=== PATIENT | female | born 1940 | race Caucasian/White ===

== ENCOUNTER 2017-03-07 11:33 | Inpatient (IN) ==
[2017-03-07] MEDS ORDERED: FUROSEMIDE 100 MG/10 ML VIAL IV STA (12:01)
[2017-03-07] MEDS ORDERED: ALBUTEROL/IPRATROPIUM 3 ML NEB RESP TX STA (12:01)
[2017-03-07] MEDS ORDERED: FUROSEMIDE 100 MG/10 ML VIAL ONE (12:07)
--- NOTE | 2017-03-07 12:22 | XRay Report ---
History: Shortness of breath Date: 03/07/2017 Study: Chest x-ray AP portable Comparison exam: September 22, 2016 There is cardiomegaly. The pulmonary vasculature is slightly prominent. There is no mediastinal mass. There is some patchy and hazy perihilar parenchymal disease bilaterally, left more than right. There is no significant pleural effusion. A left subclavian transvenous pacemaker device is generally intact and is unchanged. Surgical clips overlie the soft tissues of the lower left cervical region. Osseous structures are unchanged. Impression: Cardiomegaly and evidence of CHF with pulmonary edema PROCEDURE INTERPRETED AT [facility] DEPARTMENT OF RADIOLOGY Final Report Signed by: Dr. Cee Salas
[2017-03-07 12:38] LABS: Basophils % 0.1 % (0.0-0.8); Eosinophils % 0.1 % (0.00-10.9); Hematocrit 35.6 VOL% (35.7-47.0); Hemoglobin 11.3 GM/DL (12.0-16.0); Immature Granulocytes % 0.3 %; Immature Granulocytes Absolute 0.03 #; Lymphocytes # 0.7 10*3/uL (1.4-4.0); Lymphocytes % 8.2 % (21.3-54.2); Mean Corpuscular HGB Conc 31.7 GM/DL (32-36); Mean Corpuscular Hemoglobin 29 PG (27-34); Mean Corpuscular Volume 92.5 FL (87-102); Mean Platelet Volume 9.4 FL (9.6-12.0); Monocytes # 0.4 10*3/uL (0.11-0.8); Monocytes % 4.9 % (1.7-12.7); Neutrophils # 7.7 10*3/uL (1.4-7.4); Neutrophils % 86.4 % (38.7-73.9); Platelet Count 188 T/CUMM (130-400); Red Blood Count 3.85 MC/CUMM (3.8-5.5); White Blood Count 8.9 T/CUMM (4-12)
--- NOTE | 2017-03-07 13:43 | Emergency Department Note ---
Red Reyes Manpreet, am scribing for, and in the presence of, Bird Law MD 12:08. Ani Reyes Phillip K, MD, personally performed the services described in this documentation, ascribed by Alberto Moon in my presence, and it is both accurate and complete 343 . Arrival - Arrival Chief Complaint: Shortness of Breath ED Nursing Triage Note: C/o SOB-onset 0500 this morning. +cough with white sputum. +wheezing. Denie CP. Mode of Arrival: Stretcher Limitations: No Limitations Source: Patient Time Seen by Provider: 03/07/17 11:54 - History of Present Illness HPI Narrative: Pt is a 76 y/o female, with PMHx of HTN, CAD, CVA, COPD, and GERD, who presents to the ED with CC of SOB that woke her up this AM. Pt c/o cough with white phlegm and CP. Pt was not SOB last night. Pt's PCP is Dr. Coles, sees Dr. Velazquez for cradiology, and Dr. Matthew Townsend is her paintings conservator. Pt denies any fever but states she gets cold. No other pains/complaints reported to the ED. Onset (ago): hour(s) (This AM) Consistency: constant Severity: moderate Date of Last Menstrual Period: hysterectomy Allergies/Adverse Reactions: Allergies Allergy/AdvReac Type Severity Reaction Status Date / Time TONY Inhibitors Allergy Verified 08/18/15 07:09 propranolol [From Inderal LA] Allergy Verified 08/18/15 07:09 ranolazine [From Ranexa] Allergy Verified 08/18/15 07:09 Home Medications: Home Medications Medication Instructions Recorded Confirmed Type Ascorbic Acid [Vitamin C] 500 mg PO DAILY W/LUNCH 08/18/15 09/22/16 History Aspirin EC Tab 81 mg PO DAILY 08/18/15 09/22/16 History Atorvastatin [Lipitor] 40 mg PO BEDTIME 08/18/15 09/22/16 History Dabigatran [Pradaxa] 150 mg PO BID 08/18/15 09/22/16 History Esomeprazole Magnesium [Nexium] 40 mg PO DAILY 08/18/15 09/22/16 History Furosemide 20 mg PO BID 08/18/15 09/22/16 History Latanoprost 0.005% Oph Soln 1 drop BOTH EYES BEDTIME 08/18/15 09/22/16 History [Xalatan 0.005% Oph Soln] Losartan [Cozaar] 25 mg PO DAILY 08/18/15 09/22/16 History Nebivolol HCl [Bystolic] 20 mg PO BID 08/18/15 09/22/16 History cycloSPORINE OPH EMUL [Restasis] 1 drop BOTH EYES Q12HR 08/18/15 09/22/16 History dilTIAZem HCl [Diltiazem ER (24 120 mg PO DAILY 08/18/15 09/22/16 History hr)] Escitalopram [Lexapro] 10 mg PO DAILY 09/22/16 09/22/16 History Levothyroxine Tab [Synthroid Tab] 100 mcg PO DAILY@0700 09/22/16 09/22/16 History Umeclidinium Brm/Vilanterol Tr 1 puff INH DAILY 09/22/16 09/22/16 History [Anoro Ellipta] Review of System - Review of System 12 point system: reviewed and no additional remarkable complaints except as stated - Review of System Constitutional: Present: chills. Absent: diaphoresis, fever Head/Ears/Nose/Throat: Absent: sore throat Respiratory: Present: respiratory distress, wheezing. Absent: cough Cardiovascular: Absent: chest pain, edema Gastrointestinal: Absent: abdominal pain, nausea, vomiting Musculoskeletal: Absent: arm pain, back pain, neck pain Neurological: Absent: headache, weakness Medical,Surgical,& Family Hx - Medical History Cardio: History of: Cardiac Dysrhythmia (a fib), CAD, Hypertension, Pacemaker Neurology: History of: Cerebrovascular Accident No history of: Seizures HEENT: History of: Eye Problem, Glaucoma Endocrine: History of: Thyroid Disorder (had radiation) Respiratory: History of: COPD Genitourinary: History of: Bladder Problem Gastrointestinal: History of: GERD - Surgical History Cardiac Surgeries: Sugical HX of: Cardiac Catheterization, Carotid Endarterectomy HEENT Surgeries: Surgical HX of: Carotid Endarterectomy Abdominal Surgeries: Surgical HX of: Abdominal Surgery, Appendectomy Reproductive Surgeries: Surgical HX of;: Hysterectomy - Family History Family History: Reports;: Family Cancer (father, mother), Family Diabetes ( daughter son), Family Hypertension Denies;: Family Heart Disease, Family Psychiatric Problems, Family Stroke - Social History Smoking Status: Current every day smoker Frequency of Alcohol Use: None Type of Drug Use: None Exam Vital Signs: Vital Signs Temperature 98.4 F 03/07/17 11:38 Pulse Rate 80 03/07/17 12:20 Respiratory Rate 18 03/07/17 12:20 Blood Pressure 125/61 03/07/17 11:38 O2 Sat by Pulse Oximetry 98 03/07/17 12:20 - General General appearance: alert, in no apparent distress - Head Head exam: Present: atraumatic, normocephalic, normal inspection - Eye Eye exam: Present: normal appearance, PERRL, EOMI - ENT ENT exam: Present: normal exam, normal oropharynx, mucous membranes moist, TM's normal bilaterally - Neck Neck exam: Present: normal inspection, full ROM, trachea midline. Absent: tenderness, thyromegaly - Chest Chest inspection: Present: normal inspection, symmetric chest wall rise. Absent : tenderness - Respiratory Respiratory exam: Present: other. Absent: normal lung sounds bilaterally ( Decreased breath sounds on left), accessory muscle use - Cardiovascular Cardiovascular exam: Present: regular rate, normal rhythm, murmur (3/6 systolic ejection murmur on left sternal boarder). Absent: normal heart sounds - Abdominal Exam Abdominal exam: Present: soft, normal bowel sounds. Absent: distention, tenderness, guarding - Extremities Exam Extremities exam: Present: normal inspection, full ROM. Absent: tenderness - Back Exam Back exam: Present: normal inspection, full ROM. Absent: tenderness - Neurological Exam Neurological exam: Present: alert, oriented X3, CN II-XII intact, reflexes normal - Psychiatric Psychiatric exam: Present: normal affect, normal mood - Skin Skin exam: Present: warm, dry, intact, normal color. Absent: pallor Course Course Narrative: Patient has had 1000 cc of urinary output since her IV Lasix. She is breathing much easier. Her sats remain in the upper 80s. We will admit for further evaluation. There may be some superimposed COPD with bronchospasm in this patient. Results - Labs CBC & BMP: 03/07/17 12:22 03/07/17 12:22 Lab Results: I have reviewed the patients labs Labs: Laboratory Tests 03/07/17 12:22 WBC 8.9 RBC 3.85 Hgb 11.3 L Hct 35.6 L MCV 92.5 MCH 29 MCHC 31.7 L RDW 15.0 Plt Count 188 MPV 9.4 L Neut % (Auto) 86.4 H Lymph % (Auto) 8.2 L Lipscomb % (Auto) 4.9 Eos % (Auto) 0.1 Baso % (Auto) 0.1 Neut # (Auto) 7.7 H Lymph # (Auto) 0.7 L Lipscomb # (Auto) 0.4 Eos # (Auto) 0.0 Baso # (Auto) 0.0 Immature Gran % 0.3 Nucleated RBC % 0.0 Immature Gran # 0.03 Nucleated RBCs # 0.00 Immature Plt Fraction 0.0 - EKG EKG results: interpreted by ERMD (Atrial fibrillation with old septal OK possible lateral and inferior ischemia) - Diagnostic Findings Procedure: Chest x-ray: report reviewed by me ("Chest X-ray: Cardiomegaly and evidence of CHF with pulmonary edema.") Disposition Clinical Impression: Congestive heart failure, Anemia, Acute exacerbation of chronic obstructive airways disease Case discussed with: patient, patient's family Disposition: Still a Patient Condition: Guarded Additional Instructions: Admit to the hospitalist.
[2017-03-07 13:51] LABS: Alanine Aminotransferase 16 U/L (13-56); Albumin 3.4 G/DL (3.4-5.0); Alkaline Phosphatase 120 U/L (45-117); Aspartate Amino Transferase 19 U/L (0-37); Calcium 9.1 MG/DL (8.5-10.1); Total Protein 6.7 G/DL (6.4-8.3)
[2017-03-07 13:52] LABS: Blood Urea Nitrogen 17 MG/DL (7-18); Glucose 94 MG/DL (74-106); Magnesium 1.6 MG/DL (1.8-2.4); Osmolality,Calculated 280.4 MOS/KG (273-304); Potassium 4.2 MMOL/L (3.5-5.1); Sodium 140 MMOL/L (136-145); Troponin I Only < 0.015 NG/ML (0.00-0.045)
[2017-03-07] MEDS ORDERED: ONDANSETRON 4 MG/2 ML VIAL IV PRN (14:33)
[2017-03-07] MEDS ORDERED: DOCUSATE SODIUM 100 MG CAPSULE PO PRN (14:33)
[2017-03-07] MEDS ORDERED: guaiFENesin/DM ER 600-30 MG TABLET PO PRN (14:33)
[2017-03-07] MEDS ORDERED: ACETAMINOPHEN 325 MG TABLET PO PRN ×2 (14:33)
[2017-03-07] MEDS ORDERED: MORPHINE 2 MG/1 ML SYRINGE IV PRN (14:33)
[2017-03-07] MEDS ORDERED: diphenhydrAMINE CAP 25 MG CAPSULE PO PRN (14:33)
[2017-03-07] MEDS ORDERED: NICOTINE 21 MG/24 HR PATCH TRANSDERM PRN (14:33)
[2017-03-07] MEDS ORDERED: ONDANSETRON 4 MG/2 ML VIAL ONE (15:00)
[2017-03-07] MEDS ORDERED: ONDANSETRON 4 MG/2 ML VIAL IV STA (15:03)
--- NOTE | 2017-03-07 15:05 | Hospitalist History & Physical ---
Assessment and Plan - Time spent with patient Time spent with patient: Greater than 30 minutes (1) COPD (chronic obstructive pulmonary disease) Status: Acute Assessment and plan: 76-year-old white female with history of hypertension, CHF, COPD, tobacco abuse , A. fib on Xarelto, and Graves' disease admitted by the hospitalist service with acute CHF exacerbation. She will be admitted to telemetry, diuresed, labs and x-rays in the morning. We will go ahead and replace her mag and follow this as well. Dr. Leo we will see and examine patient and further recommendations to follow. Current Visit: Yes (2) Acute exacerbation of CHF (congestive heart failure) Status: Acute Current Visit: Yes (3) Graves disease Status: Acute Current Visit: Yes (4) CAD (coronary artery disease) Status: Chronic Current Visit: No (5) PVD (peripheral vascular disease) Status: Chronic Current Visit: No (6) Hypertension Status: Chronic Current Visit: No (7) Dyslipidemia Status: Chronic Current Visit: No (8) Atrial fibrillation Status: Chronic Current Visit: No (9) Anemia Status: Acute Current Visit: Yes History of Present Illness Chief complaint: Shortness of breath History of present illness: Ms. Iverson is a 76 year old white female with history of A. fib on Xarelto, congestive heart failure, Graves' disease, hypertension, and depression presenting to the ED with a 1 day history of shortness of breath. Patient states she had a progressive onset of shortness of breath and dyspnea on exertion that prompted her to come to the ED. She has home O2 that she uses 24 hours a day and she states her O2 sats dropped to 70%. She continues to smoke though. She takes her oxygen off when she goes outside and smoke cigarettes. Patient's associate professor of library media is Dr. Marroquin who she saw 1 month ago and all was well. Her family physician is Dr. Coles. Patient is complaining of headaches , blurry vision, intermittent dysphagia and intermittent lower extremity edema. She denies chest pain, abdominal pain, constipation or diarrhea. Upon exam patient is noted to have exophthalmos and conversational dyspnea. She is afebrile vital signs are stable and she is satting at 85% on 2 L. Pertinent labs are low mag at 1.6 and a BNP of 603. Her troponins are negative along with her white count being normal. Her chest x-ray shows cardiomegaly and evidence of CHF with pulmonary edema. After discussion with Dr. Law the ED physician and Dr. Leo the admitting hospitalist, it was agreed patient will be admitted for further evaluation and treatment. Patient's medicines have been reconciled and she is a full code. Home Medications Medication Instructions Recorded Confirmed Type Aspirin EC Tab 81 mg PO QAM 08/18/15 03/07/17 History Dabigatran [Pradaxa] 150 mg PO BID 08/18/15 03/07/17 History Furosemide 20 mg PO BID 08/18/15 03/07/17 History Latanoprost 0.005% Oph Soln 1 drop BOTH EYES BEDTIME 08/18/15 03/07/17 History [Xalatan 0.005% Oph Soln] cycloSPORINE OPH EMUL [Restasis] 1 drop BOTH EYES Q12HR 08/18/15 03/07/17 History dilTIAZem HCl [Diltiazem ER (24 120 mg PO QAM 08/18/15 03/07/17 History hr)] Escitalopram [Lexapro] 10 mg PO QAM 09/22/16 03/07/17 History Umeclidinium Brm/Vilanterol Tr 1 puff INH QAM 09/22/16 03/07/17 History [Anoro Ellipta] Amlodipine Besylate [Amlodipine 10 mg PO QAM 03/07/17 03/07/17 History Besylate] Levothyroxine Tab [Synthroid Tab] 75 mcg PO DAILY@0700 03/07/17 03/07/17 History Losartan Potassium [Losartan 50 mg PO QAM 03/07/17 03/07/17 History Potassium] Nebivolol [Bystolic] 10 mg PO BID 03/07/17 03/07/17 History Omeprazole Magnesium [Prilosec Otc] 20 mg PO BID PRN 03/07/17 03/07/17 History Allergies Allergy/AdvReac Type Severity Reaction Status Date / Time TONY Inhibitors Allergy Verified 08/18/15 07:09 propranolol [From Inderal LA] Allergy Verified 08/18/15 07:09 ranolazine [From Ranexa] Allergy Verified 08/18/15 07:09 Medical,Surgical,& Family Hx - Medical History Cardio: History of: Cardiac Dysrhythmia (a fib), CAD, Hypertension, Pacemaker Neurology: History of: Cerebrovascular Accident No history of: Seizures HEENT: History of: Eye Problem, Glaucoma Endocrine: History of: Thyroid Disorder (had radiation) Respiratory: History of: COPD Genitourinary: History of: Bladder Problem Gastrointestinal: History of: GERD - Surgical History Cardiac Surgeries: Sugical HX of: Cardiac Catheterization, Carotid Endarterectomy HEENT Surgeries: Surgical HX of: Carotid Endarterectomy Abdominal Surgeries: Surgical HX of: Abdominal Surgery, Appendectomy Reproductive Surgeries: Surgical HX of;: Hysterectomy - Family History Family History: Reports;: Family Cancer (father, mother), Family Diabetes ( daughter son), Family Hypertension Denies;: Family Heart Disease, Family Psychiatric Problems, Family Stroke - Social History Smoking Status: Current every day smoker Frequency of Alcohol Use: None Type of Drug Use: None Marital Status: Lives With:: Spouse Functional capacity: independent ambulation Review of systems: A complete 10 system review of systems was obtained and pertinent positives and negatives per HPI Exam - Constitutional Vitals: Period Temp Pulse Resp BP Sys/Puri Pulse Ox Last 24 Hr 98.4 F-98.4 F 80-88 18-22 125-125/61-61 85-98 Exam: Constitutional System: No distress. No tremulousness. Thin, pale Head: Normocephalic, atraumatic. Ears, Nose and Throat System: No evidence of Otitis or Mastoiditis. No epistaxis or discharge Eyes System: Pupils equal, round, and reactive. Extraocular muscles intact. Neck: Supple, without adenopathy, No jugular venous distention. No thyromegaly, neck mass, or prior surgery apparent. Respiratory System: Chest coarse to auscultation. Cardiovascular System: Heart with irregularly irregular rate and rhythm. No murmur. GI System: Abdomen soft, nontender. Normo active bowel sounds present. Musculoskeletal System: limbs with no pedal edema. Full distal pulses. Spider veins and varicosities noted bilateral lower extremities Neurological System: No discernable sensory deficit. No aphasia Psychiatric System: Conversation is rational Results - Labs CBC & BMP: 03/07/17 12:22 03/07/17 12:22 Lab Results: I have reviewed the past 24 hour labs - EKG EKG shows: atrial fibrillation - Impressions Possible right ventricular hypertrophy, septal myocardial infarction of indeterminate age, ST deviation and marked T-wave abnormality - Diagnostic Findings Procedure: Chest x-ray: report reviewed by me (Cardiomegaly and evidence of CHF with pulmonary edema)
[2017-03-07] MEDS: FUROSEMIDE 40 MG/4 ML VIAL IV SCH ×2 (16:30→21:49)
[2017-03-07] MEDS: NEBIVOLOL 10 MG TABLET PO SCH ×2 (16:30→21:49)
[2017-03-07] MEDS: PANTOPRAZOLE 40 MG TABLET PO SCH (16:30)
[2017-03-07] MEDS: ENOXAPARIN 40 MG/0.4 ML SYRINGE SUBCUT SCH (16:30)
[2017-03-07] MEDS: cycloSPORINE OPH EMUL 1 VIAL BOTH EYES SCH ×2 (16:30→22:02)
[2017-03-07] MEDS: LATANOPROST 0.005% OPH SOLN 2.5 ML BOTTLE BOTH EYES SCH (22:02)
[2017-03-08 04:42] LABS: Basophils % 0.1 % (0.0-0.8); Hematocrit 35.2 VOL% (35.7-47.0); Hemoglobin 11.6 GM/DL (12.0-16.0); Immature Granulocytes % 0.5 %; Immature Granulocytes Absolute 0.06 #; Lymphocytes # 1.4 10*3/uL (1.4-4.0); Mean Corpuscular Hemoglobin 30 PG (27-34); Mean Platelet Volume 10.2 FL (9.6-12.0); Monocytes # 0.6 10*3/uL (0.11-0.8); Monocytes % 4.5 % (1.7-12.7); Neutrophils # 10.9 10*3/uL (1.4-7.4); Neutrophils % 83.9 % (38.7-73.9); Platelet Count 188 T/CUMM (130-400); Red Blood Count 3.91 MC/CUMM (3.8-5.5)
[2017-03-08 05:34] LABS: Giant Platelets Few; Hypochromasia 1+; Platelet Estimate Normal
[2017-03-08] MEDS: LEVOTHYROXINE 75 MCG TABLET PO SCH (06:04)
--- NOTE | 2017-03-08 08:25 | EKG Report ---
Stationary ECG Study [facility] ER Test Date: 03/07/2017 11:44:14 AM Pat Name: LUKAS BLANCHARD Department: Room: 270 Gender: F Rag Grader: : 1940 Requested by: Bird Jean Order Number: [id number] Reading MD: CATHIE LOPEZ Intervals [place] Rate: 79 P: 999 NE: 0 QRS: 127 QRSD: 122 T: -54 QT: 383 QTc: 417 Interpretive Statements ATRIAL FIBRILLATION POSSIBLE RIGHT VENTRICULAR HYPERTROPHY SEPTAL MYOCARDIAL INFARCTION, OF INDETERMINATE AGE ST DEVIATION AND MARKED T-WAVE ABNORMALITY, CONSIDER LATERAL ISCHEMIA ST DEVIATION AND MARKED T-WAVE ABNORMALITY, CONSIDER INFERIOR ISCHEMIA Electronically Signed On 03-08-17 15:51:40 CDT by CATHIE LOPEZ [email or web address]
--- NOTE | 2017-03-08 08:58 | Physician Query Form ---
CLICK EDIT DOCUMENT TO SELECT QUERY ANSWER --> OK --> SIGN Tonja Reese RN, CCDS [facility] Cma W) [phone] (f) [phone] [email or web address] PROVIDERS: Make your selection(s) from the choices in EACH section by typing an "x" and enter comments in the comment section. Please use your independent medical judgment in providing your response. This request does not imply that any particular answer is desired or expected. CLINICAL INDICATORS: (Providers should not edit this section) The medical record indicates that the patient was admitted with CHF exacerbation , "has home 02 that she uses 24 hours a day and she states her 02 sat's dropped to 70%", the patient was admitted and placed on 2-3 liters per NC. Based on the above, could you clarify the appropriate diagnosis, if significant , that supports the above abnormalities and additional evaluation, monitoring, and/or treatment rendered: ( X) Patient was treated or monitored for chronic respiratory failure ( ) Patient was not treated or monitored for chronic respiratory failure ( ) Other, please specify: ( ) Clinically unable to determine COMMENTS: PLEASE ALSO DOCUMENT RESPONSE IN PROGRESS NOTES AND/OR DISCHARGE SUMMARY Use of terms such as suspected, likely, or probable (associated with a specific diagnosis that is being evaluated, monitored, or treated as if it exists) are acceptable and can be restated in the discharge summary if not ruled out. MTDD
[2017-03-08] MEDS ORDERED: amLODIPine 10 MG TABLET PO SCH (09:00)
[2017-03-08] MEDS: DILTIAZEM CD 120 MG CAPSULE PO SCH (09:21)
[2017-03-08] MEDS: ASPIRIN EC 81 MG TABLET PO SCH (09:22)
[2017-03-08] MEDS: PANTOPRAZOLE 40 MG TABLET PO SCH (09:22)
[2017-03-08] MEDS: LOSARTAN 50 MG TABLET PO SCH (09:22)
[2017-03-08] MEDS: FUROSEMIDE 40 MG/4 ML VIAL IV SCH (09:22)
[2017-03-08] MEDS: NEBIVOLOL 10 MG TABLET PO SCH ×2 (09:22→21:47)
[2017-03-08] MEDS: ESCITALOPRAM 10 MG TABLET PO SCH (09:22)
--- NOTE | 2017-03-08 10:11 | XRay Report ---
History short of breath Comparison 03/07/2017 Chest, 2 views The heart is enlarged with pacemaker present. There remains mild diffuse interstitial and hazy bilateral pulmonary opacities with some minimally more hazy opacity in the left perihilar region. Findings are minimally improved in the interval. Minimal pleural-based density present posteriorly and inferiorly on the left base present Impression: Minimal improvement with continued interstitial edema. Continued follow-up recommended PROCEDURE INTERPRETED AT [facility] DEPARTMENT OF RADIOLOGY Final Report Signed by: Dr. Jennifer Lowry
--- NOTE | 2017-03-08 11:47 | Hospitalist Progress Note ---
Assessment and Plan - Time spent with patient Time spent with patient: Less than 30 minutes (1) Congestive heart failure Status: Acute Assessment and plan: 03/08/17 - CXR this a.m. shows some improvement. BNP increased to 761 from 603. Will repeat CXR in a.m. Will continue diuretics. will repeat a.m. labs. Will discuss with Dr Leo for further recommendations with care. Current Visit: Yes (2) COPD (chronic obstructive pulmonary disease) Status: Acute Assessment and plan: 03/08/17 - Will continue supplemental oxygen. Will home medications/inhaler. Will continue to monitor. Current Visit: Yes (3) Anemia Status: Acute Assessment and plan: Stable. H&H 11.6 & 35.2. Current Visit: Yes (4) Atrial fibrillation Status: Chronic Assessment and plan: Magnesium is noted to be 1.6 this a.m. will order replacement protocol. Afib Chronic and Stable. Current Visit: No (5) Dyslipidemia Status: Chronic Assessment and plan: chronic. Will order Lipid panel for follow up and follow results with review home medications if need further treatment. Current Visit: No (6) Hypertension Status: Chronic Assessment and plan: Controlled. Continue to monitor. Current Visit: No Hospitalist: Subjective Interval history: Ms Iverson seen and chart reviewed. She is lying in bed without any noted distress. She reports some shortness of breath, decrease in appetite with some nausea. She reports not sleeping very well last night. She denies chest pain, fever, or chills. Exam - Constitutional Vitals: Period Temp Pulse Resp BP Sys/Puri Pulse Ox Last 24 Hr 96.5 F-98.9 F 59-83 16-20 115-134/41-78 89-98 General appearance: normal weight, no acute distress - Head Head exam: Present: normal inspection - Eye Eye exam: Present: EOMI Pupils: Present: NICKI - Neck Neck exam: Present: normal inspection - Respiratory Respiratory exam: Present: rales (bilateral at base) - Cardiovascular Cardiovascular exam: Present: irregular rhythm (chronic afib) - GI/Abdominal GI/Abdominal exam: Present: normal bowel sounds, soft. Absent: tenderness, rebound - Extremities Exam Extremities exam: Present: normal inspection, full ROM. Absent: edema - Neurological Exam Neurological exam: Present: alert, oriented X3 - Psychiatric Psychiatric exam: Present: normal affect, normal mood. Absent: agitated, anxious - Skin Skin exam: Present: normal color, warm, dry Results - Labs CBC & BMP: 03/08/17 03:52 03/07/17 12:22 Lab Results: I have reviewed the past 24 hour labs - Diagnostic Findings Procedure: Chest x-ray: report reviewed by me (03/08/17: minimal improvement with continued interstitial edema; continue follow up recommended)
[2017-03-08] MEDS ORDERED: MAGNESIUM SULF RIDER 2 GM in PREMIX 1 EACH IV ONE (13:51)
[2017-03-08] MEDS ORDERED: MAGNESIUM SULF RIDER 4 GM in PREMIX 1 EACH IV PRN (15:01)
[2017-03-08] MEDS ORDERED: MAGNESIUM SULF RIDER 2 GM in PREMIX 1 EACH IV PRN (15:01)
--- NOTE | 2017-03-08 15:02 | Cardiology Consult Note ---
<Karoline Welch E - Last Filed: 03/08/17 14:42> Assessment and Plan - Time spent with patient Time spent with patient: Greater than 30 minutes (due to assessment, plan, and documentation) (1) Congestive heart failure Status: Acute Assessment and plan: See plan of care listed below. Current Visit: Yes Qualifiers: Congestive heart failure chronicity: acute (2) COPD (chronic obstructive pulmonary disease) Status: Chronic Assessment and plan: See plan of care listed below. Current Visit: Yes (3) CAD (coronary artery disease) Status: Chronic Assessment and plan: See plan of care listed below. Current Visit: No (4) PVD (peripheral vascular disease) Status: Chronic Assessment and plan: See plan of care listed below. Current Visit: No (5) Hypertension Status: Chronic Assessment and plan: See plan of care listed below. Current Visit: No (6) Dyslipidemia Status: Chronic Assessment and plan: See plan of care listed below. Current Visit: No (7) Atrial fibrillation Status: Chronic Assessment and plan: See plan of care listed below. Current Visit: No History of Present Illness - Data of Consult Patient: known to practice within the last 3 years Consult date: 03/08/17 Requesting Physician: Jeff Leo Primary care physician: Nithya Coles - Consult Narrative Reason for consult: CHF History of present illness: Quality Assurance Test Program Manager: Dr. Velazquez PCP: Dr. Coles Ms. Iverson is a 76 year old female with a history of coronary artery disease requiring PCI in the past, atrial fibrillation, s/p permanent pacemaker implantation, paroxysmal SVT, COPD, and tobacco abuse. Her last heart catheterization on 09/22/16 revealed patent stent to the obtuse marginal artery, mild to moderate residual coronary artery disease, mild to moderate aortic insufficiency, ejection fraction greater than 70%, moderate to severe atherosclerotic valvular disease with bilateral iliac hazy stenosis and left superficial femoral artery stenosis. She continues to smoke. She is allergic to TONY inhibitors. Ms. Iverson presented to the emergency room on 03/07/17 with complaints of sudden onset dyspnea. She states that she was in her usual state of health until Sunday when she woke up that morning. She reports she ambulated to the bathroom and by the time she made it back to her bedside, she had become very short of breath. She had associated symptoms of dizziness but denies any chest pain, palpitations, lightheadedness, syncope, recent fever, or chills. She does admit to feeling more fatigued and weak in the past several weeks. She states her lower extremities do tend to swell, but this has not worsened recently. She uses home O2 routinely and reports that when she has taken her O2 off to go outside, her SpO2 drops into the 70s. She also has complaints of headaches, blurry vision, and intermittent dysphagia. She saw Dr. Velazquez in clinic on and voiced no complaints other than occasional dizziness and claudication (which had been improving). Upon arrival to our facility, Ms. Iverson was noted to have a BNP of 603, now up to 761. Her creatinine was 0.53, potassium 4.2. Magnesium was 1.6. Chest x-ray today shows continued interstitial edema with minimal improvement. She continues to have some conversational dyspnea although she reports she is breathing much better than she was upon admission. ASSESSMENT/PLAN: 1. ACUTE CONGESTIVE HEART FAILURE - Suspect diastolic in nature. Echocardiogram is pending. Prior EF was >70% in September 2016. Continue diuresis with IV Lasix. She is negative approximately 3L in her I&O's. Continue strict I&O's and daily weights. 2. COPD - Hospital medicine is following. Home medications were continued and she is on O2 PRN via NBP. 3. CORONARY ARTERY DISEASE - Her last heart catheterization on 09/22/16 revealed patent stent to the obtuse marginal artery, mild to moderate residual coronary artery disease, mild to moderate aortic insufficiency, ejection fraction greater than 70%, moderate to severe atherosclerotic valvular disease with bilateral iliac hazy stenosis and left superficial femoral artery stenosis. 4. PERIPHERAL VASCULAR DISEASE - DEIDRE's on 10/03/16 revealed mild to moderate right and left peripheral vascular disease. 5. HYPERTENSION - Currently well controlled. She is on Norvasc as well as Cardizem CD. According to the last clinic note, there was some confusion with her medications and her Norvasc was decreased to 5mg po daily in an attempt to wean her completely. 6. DYSLIPIDEMIA - Currently not requiring lipid lowering agent. Will recheck lipid panel in AM. 7. ATRIAL FIBRILLATION - Currently in atrial fibrillation. She is chronically anticoagulated with Pradaxa. H&H mildly diminished but stable at 11.6 and 35.2. 8. S/P PACEMAKER IMPLANTATION - Patient has a [employer] device which was last interrogated on 02/26/17 and found to be functioning appropriately with 55% AUDIO VISUAL AIDE. 9. HYPOMAGNESEMIA - Magnesium was 1.6 yesterday and today. She received some IV magnesium today but has also been started on the replacement protocol. CC: Jeff Leo MD - Home Medications and Allergies Home Medications: Home Medications Medication Instructions Recorded Confirmed Type Aspirin EC Tab 81 mg PO QAM 08/18/15 03/07/17 History Dabigatran [Pradaxa] 150 mg PO BID 08/18/15 03/07/17 History Furosemide 20 mg PO BID 08/18/15 03/07/17 History Latanoprost 0.005% Oph Soln 1 drop BOTH EYES BEDTIME 08/18/15 03/07/17 History [Xalatan 0.005% Oph Soln] cycloSPORINE OPH EMUL [Restasis] 1 drop BOTH EYES Q12HR 08/18/15 03/07/17 History dilTIAZem HCl [Diltiazem ER (24 120 mg PO QAM 08/18/15 03/07/17 History hr)] Escitalopram [Lexapro] 10 mg PO QAM 09/22/16 03/07/17 History Umeclidinium Brm/Vilanterol Tr 1 puff INH QAM 09/22/16 03/07/17 History [Anoro Ellipta] Amlodipine Besylate [Amlodipine 10 mg PO QAM 03/07/17 03/07/17 History Besylate] Levothyroxine Tab [Synthroid Tab] 75 mcg PO DAILY@0700 03/07/17 03/07/17 History Losartan Potassium [Losartan 50 mg PO QAM 03/07/17 03/07/17 History Potassium] Nebivolol [Bystolic] 10 mg PO BID 03/07/17 03/07/17 History Omeprazole Magnesium [Prilosec Otc] 20 mg PO BID PRN 03/07/17 03/07/17 History Allergies/Adverse Reactions: Allergies Allergy/AdvReac Type Severity Reaction Status Date / Time TONY Inhibitors Allergy Verified 08/18/15 07:09 propranolol [From Inderal [place]] Allergy Verified 08/18/15 07:09 ranolazine [From Ranexa] Allergy Verified 08/18/15 07:09 Review of systems: - Constitutional: Present: headache(s), fatigue, weakness, As per HPI. Absent: anorexia, chills, daytime sleepiness, excessive sweating, fever(s), frequent falls, increased appetite, lethargy, malaise, night sweats, stops breathing during sleep, weight gain, weight loss - EENT Eyes: Present: blurry vision, As per HPI. Absent: diplopia, loss of vision Ears: Present: As per HPI. Absent: decreased hearing, ear discharge, ear pain Nose, mouth and throat: Present: intermittent dysphagia, As per HPI. Absent: epistaxis, headache(s), hoarseness, lip swelling, nasal congestion, neck mass, neck pain, sinus pressure, sore throat, throat swelling, tongue swelling, vertigo - Cardiovascular: Present: dyspnea, dyspnea on exertion, edema, as per HPI. Absent: chest pain at rest, chest pain with activity, claudication, diaphoresis , radiating jaw, neck or arm pain, lightheadedness, orthopnea, palpitations, PND - Respiratory: Present: dyspnea, dyspnea on exertion, cough, as per HPI. Absent : hemoptysis, wheezing, snoring, pain on inspiration - Gastrointestinal: Present: As per HPI. Absent: abdominal pain, bloating, change in bowel habits, constipation, diarrhea, heartburn, hematemesis, hematochezia, loose stools, melena, nausea, vomiting - Genitourinary: Present: As per HPI. Absent: difficulty urinating, dysuria, flank pain, hematuria, nocturia, urinary frequency, urinary incontinence - Musculoskeletal: Present: As per HPI. Absent: arthralgias, back pain, joint swelling, limited range of motion, muscle cramps, muscle weakness, myalgias - Neurological: Present: dizziness, weakness, As per HPI. Absent: abnormal gait , abnormal speech, behavioral changes, confusion, convulsions, disequilibrium, focal frequent falls, headache(s), memory loss, numbness, paresthesias, radicular pain, syncope, tremor(s) - Psychiatric: Present: As per HPI. Absent: anxiety, confusion, depression, panic attacks - Endocrine: Present: fatigue, As per HPI. Absent: cold intolerance, heat intolerance, polydipsia, polyphagia - Hematologic/Lymphatic: Present: As per HPI. Absent: easy bleeding, easy bruising, lymphadenopathy Medical,Surgical,& Family Hx - Medical History Cardio: History of: Cardiac Dysrhythmia (a fib), CAD, Hypertension, Pacemaker Neurology: History of: Cerebrovascular Accident No history of: Seizures HEENT: History of: Eye Problem, Glaucoma Endocrine: History of: Thyroid Disorder (had radiation GRAVES DIS) Respiratory: History of: COPD Genitourinary: History of: Bladder Problem Gastrointestinal: History of: GERD Musculoskeletal: History of: Back/Neck Problems (diskectomy L4-L5) - Surgical History Cardiac Surgeries: Sugical HX of: Cardiac Catheterization (stents x 2), Carotid Endarterectomy HEENT Surgeries: Surgical HX of: Carotid Endarterectomy Abdominal Surgeries: Surgical HX of: Abdominal Surgery, Appendectomy Reproductive Surgeries: Surgical HX of;: Hysterectomy - Family History Family History: Reports;: Family Cancer (father, mother), Family Diabetes ( daughter son), Family Hypertension Denies;: Family Heart Disease, Family Psychiatric Problems, Family Stroke - Social History Smoking Status: Current every day smoker Frequency of Alcohol Use: None Type of Drug Use: None Marital Status: Lives With:: Spouse Physical Examination Vital Signs Temp Pulse Resp BP Pulse Ox 98.4 F 88 22 125/61 85 L 03/07/17 11:38 03/07/17 11:38 03/07/17 11:38 03/07/17 11:38 03/07/17 11:38 Exam: General appearance: Pleasant and cooperative. Mild conversational dyspnea. O2 via NBP. Head exam: Present: normal inspection, normocephalic, atraumatic. Absent: hematoma, laceration Eye exam: Present: EOMI, exopthalmos. Absent: conjunctival injection, nystagmus , periorbital swelling, scleral icterus, laceration to eyelids Pupils: Present: PERRL. Absent: constricted, dilated, fixed, irregular, unequal ENT exam: Present: normal exam, normal external ear exam Neck exam: Present: normal inspection, bilateral carotid bruit. Absent: lymphadenopathy, meningismus, tenderness, thyromegaly Respiratory exam: Present: scattered rales anteriorly and posteriorly, poor air movement in bilateral bases. Absent: accessory muscle use, chest wall tenderness, rhonchi, wheezing. Cardiovascular exam: Present: Irregular rhythm. Systolic murmur. Absent: gallop , rubs GI/Abdominal exam: Present: normal bowel sounds, soft. Absent: distended, firm , guarding, hernia, mass, tenderness, rebound. Extremities exam: Present: normal inspection, normal capillary refill. Upper extremity pulses 2+. Lower extremity pulses diminished. Absent: calf tenderness , edema Musculoskeletal: Present: No Fluid Collection, No Pain, Normal Range of Motion Back exam: Present: normal inspection. Absent: muscle spasm, vertebral tenderness Neurological exam: Present: alert, oriented X3, grossly intact without resting or essential tremor Psychiatric exam: Present: normal affect, normal mood Skin exam: Present: normal color, warm, dry, intact. Absent: cyanosis, diaphoretic, rash, urticaria Result/EKG - Labs CBC & BMP: 03/08/17 03:52 03/07/17 12:22 Lab Results: I have reviewed the past 24 hour labs Labs: Laboratory Results - last 24 hr 03/08/17 03/08/17 03/08/17 03:52 03:52 03:52 WBC 13.0 H D RBC 3.91 Hgb 11.6 L Hct 35.2 L MCV 90.0 MCH 30 MCHC 33.0 RDW 15.0 Plt Count 188 MPV 10.2 Neut % (Auto) 83.9 H Lymph % (Auto) 11.0 L [place] % (Auto) 4.5 Eos % (Auto) 0.0 Baso % (Auto) 0.1 Neut # (Auto) 10.9 H Lymph # (Auto) 1.4 [place] # (Auto) 0.6 Eos # (Auto) 0.0 Baso # (Auto) 0.0 Immature Gran % 0.5 Nucleated RBC % 0.0 Immature Gran # 0.06 Nucleated RBCs # 0.00 Platelet Estimate Normal Giant Platelets Few Immature Plt Fraction 0.0 Hypochromasia 1+ Magnesium 1.6 L B-Natriuretic Peptide 761 H - EKG EKG results: interpreted by me EKG shows: atrial fibrillation <Danica Velazquez - Last Filed: 03/08/17 17:56> History of Present Illness - Consult Narrative History of present illness: I have personally interviewed and evaluated the patient, reviewed the chart and discussed medical decision-making with practitioner Yuri. I have read this note and agree with her documentation here in. The following correction should be noted: The patient had "moderate to severe atherosclerotic vascular disease with bilateral iliac hazy stenosis", and not valvular disease as described above. She is admitted with significant hypoxemia. She does not have a history of heart failure, her systolic function has been normal, she is not in an uncontrolled rhythm, and she is does not have a recent history of severe valvular heart disease. Her clinical presentation is very worrisome for more of a pulmonary process. I am going to order a CT scan of the chest to try to better delineate her condition. Of note, the patient's was recently hospitalized in [place] for TAVR and they have just returned 2 days ago. She was not necessarily taking her medications as prescribed during that time, and she was consuming higher than usual salt content. However, again her presentation appears more consistent with a pulmonary process that a primary cardiac 1. We will continue to follow with you. CC: Jeff Leo MD Physical Examination Vital Signs Temp Pulse Resp BP Pulse Ox 98.4 F 88 22 125/61 85 L 03/07/17 11:38 03/07/17 11:38 03/07/17 11:38 03/07/17 11:38 03/07/17 11:38 Exam: Ill-appearing Result/EKG - Labs CBC & BMP: 03/08/17 03:52 03/07/17 12:22 Labs: Laboratory Results - last 24 hr 03/08/17 03/08/17 03/08/17 03:52 03:52 03:52 WBC 13.0 H D RBC 3.91 Hgb 11.6 L Hct 35.2 L MCV 90.0 MCH 30 MCHC 33.0 RDW 15.0 Plt Count 188 MPV 10.2 Neut % (Auto) 83.9 H Lymph % (Auto) 11.0 L [place] % (Auto) 4.5 Eos % (Auto) 0.0 Baso % (Auto) 0.1 Neut # (Auto) 10.9 H Lymph # (Auto) 1.4 [place] # (Auto) 0.6 Eos # (Auto) 0.0 Baso # (Auto) 0.0 Immature Gran % 0.5 Nucleated RBC % 0.0 Immature Gran # 0.06 Nucleated RBCs # 0.00 Platelet Estimate Normal Giant Platelets Few Immature Plt Fraction 0.0 Hypochromasia 1+ Magnesium 1.6 L B-Natriuretic Peptide 761 H
[2017-03-08] MEDS: cycloSPORINE OPH EMUL 1 VIAL BOTH EYES SCH ×2 (16:05→22:36)
[2017-03-08] MEDS: ENOXAPARIN 40 MG/0.4 ML SYRINGE SUBCUT SCH (16:12)
--- NOTE | 2017-03-08 17:07 | CT Report ---
CT chest PE study Indication: Dyspnea. CT CHEST WITH CONTRAST, PE PROTOCOL DLP: 183 mGy*cm. One or more of the following dose reduction techniques was used: Automated exposure control, adjustment of the mA and/or kV according the patient size, or use of iterative reconstruction techniques. Comparison: None Technique: Axial CT images of the chest were obtained during the pulmonary arterial phase of contrast injection. Coronal reconstructions were provided. Omnipaque 350, 100 cc. Findings: No central, lobar or segmental pulmonary artery filling defects. Main pulmonary artery is normal in size. Heart size is upper limits normal. There is extensive calcified atheromatous disease of the coronary arteries and aorta. Pacemaker is present as well. Hilar lymphadenopathy is present, largest node subcarinal measuring 30 x 17 mm. No axillary lymphadenopathy. There is widespread patchy alveolar consolidation of both lung sam, all lobes involved with a basilar and posterior predominance. A thin-walled pulmonary cyst is present left lower lobe,. 28 mm diameter. Emphysematous changes are noted at both pulmonary apices. Pleural spaces are clear. There are some atelectasis of the posterior lung bases. Endplate degenerative changes thoracic spine are present but mild. Limited views of the upper abdomen show hypodensity the liver and a metallic fragment anterior to the dome of the liver. Benign 21 x 10 mm left adrenal adenoma is present, density of -2 Hounsfield units. Upper abdomen is otherwise benign-appearing. Impression: 1. No evidence of PE. 2. Multilobar patchy areas of alveolar consolidation are present with a somewhat basilar and posterior predominance. Differential is multilobar pneumonia, ARDS, or neoplasm. 3. Left lower lobe pulmonary cyst, 28 mm diameter. 4. Borderline cardiomegaly. Extensive calcified atheromatous disease. Pacemaker device. 5. Mediastinal lymphadenopathy. PROCEDURE INTERPRETED AT [facility] DEPARTMENT OF RADIOLOGY Final Report Signed by: Epifanio Little M.D.
[2017-03-08 17:59] LABS: ABG HCO3 32.3 MMOL/L (20-26); ABG Oxygen Saturation 78.4 % (95-100); ABG PCO2 47.2 MM HG (35-48); ABG PH 7.466 (7.35-7.45); ABG PO2 43.1 MM HG (80-95); ABG TCO2 30.6 MMOL/L (23-27)
--- NOTE | 2017-03-08 18:42 | ECHO Report ---
Veronica Iverson Exam Date: 03/08/2017 14:44 Referring Physician: Technologist: Sandee Gonzáles Age: 76 Ht (in): 66 Wt (lb): 123 Gender: F Exam Location: [facility] Echo Indications: CHF, thyroid disorder, COPD, GERD, A fib, HTN, pacemker BP: 93 / 53 HR: 81 Rhythm: Sinus Technical Quality: Technically difficult study IMPRESSIONS Normal LV systolic and diastolic function, ejection fraction estimated at 55-60%. Mild left atrial enlargement. Mild mitral regurgitation. Mild to moderate aortic stenosis, mild aortic regurgitation. Mild tricuspid regurgitation. Pulmonary artery pressures estimated at 40 mmHg plus right atrial pressure. MEASUREMENTS (Male / Female) Normal Values 2D ECHO LV Diastolic Diameter PLAX 4.5 cm 4.2 - 5.9 / 3.9 - 5.3 cm LV Systolic Diameter PLAX 3.3 cm LV Fractional Shortening PLAX 26.0 % IVS Diastolic Thickness 1.0 cm 0.6 - 1.0 / 0.6 - 0.9 cm LVPW Diastolic Thickness 1.2 cm 0.6 - 1.0 / 0.6 - 0.9 cm Aortic Root Diameter 2.2 cm LA Systolic Diameter LX 4.5 cm 3.0 - 4.0 / 2.7 - 3.8 cm DOPPLER TR Peak Velocity 317.0 cm/s TR Peak Gradient 40.2 mmHg FINDINGS Left Ventricle Normal left ventricular cavity size. Mild concentric left ventricular hypertrophy with diastolic dysfunction. Left ventricular ejection fraction is estimated at 55-60% Right Ventricle Normal right ventricular size. Right Atrium The right atrium is mildly enlarged. Left Atrium The left atrium is mildly enlarged. Mitral Valve Mildly thickened mitral valve with mild mitral regurgitation. Aortic Valve Mild aortic valve stenosis. Mild to moderate aortic valve stenosis, mean gradient 25 mmHg, KATARZYNA 1.1 cm. Mild aortic valve regurgitation. Tricuspid Valve Morphologically normal tricuspid valve. Trace - mild tricuspid valve regurgitation. Tricuspid regurgitation velocities suggest a PAP of 40.2mmHg + RAP. Pulmonic Valve Mild thickened pulmonic valve. Pericardium No pericardial effusion. Aorta Normal size aortic root and proximal ascending aorta. Danica Velazquez MD (Electronically Signed) Final Date: 08 March 2017 18:41
[2017-03-08] MEDS ORDERED: SUCCINYLCHOLINE 200 MG/10 ML VIAL ONE (18:44)
[2017-03-08] MEDS ORDERED: MIDAZOLAM 10 MG/2 ML VIAL ONE (18:44)
[2017-03-08] MEDS ORDERED: SUCCINYLCHOLINE 200 MG/10 ML VIAL IV ONE (18:50)
[2017-03-08] MEDS ORDERED: MIDAZOLAM 2 MG/2 ML VIAL IV ONE (18:50)
[2017-03-08] MEDS ORDERED: PROPOFOL 1,000 MG/100 ML BOTTLE IV SCH (19:01)
[2017-03-08] MEDS ORDERED: PROPOFOL 1,000 MG/100 ML BOTTLE IV ONE (19:01)
--- NOTE | 2017-03-08 19:07 | Event Note ---
Procedure note: Endotracheal intubation and initiation of mechanical ventilation The patient was sedated with 5 mg Versed and paralyzed with 50 mg succinylcholine. Violet Wheatley was supervised by myself in using the glide scope and 7.5 endotracheal tube. The vocal cords were visualized and the tube was placed through them. Color change cube was utilized to verify placement in the lungs. Chest x-ray and ABG are now ordered as well as pulmonary consultation.
[2017-03-08] MEDS: ALBUTEROL/IPRATROPIUM 3 ML NEB RESP TX SCH (19:10)
--- NOTE | 2017-03-08 19:45 | XRay Report ---
XR chest 1V portable Indication: Intubated. Chest one view: Since earlier today, patient has been intubated, endotracheal tube 2 cm cephalad the cathleen. Increased patchy right basilar and left perihilar infiltrates noted. Pacemaker stable. Cardiomegaly is unchanged. Impression: Adequate intubation. Increasing multifocal pneumonia versus edema. PROCEDURE INTERPRETED AT [facility] DEPARTMENT OF RADIOLOGY Final Report Signed by: Epifanio Little M.D.
[2017-03-08] MEDS: LEVOFLOXACIN INJ 500 MG in PREMIX 1 EACH IV SCH (20:54)
[2017-03-08 21:00] LABS: ABG Base Excess 7.8 MMOL/L (-2.5-2.5); ABG HCO3 31.9 MMOL/L (20-26); ABG Oxygen Saturation 98.9 % (95-100); ABG PCO2 42.8 MM HG (35-48); ABG PO2 177.2 MM HG (80-95); ABG TCO2 33.2 MMOL/L (23-27); Allen Test Positive; Pt O2 Delivery Device Ventilator
[2017-03-08] MEDS ORDERED: DABIGATRAN 150 MG CAPSULE PO SCH (21:00)
[2017-03-08] MEDS: MIDAZOLAM 100 MG in SODIUM CHLORIDE 0.9% 80 ML IV SCH (21:02)
[2017-03-08] MEDS: LORazepam 2 MG/1 ML VIAL IV PRN (22:07)
[2017-03-08] MEDS: cefTRIAXone 1,000 MG in SODIUM CHLORIDE 0.9% 100 ML IV SCH (22:15)
[2017-03-09] MEDS: LATANOPROST 0.005% OPH SOLN 2.5 ML BOTTLE BOTH EYES SCH ×2 (00:06→20:37)
[2017-03-09] MEDS: ENOXAPARIN 60 MG/0.6 ML SYRINGE SUBCUT SCH ×3 (00:06→23:52)
[2017-03-09] MEDS: ALBUTEROL/IPRATROPIUM 3 ML NEB RESP TX SCH ×4 (01:13→19:59)
[2017-03-09 04:57] LABS: Basophils % 0.1 % (0.0-0.8); Hematocrit 32.5 VOL% (35.7-47.0); Hemoglobin 10.5 GM/DL (12.0-16.0); Immature Granulocytes % 0.9 %; Immature Granulocytes Absolute 0.08 #; Lymphocytes # 0.7 10*3/uL (1.4-4.0); Lymphocytes % 7.6 % (21.3-54.2); Mean Corpuscular HGB Conc 32.3 GM/DL (32-36); Mean Corpuscular Hemoglobin 29 PG (27-34); Mean Corpuscular Volume 89.5 FL (87-102); Mean Platelet Volume 10.8 FL (9.6-12.0); Monocytes # 0.5 10*3/uL (0.11-0.8); Monocytes % 5.4 % (1.7-12.7); Neutrophils # 7.8 10*3/uL (1.4-7.4); Platelet Count 191 T/CUMM (130-400); Red Blood Count 3.63 MC/CUMM (3.8-5.5); Red Cell Distribution Width 14.7 % (9.3-17.3)
[2017-03-09 04:59] LABS: ABG Base Excess 7.7 MMOL/L (-2.5-2.5); ABG HCO3 31.6 MMOL/L (20-26); ABG Oxygen Saturation 99.8 % (95-100); ABG PCO2 36.4 MM HG (35-48); ABG PH 7.535 (7.35-7.45); ABG TCO2 27.7 MMOL/L (23-27); Allen Test Positive; Pt O2 Delivery Device Ventilator
[2017-03-09 05:25] LABS: Band Neutrophils 12 % (0-10); Giant Platelets Few; Hypochromasia 1+; Lymphocytes 3 % (20-55); Platelet Estimate Adequate; Segmented Neutrophils 77 % (50-85); Total Cells Counted 100
[2017-03-09 05:30] LABS: Magnesium 2.3 MG/DL (1.8-2.4); Potassium 2.9 MMOL/L (3.5-5.1); VLDL CHOLESTEROL 32.4 MG/DL
[2017-03-09] MEDS: LEVOTHYROXINE 75 MCG TABLET PO SCH (06:12)
--- NOTE | 2017-03-09 08:24 | Cardiology Progress Note ---
<Karoline Welch E - Last Filed: 03/09/17 10:17> Assessment and Plan - Time spent with patient Time spent with patient: Less than 30 minutes (1) Dyspnea Status: Acute Assessment and plan: See plan of care listed below. Current Visit: Yes (2) COPD (chronic obstructive pulmonary disease) Status: Chronic Assessment and plan: See plan of care listed below. Current Visit: Yes (3) CAD (coronary artery disease) Status: Chronic Assessment and plan: See plan of care listed below. Current Visit: No (4) PVD (peripheral vascular disease) Status: Chronic Assessment and plan: See plan of care listed below. Current Visit: No (5) Hypertension Status: Chronic Assessment and plan: See plan of care listed below. Current Visit: No (6) Dyslipidemia Status: Chronic Assessment and plan: See plan of care listed below. Current Visit: No (7) Atrial fibrillation Status: Chronic Assessment and plan: See plan of care listed below. Current Visit: No Cardiology - PN: Subj Interval history: Network Coordinator: Dr. Velazquez PCP: Dr. Coles SUMMARY: Ms. Iverson is a 76 year old female who presented to the emergency room on 03/07/17 with complaints of sudden onset dyspnea and hypoxemia. She has a history of coronary artery disease requiring PCI in the past, atrial fibrillation, s/p permanent pacemaker implantation, paroxysmal SVT , COPD, and tobacco abuse. She does not have a history of heart failure, her systolic function has been normal, she is not in an uncontrolled rhythm, and she is does not have a recent history of severe valvular heart disease. Her clinical presentation is very worrisome for more of a pulmonary process. Her last heart catheterization on 09/22/16 revealed patent stent to the obtuse marginal artery, mild to moderate residual coronary artery disease, mild to moderate aortic insufficiency, ejection fraction greater than 70%, moderate to severe atherosclerotic vascular disease with bilateral iliac hazy stenosis, and left superficial femoral artery stenosis. Ms. Iverson's was recently hospitalized in [place] for TAVR and they have just returned 2 days ago. She was not necessarily taking her medications as prescribed during that time, and she was consuming higher than usual salt content. MARCH 09, 2017 UPDATE: Yesterday evening, Ms. Iverson developed progressive dyspnea and was subsequently intubated in CCU to improve her oxygenation. This morning, she is resting comfortably on the ventilator. Pulmonology has been consulted. She has diuresed over 3L since admission but has had no recent urine output. Her Lasix is being stopped and she will receive a NS bolus. Her creatinine also jumped from 0.5 to 1.[address] yesterday suggested lung infection . Although her WBC is normal today, yesterday, it was elevated with a left shift. She has been started on IV antibiotics. Echo yesterday revealed normal systolic and diastolic function. Her vital signs have been stable with a couple of hypotensive readings through the night. We will continue to monitor. ASSESSMENT/PLAN: 1. DYSPNEA - Ms. Iverson had an initial presentation suspicious for CHF with chest x-ray showing interstitial edema and elevated BNP. After diuresis of over 3L, she continued to have significant dyspnea and hypoxia. Her echocardiogram revealed normal LV systolic and diastolic function, mild LA enlargement, mild MR , mild AI, mild TR. We obtained a CT chest yesterday evening which revealed no evidence of PE, left lower lobe pulmonary cyst 28mm in diameter, mediastinal lymphadenopathy, and multilobar patchy areas of alveolar consolidation suggestive of multilobar pneumonia, ARDS, or neoplasm. 2. COPD - Hospital medicine is following. She is now intubated and on mechanical ventilation. 3. CORONARY ARTERY DISEASE - Her last heart catheterization on 09/22/16 revealed patent stent to the obtuse marginal artery, mild to moderate residual coronary artery disease, mild to moderate aortic insufficiency, ejection fraction greater than 70%, moderate to severe atherosclerotic valvular disease with bilateral iliac hazy stenosis and left superficial femoral artery stenosis. 4. PERIPHERAL VASCULAR DISEASE - DEIDRE's on 10/03/16 revealed mild to moderate right and left peripheral vascular disease. 5. HYPERTENSION - Currently well controlled. She is on Norvasc as well as Cardizem CD. We will change this to the short acting Cardizem while she is intubated and on the ventilator. According to the last clinic note, there was some confusion with her medications and her Norvasc was decreased to 5mg po daily in an attempt to wean her completely. We will continue on 5mg Norvasc for another day or two before weaning her off completely. 6. DYSLIPIDEMIA - Lipid panel revealed triglycerides 162, cholesterol 152, LDL 81, and HDL 38. 7. ATRIAL FIBRILLATION - Currently in atrial fibrillation. She is chronically anticoagulated with Pradaxa. H&H mildly diminished but stable at 10.5 and 32.5. 8. S/P PACEMAKER IMPLANTATION - Patient has a [employer] device which was last interrogated on 02/26/17 and found to be functioning appropriately with 55% [employer]. 9. HYPOMAGNESEMIA - Initially 1.6, now up to 2.3 after replacement and is on the replacement protocol. Exam (Progress Note) - Constitutional Vitals: Period Temp Pulse Resp BP Sys/Puri Pulse Ox Last 24 Hr 96.7 F-98.6 F 71-101 15-31 74-189/38-91 82-100 Exam: General appearance: Orally intubated and sedated on ventilator. Normal weight, no acute distress. - Head Head exam: Present: normal inspection, normocephalic, atraumatic. Absent: hematoma, laceration - Eye Eye exam: Present: EOMI. Absent: conjunctival injection, nystagmus, periorbital swelling, scleral icterus, laceration to eyelids Pupils: Present: PERRL. Absent: constricted, dilated, fixed, irregular, unequal - ENT ENT exam: Present: Orally intubated, normal external ear exam - Neck Neck exam: Present: normal inspection. Absent: lymphadenopathy, meningismus, tenderness - Respiratory Respiratory exam: Present: Mechanically ventilated breath sounds. Absent: accessory muscle use - Cardiovascular Cardiovascular exam: Present: regular rate and rhythm. bilateral carotid bruit, systolic murmur Absent: gallop, rubs - GI/Abdominal GI/Abdominal exam: Present: normal bowel sounds, soft. Absent: distended, firm , guarding, hernia, mass, tenderness, rebound. - Extremities Exam Extremities exam: Present: normal inspection, normal capillary refill. Upper extremity pulses 2+. Lower extremity pulses 2+. Absent: calf tenderness, edema - Back Exam Back exam: Present: Unable to examine due to habitus. Sedated on mechanical ventilator. - Neurological Exam Neurological exam: Present: Limited due to habitus (on ventilator). Arousable to verbal stimuli. Will follow commands to move all extremities. No resting or essential tremor. - Psychiatric Psychiatric exam: Present: Unable to adequately assess due to patient being sedated and on mechanical ventilation. - Skin Skin exam: Present: normal color, warm, dry, intact. Absent: cyanosis, diaphoretic, rash, urticaria Result/EKG - Labs CBC & BMP: 03/09/17 03:59 03/09/17 03:59 Lab Results: I have reviewed the past 24 hour labs Labs: Laboratory Results - last 24 hr 03/08/17 03/08/17 03/08/17 17:52 18:36 21:00 WBC RBC Hgb Hct MCV MCH MCHC RDW Plt Count MPV Neut % (Auto) Lymph % (Auto) Grimes % (Auto) Eos % (Auto) Baso % (Auto) Neut # (Auto) Lymph # (Auto) Grimes # (Auto) Eos # (Auto) Baso # (Auto) Total Counted Immature Gran % Nucleated RBC % Immature Gran # Segmented Neutrophils Band Neutrophils Lymphocytes Monocytes Nucleated RBCs # Platelet Estimate Giant Platelets Immature Plt Fraction Hypochromasia D-Dimer, Quantitative 1.5 ABG pH 7.466 H 7.490 H ABG pCO2 47.2 42.8 ABG pO2 43.1 L 177.2 H ABG HCO3 32.3 H 31.9 H ABG Total CO2 30.6 H 33.2 H ABG O2 Saturation 78.4 L 98.9 ABG Base Excess 9.0 H 7.8 H FiO2 100.00 Sodium Potassium Chloride Carbon Dioxide Anion Gap BUN Creatinine GFR Calculation BUN/Creatinine Ratio Glucose Calculated Osmolality Calcium Magnesium B-Natriuretic Peptide Triglycerides Cholesterol LDL Cholesterol VLDL Cholesterol HDL Cholesterol Heart Disease Risk Ratio 03/09/17 03/09/17 03/09/17 03:59 03:59 03:59 WBC 9.0 D RBC 3.63 L Hgb 10.5 L Hct 32.5 L MCV 89.5 MCH 29 MCHC 32.3 RDW 14.7 Plt Count 191 MPV 10.8 Neut % (Auto) 86.0 H Lymph % (Auto) 7.6 L Grimes % (Auto) 5.4 Eos % (Auto) 0.0 Baso % (Auto) 0.1 Neut # (Auto) 7.8 H Lymph # (Auto) 0.7 L Grimes # (Auto) 0.5 Eos # (Auto) 0.0 Baso # (Auto) 0.0 Total Counted 100 Immature Gran % 0.9 Nucleated RBC % 0.0 Immature Gran # 0.08 Segmented Neutrophils 77 Band Neutrophils 12 H Lymphocytes 3 L Monocytes 8 Nucleated RBCs # 0.00 Platelet Estimate Adequate Giant Platelets Few Immature Plt Fraction 0.0 Hypochromasia 1+ D-Dimer, Quantitative ABG pH ABG pCO2 ABG pO2 ABG HCO3 ABG Total CO2 ABG O2 Saturation ABG Base Excess FiO2 Sodium 136 Potassium 2.9 L Chloride 93 L Carbon Dioxide 33 H Anion Gap 12.9 BUN 41 H Creatinine 1.40 H GFR Calculation 35 BUN/Creatinine Ratio 29.00 H Glucose 122 H Calculated Osmolality 282.0 Calcium 9.0 Magnesium 2.3 B-Natriuretic Peptide 360 H Triglycerides 162 H Cholesterol 152 LDL Cholesterol 81.0 VLDL Cholesterol 32.4 HDL Cholesterol 38 L Heart Disease Risk Ratio 4.00 03/09/17 04:25 WBC RBC Hgb Hct MCV MCH MCHC RDW Plt Count MPV Neut % (Auto) Lymph % (Auto) Grimes % (Auto) Eos % (Auto) Baso % (Auto) Neut # (Auto) Lymph # (Auto) Grimes # (Auto) Eos # (Auto) Baso # (Auto) Total Counted Immature Gran % Nucleated RBC % Immature Gran # Segmented Neutrophils Band Neutrophils Lymphocytes Monocytes Nucleated RBCs # Platelet Estimate Giant Platelets Immature Plt Fraction Hypochromasia D-Dimer, Quantitative ABG pH 7.535 H ABG pCO2 36.4 ABG pO2 326.0 H ABG HCO3 31.6 H ABG Total CO2 27.7 H ABG O2 Saturation 99.8 ABG Base Excess 7.7 H FiO2 100.00 Sodium Potassium Chloride Carbon Dioxide Anion Gap BUN Creatinine GFR Calculation BUN/Creatinine Ratio Glucose Calculated Osmolality Calcium Magnesium B-Natriuretic Peptide Triglycerides Cholesterol LDL Cholesterol VLDL Cholesterol HDL Cholesterol Heart Disease Risk Ratio - EKG EKG results: interpreted by me EKG shows: atrial fibrillation <Danica Velazquez - Last Filed: 03/09/17 15:15> Cardiology - PN: Subj Interval history: I have personally interviewed and evaluated the patient, reviewed the chart and discussed medical decision-making with practitioner Yuri. I have read this note and agree with her documentation here in with the following clarifications and exceptions: Upon my exam the patient has an irregularly irregular heartbeat , and her bilateral lower extremity pulses are decreased but palpable. Clinically she appears to have an infectious pulmonary process responsible for her presentation. I do not really see much heart failure in terms of peripheral edema, and her BNP was only minimally elevated. I spoke at length with the patient and her last night, and again with the patient's this morning he was at the bedside during my exam. I also spoke at length last night with Dr. Leo regarding her condition. We will continue supportive care. Exam (Progress Note) - Constitutional Vitals: Period Temp Pulse Resp BP Sys/Puri Pulse Ox Last 24 Hr 96.7 F-97.9 F 70-101 12-31 74-189/38-91 82-100 Result/EKG - Labs CBC & BMP: 03/09/17 03:59 03/09/17 03:59 Labs: Laboratory Results - last 24 hr 03/08/17 03/08/17 03/08/17 17:52 18:36 21:00 WBC RBC Hgb Hct MCV MCH MCHC RDW Plt Count MPV Neut % (Auto) Lymph % (Auto) Grimes % (Auto) Eos % (Auto) Baso % (Auto) Neut # (Auto) Lymph # (Auto) Grimes # (Auto) Eos # (Auto) Baso # (Auto) Total Counted Immature Gran % Nucleated RBC % Immature Gran # Segmented Neutrophils Band Neutrophils Lymphocytes Monocytes Nucleated RBCs # Platelet Estimate Giant Platelets Immature Plt Fraction Hypochromasia D-Dimer, Quantitative 1.5 ABG pH 7.466 H 7.490 H ABG pCO2 47.2 42.8 ABG pO2 43.1 L 177.2 H ABG HCO3 32.3 H 31.9 H ABG Total CO2 30.6 H 33.2 H ABG O2 Saturation 78.4 L 98.9 ABG Base Excess 9.0 H 7.8 H FiO2 100.00 Sodium Potassium Chloride Carbon Dioxide Anion Gap BUN Creatinine GFR Calculation BUN/Creatinine Ratio Glucose POC Glucose Calculated Osmolality Calcium Magnesium B-Natriuretic Peptide Triglycerides Cholesterol LDL Cholesterol VLDL Cholesterol HDL Cholesterol Heart Disease Risk Ratio 03/09/17 03/09/17 03/09/17 03:59 03:59 03:59 WBC 9.0 D RBC 3.63 L Hgb 10.5 L Hct 32.5 L MCV 89.5 MCH 29 MCHC 32.3 RDW 14.7 Plt Count 191 MPV 10.8 Neut % (Auto) 86.0 H Lymph % (Auto) 7.6 L Grimes % (Auto) 5.4 Eos % (Auto) 0.0 Baso % (Auto) 0.1 Neut # (Auto) 7.8 H Lymph # (Auto) 0.7 L Grimes # (Auto) 0.5 Eos # (Auto) 0.0 Baso # (Auto) 0.0 Total Counted 100 Immature Gran % 0.9 Nucleated RBC % 0.0 Immature Gran # 0.08 Segmented Neutrophils 77 Band Neutrophils 12 H Lymphocytes 3 L Monocytes 8 Nucleated RBCs # 0.00 Platelet Estimate Adequate Giant Platelets Few Immature Plt Fraction 0.0 Hypochromasia 1+ D-Dimer, Quantitative ABG pH ABG pCO2 ABG pO2 ABG HCO3 ABG Total CO2 ABG O2 Saturation ABG Base Excess FiO2 Sodium 136 Potassium 2.9 L Chloride 93 L Carbon Dioxide 33 H Anion Gap 12.9 BUN 41 H Creatinine 1.40 H GFR Calculation 35 BUN/Creatinine Ratio 29.00 H Glucose 122 H POC Glucose Calculated Osmolality 282.0 Calcium 9.0 Magnesium 2.3 B-Natriuretic Peptide 360 H Triglycerides 162 H Cholesterol 152 LDL Cholesterol 81.0 VLDL Cholesterol 32.4 HDL Cholesterol 38 L Heart Disease Risk Ratio 4.00 03/09/17 03/09/17 04:25 11:18 WBC RBC Hgb Hct MCV MCH MCHC RDW Plt Count MPV Neut % (Auto) Lymph % (Auto) Grimes % (Auto) Eos % (Auto) Baso % (Auto) Neut # (Auto) Lymph # (Auto) Grimes # (Auto) Eos # (Auto) Baso # (Auto) Total Counted Immature Gran % Nucleated RBC % Immature Gran # Segmented Neutrophils Band Neutrophils Lymphocytes Monocytes Nucleated RBCs # Platelet Estimate Giant Platelets Immature Plt Fraction Hypochromasia D-Dimer, Quantitative ABG pH 7.535 H ABG pCO2 36.4 ABG pO2 326.0 H ABG HCO3 31.6 H ABG Total CO2 27.7 H ABG O2 Saturation 99.8 ABG Base Excess 7.7 H FiO2 100.00 Sodium Potassium Chloride Carbon Dioxide Anion Gap BUN Creatinine GFR Calculation BUN/Creatinine Ratio Glucose POC Glucose 126 H Calculated Osmolality Calcium Magnesium B-Natriuretic Peptide Triglycerides Cholesterol LDL Cholesterol VLDL Cholesterol HDL Cholesterol Heart Disease Risk Ratio
--- NOTE | 2017-03-09 08:41 | XRay Report ---
History is CHF short of breath Comparison 03/08/2017 The heart is mildly enlarged pacemaker present. ET tube tip is at T5 There remains [id number] diffuse bilateral pulmonary opacities with the mildly more focal hazy opacity in the right base. There is been mild improvement in the interval. Impression: Slight improvement with continued bilateral infiltrates and/or edema PROCEDURE INTERPRETED AT [facility] DEPARTMENT OF RADIOLOGY Final Report Signed by: Dr. Jennifer Lowry
[2017-03-09] MEDS ORDERED: FUROSEMIDE 40 MG/4 ML VIAL IV SCH (09:00)
--- NOTE | 2017-03-09 09:36 | Hospitalist Progress Note ---
Assessment and Plan - Time spent with patient Time spent with patient: Less than 30 minutes (1) COPD (chronic obstructive pulmonary disease) Status: Chronic Assessment and plan: 76-year-old white female with history of hypertension, CHF, COPD, tobacco abuse , A. fib on Xarelto, and Graves' disease admitted by the hospitalist service with acute CHF exacerbation. She will be admitted to telemetry, diuresed, labs and x-rays in the morning. We will go ahead and replace her mag and follow this as well. Dr. Leo we will see and examine patient and further recommendations to follow. 03/09/2017 patient developed progressive dyspnea despite aggressive measures yesterday and CT angiogram of the chest showed a lung infection. Patient was transferred to ICU and electively intubated to improve her oxygenation. Care was coordinated with Dr. Leo and Dr. Velazquez. Patient is lightly sedated and she is trying to nod her head. She is afebrile and her vital signs are stable. Her labs are relatively stable except potassium low at 2.9 and this is being replaced. Her creatinine is elevated at 1.4 and she has no urine output as of this morning. We will bolus her normal saline 500 mL one time and recheck after lunch to see if this improves. We will also stop her Lasix temporarily. Patient does have some skin tenting and her lungs are clear. With her heart failure we will have to monitor this closely. We will also go ahead and consult dietary to start tube feeds. Dr. Leo we will see and examine patient and further recommendations to follow. Current Visit: Yes (2) Acute exacerbation of CHF (congestive heart failure) Status: Acute Current Visit: Yes (3) Graves disease Status: Acute Current Visit: Yes (4) CAD (coronary artery disease) Status: Chronic Current Visit: No (5) PVD (peripheral vascular disease) Status: Chronic Current Visit: No (6) Hypertension Status: Chronic Current Visit: No (7) Dyslipidemia Status: Chronic Current Visit: No (8) Atrial fibrillation Status: Chronic Current Visit: No (9) Anemia Status: Acute Current Visit: Yes Hospitalist: Subjective Interval history: Patient is lightly sedated on the vent this morning but she will wake up partially. She did try to nod her head somewhat. Exam - Constitutional Vitals: Period Temp Pulse Resp BP Sys/Puri Pulse Ox Last 24 Hr 96.7 F-98.6 F 71-101 15-31 74-189/38-91 82-100 Exam: 76-year-old white female, lightly sedated on the ventilator Chest clear CV irregularly irregular Abdomen scaphoid, nontender Extremities no edema, skin with tenting Results - Labs CBC & BMP: 03/09/17 03:59 03/09/17 03:59 Lab Results: I have reviewed the past 24 hour labs - Diagnostic Findings Procedure: Chest x-ray: report reviewed by me (Chest x-ray shows slight improvement with continued bilateral infiltrates and/or edema)
[2017-03-09] MEDS: POTASSIUM CHLORIDE RIDER 10 MEQ in PREMIX 1 EACH IV PRN ×6 (09:46→23:51)
[2017-03-09] MEDS ORDERED: SODIUM CHLORIDE 0.9% 500 ML IV ONE ×2 (09:46→15:00)
[2017-03-09] MEDS: NEBIVOLOL 10 MG TABLET PO SCH ×2 (09:48→20:27)
[2017-03-09] MEDS: ASPIRIN EC 81 MG TABLET PO SCH (09:48)
[2017-03-09] MEDS: LOSARTAN 50 MG TABLET PO SCH (09:48)
[2017-03-09] MEDS: amLODIPine 5 MG TABLET PO SCH (09:48)
[2017-03-09] MEDS: PANTOPRAZOLE 40 MG TABLET PO SCH (09:48)
[2017-03-09] MEDS ORDERED: SODIUM CHLORIDE 0.9% 1,000 ML IV SCH (10:00)
[2017-03-09] MEDS: DILTIAZEM CD 120 MG CAPSULE PO SCH (10:00)
[2017-03-09] MEDS ORDERED: MAGNESIUM SULF RIDER 50 ML IV ONE (10:30)
[2017-03-09] MEDS ORDERED: DEXTROSE 50% 25 GM/50 ML SYRINGE IV PRN (11:11)
[2017-03-09] MEDS ORDERED: GLUCAGON 1 MG VIAL IM PRN (11:11)
[2017-03-09] MEDS: methylPREDNISolone SOD SUC 40 MG/1 ML VIAL IV SCH ×2 (12:48→23:52)
[2017-03-09] MEDS: ESCITALOPRAM 10 MG TABLET PO SCH (12:51)
[2017-03-09] MEDS: DILTIAZEM 30 MG TABLET PO SCH ×3 (12:51→20:28)
[2017-03-09] MEDS: cycloSPORINE OPH EMUL 1 VIAL BOTH EYES SCH ×2 (12:52→20:27)
[2017-03-09] MEDS: INSULIN LISPRO 100 UNIT/ML SUBCUT SCH ×3 (12:54→23:52)
--- NOTE | 2017-03-09 14:30 | Pulmonology Consult Note ---
History of Present Illness Chief complaint: Ventilator management. Hypoxia. History of present illness: Rajesh Longo, [facility], acting as scribe for Dr. Rivas Steel Ms. Iverson is a 76-year-old white female who we have been asked to see in pulmonary consultation for evaluation and treatment. The request for consultation but was made by Dr. Leo. Her primary care physician is Dr. Nithya Coles. She is followed from a cardiology standpoint by Dr. Velazquez. Per her ER records, Dr. 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 This patient was admitted 03/07/2017 through the emergency room after presenting with complaints of increased shortness of breath, productive cough with white sputum, and wheezing. On evaluation she was felt to have an acute exacerbation of diastolic congestive heart failure. She was admitted to telemetry. She has been seen in cardiology consultation by Dr. Velazquez and was initially improving. However, on the evening of 03/08/2017 the patient developed progressive dyspnea. CT the chest with PE protocol showed no PE but there was multi lobar patchy areas of alveolar consolidation with a somewhat basilar and posterior predominance. Because of the progressive nature of her symptoms, the patient was transferred to intensive care and electively intubated to improve her oxygenation and preserve her airway. We have been asked to see the patient in pulmonary consultation for evaluation and treatment as well as ventilator management. The patient was seen today along with her nurse. She is sedated and on mechanical ventilation, therefore, her review of systems and history is taken from her nurse and her electronic medical record. As stated before, she has had progressively worsening shortness of breath and dyspnea on exertion. There was no reported cardiac angina or palpitations. No reported dysphasia or reflux. No TIA symptoms or syncope. No bleeding from any site. No change in bowel or bladder habits. All other systems were reviewed and were negative. Allergies: TONY inhibitors, propranolol, ranolazine Home medications: See list Past medical history: Positive for atrial fibrillation (on Xarelto), coronary artery disease, hypertension, cardiac pacemaker, history of CVA, glaucoma, COPD , gastroesophageal reflux disease, history of congestive heart failure, Graves' disease, tobacco abuse and depression. Note, the patient has high oxygen. She stated in the ER that she uses this 24 hours a day. Surgical history: Positive for cardiac catheterization, carotid endarterectomy, appendectomy, and hysterectomy Family history: Positive for an unknown type of cancer in her mother and father , diabetes in her son and daughter, and hypertension. Social history: She is a present smoker. She does not use alcohol. She is denies the use of illicit drugs. She is . Chest x-ray. Done 03/09/2017. Heart size is top normal. There are increased markings scattered throughout but primarily at the bases concerning for aspiration but there could also be an element of heart failure. Pacemaker device is in place. I see no fractured wires. CT of the chest on 03/08/2017. No evidence of PE. Multi lobar patchy areas of alveolar consolidation are present with a somewhat basilar and posterior predominance. Differential is multi lobar pneumonia, arts, or neoplasm. Left lower lobe pulmonary cyst, 28 mm diameter. Borderline cardiomegaly. Extensive calcified atheromatous disease. Pacemaker device. Mediastinal lymphadenopathy. Echocardiogram. Done 03/08/2017. Read by Dr. Velazquez. Normal LV systolic and diastolic function with an ejection fraction estimated at 55-60%. Mild left atrial enlargement. Mild mitral regurgitation. Mild to moderate aortic stenosis with mild aortic regurgitation. Mild tricuspid regurgitation. Pulmonary artery pressures estimated at 40 mmHg plus the right atrial pressure. Laboratory: White count 9000 with 86.0% segs, 7.6% lymphs, 5.4% monos; H&H 10.5/ 32.5 with normal indices and normal red blood cell distribution with; platelet count 191,000; creatinine 1.40, BUN 41, sodium 136, potassium 2.9 (hypokalemia) magnesium 2.3; calcium 9.0, albumin 3.4, total protein 6.7; liver function tests within normal limits; troponin less than 0.015; BNP has fallen to 360 from a high of 761; fasting lipoprotein profile shows total cholesterol of 152, LDL 81, HDL 38, triglycerides 162 ABGs this morning on an FiO2 of 100% on mechanical ventilation she has a pH of 7.535, PCO2 36.4, PO2 326.0, bicarb 31.6, oxygen saturation 99.8% Home Medications Medication Instructions Recorded Confirmed Type Aspirin EC Tab 81 mg PO QAM 08/18/15 03/07/17 History Dabigatran [Pradaxa] 150 mg PO BID 08/18/15 03/07/17 History Furosemide 20 mg PO BID 08/18/15 03/07/17 History Latanoprost 0.005% Oph Soln 1 drop BOTH EYES BEDTIME 08/18/15 03/07/17 History [Xalatan 0.005% Oph Soln] cycloSPORINE OPH EMUL [Restasis] 1 drop BOTH EYES Q12HR 08/18/15 03/07/17 History dilTIAZem HCl [Diltiazem ER (24 120 mg PO QAM 08/18/15 03/07/17 History hr)] Escitalopram [Lexapro] 10 mg PO QAM 09/22/16 03/07/17 History Umeclidinium Brm/Vilanterol Tr 1 puff INH QAM 09/22/16 03/07/17 History [Anoro Ellipta] Amlodipine Besylate [Amlodipine 10 mg PO QAM 03/07/17 03/07/17 History Besylate] Levothyroxine Tab [Synthroid Tab] 75 mcg PO DAILY@0700 03/07/17 03/07/17 History Losartan Potassium [Losartan 50 mg PO QAM 03/07/17 03/07/17 History Potassium] Nebivolol [Bystolic] 10 mg PO BID 03/07/17 03/07/17 History Omeprazole Magnesium [Prilosec Otc] 20 mg PO BID PRN 03/07/17 03/07/17 History Allergies Allergy/AdvReac Type Severity Reaction Status Date / Time TONY Inhibitors Allergy Verified 08/18/15 07:09 propranolol [From Inderal LA] Allergy Verified 08/18/15 07:09 ranolazine [From Ranexa] Allergy Verified 08/18/15 07:09 Exam (Pulmonay) H&P - Constitutional Vitals: Period Temp Pulse Resp BP Sys/Puri Pulse Ox Last 24 Hr 96.7 F-97.9 F 70-101 12-31 74-189/38-91 82-100 Exam: Psych: Unable to be determined secondary to sedation and mechanical ventilation HEENT: [Pupils, irises, sclera, conjunctiva, and eyelids are normal. The face is symmetrical without rash or masses. Lips and tongue appear normal. ET tube in place. Neck: Symmetrical. Thyroid was not palpated. Lymphatics: No submandibular, cervical, or supraclavicular adenopathy Chest: [Symmetrical with bilateral rhonchi Breasts: Deferred CV: Irregularly irregular Arterial: Carotids with decreased upstroke. There is no bruit. Upper extremity pulses are palpable. Lower extremity pulses are non-palpable, but I see no evidence of ischemia. Venous: Exam of the neck, upper, and lower extremities is normal Abd: No appreciable organomegaly, masses, tenderness, or bruit; Bowel sounds are hypoactive 4; The aorta was not palpated /Rectal: Deferred Extremities: No clubbing, cyanosis, edema, or obvious DVT Skin: No cancerous or infectious lesions of the exposed, examined skin; the perineal area was not examined M/S: Age appropriate loss of the normal curvature of the cervical, thoracic, and lumbar spine Neurological: Unable to be fully determined secondary to sedation and mechanical ventilation The remainder of the exam was noncontributory. Impression: #1: Acute respiratory failure requiring intubation and mechanical ventilation #2: Probable aspiration. Nursing staff is suctioning thick tenacious secretions from ET tube. #3: Acute congestive heart failure. #4: Graves' disease #5: Coronary artery disease #6: Peripheral vascular disease #7: Hypertension #8: Dyslipidemia #9: Atrial fibrillation #10: Anemia #11: Azotemia #12: See past history Plan: #1: We will proceed with fiberoptic bronchoscopy today #2: Ventilator weaning protocol #3: Physical therapy protocol #4: Decrease FiO2 to 50% #5: Daily chest x-ray and ABGs while on the ventilator #6: Agree with present antibiotics to cover for possible pneumonia #7: See orders We appreciate this consult and will follow along with you. Medical,Surgical,& Family Hx - Medical History Cardio: History of: Cardiac Dysrhythmia (a fib), CAD, Hypertension, Pacemaker Neurology: History of: Cerebrovascular Accident No history of: Seizures HEENT: History of: Eye Problem, Glaucoma Endocrine: History of: Thyroid Disorder (had radiation GRAVES DIS) Respiratory: History of: COPD Genitourinary: History of: Bladder Problem Gastrointestinal: History of: GERD Musculoskeletal: History of: Back/Neck Problems (diskectomy L4-L5) - Surgical History Cardiac Surgeries: Sugical HX of: Cardiac Catheterization (stents x 2), Carotid Endarterectomy HEENT Surgeries: Surgical HX of: Carotid Endarterectomy Abdominal Surgeries: Surgical HX of: Abdominal Surgery, Appendectomy Reproductive Surgeries: Surgical HX of;: Hysterectomy - Family History Family History: Reports;: Family Cancer (father, mother), Family Diabetes ( daughter son), Family Hypertension Denies;: Family Heart Disease, Family Psychiatric Problems, Family Stroke - Social History Smoking Status: Current every day smoker Frequency of Alcohol Use: None Type of Drug Use: None Results - Labs CBC & BMP: 03/09/17 03:59 03/09/17 03:59
--- NOTE | 2017-03-09 16:14 | Event Note ---
In-hospital diagnostic and therapeutic fiberoptic bronchoscopy. Bilateral bronchoalveolar lavages were sent for cytology, Gram stain, bacterial cultures, AFB stains and culture, fungal stains and culture. This patient has had pulmonary edema. She had an arrest on 03/08/2017 and required intubation mechanical ventilation. CT of the chest showed no pulmonary emboli. There were posterior infiltrates bilaterally. Over suction from in G-tube at the appearance of gastric content. For these reasons this patient was evaluated with fiberoptic bronchoscopy. The endotracheal tube was in good position. The distal trachea was normal and the cathleen was sharp Right mainstem bronchus showed erythema slight edema and marked friability with cobblestone pattern characteristic of gastric acid injury. This spared the right upper lung and right middle lung. There was erythema and edema and friability of the right lower lobe bronchi. These areas were lavaged until clear. The orifice of the left mainstem bronchus was erythematous and friable and had the appearance of aspiration injury. There were secretions in the left upper lung which were removed. There were fairly copious secretions in the left lower lung. These were removed with bronchoalveolar lavage. There was mild erythema and friability of the subsegments of the left lower lung. Specimens in the collection apparatus showed tannish discoloration consistent with gastric material. This patient has underlying COPD and there were multiple small yellow bronchial casts. The specimens were sent for the studies noted above. The patient tolerated the procedure well. Impression. #1 COPD #2 congestive heart failure #3 acute respiratory failure requiring intubation mechanical ventilation #4 acute aspiration with endobronchial injury #5. See above Plan. #1 check bronchoscopy specimens #2 follow-up chest x-ray #3 coverage with low-dose steroids and antibiotics
[2017-03-09] MEDS: cefTRIAXone 1,000 MG in SODIUM CHLORIDE 0.9% 100 ML IV SCH (20:26)
[2017-03-09] MEDS: LEVOFLOXACIN INJ 500 MG in PREMIX 1 EACH IV SCH (20:27)
[2017-03-09] MEDS: MIDAZOLAM 100 MG in SODIUM CHLORIDE 0.9% 80 ML IV SCH (20:49)
[2017-03-10] MEDS: POTASSIUM CHLORIDE RIDER 10 MEQ in PREMIX 1 EACH IV PRN ×3 (01:07→23:17)
[2017-03-10] MEDS: ALBUTEROL/IPRATROPIUM 3 ML NEB RESP TX SCH ×4 (02:42→20:41)
[2017-03-10 03:37] LABS: Allen Test Positive; Pt O2 Delivery Device Ventilator
[2017-03-10 03:40] LABS: ABG Base Excess 4.5 MMOL/L (-2.5-2.5); ABG HCO3 28.5 MMOL/L (20-26); ABG PCO2 40.7 MM HG (35-48); ABG PH 7.457 (7.35-7.45)
[2017-03-10 04:56] LABS: Basophils % 0.1 % (0.0-0.8); Hematocrit 30.5 VOL% (35.7-47.0); Immature Granulocytes % 0.3 %; Immature Granulocytes Absolute 0.02 #; Lymphocytes # 0.4 10*3/uL (1.4-4.0); Lymphocytes % 5.9 % (21.3-54.2); Mean Corpuscular HGB Conc 32.8 GM/DL (32-36); Mean Corpuscular Hemoglobin 29 PG (27-34); Mean Corpuscular Volume 89.2 FL (87-102); Mean Platelet Volume 10.8 FL (9.6-12.0); Monocytes # 0.3 10*3/uL (0.11-0.8); Neutrophils % 89.7 % (38.7-73.9); Platelet Count 193 T/CUMM (130-400); Red Blood Count 3.42 MC/CUMM (3.8-5.5); Red Cell Distribution Width 14.6 % (9.3-17.3); White Blood Count 6.7 T/CUMM (4-12)
[2017-03-10 05:38] LABS: Calcium 9.2 MG/DL (8.5-10.1); Magnesium 2.8 MG/DL (1.8-2.4); Osmolality,Calculated 287.8 MOS/KG (273-304); Potassium 3.7 MMOL/L (3.5-5.1)
[2017-03-10] MEDS: INSULIN LISPRO 100 UNIT/ML SUBCUT SCH ×4 (06:17→23:17)
[2017-03-10] MEDS: LEVOTHYROXINE 75 MCG TABLET PO SCH (06:38)
--- NOTE | 2017-03-10 07:47 | XRay Report ---
Exam: XR chest 1V portable Date: 03/10/2017 4:00 AM Indication: Follow-up ventilator Comparison: 03/09/2017 Technical AP Findings: Endotracheal tube is at the level of the aortic knob. Nasogastric tube and left-sided cardiac pacing device are present. Surgical changes of the left neck. Mild cardiac enlargement. Low volume effusions and atelectatic change present bilaterally. Small infiltrate in the right base is questioned Mediastinum is otherwise intact. Small metallic density in the right upper abdomen unchanged Impression: 1. Cardiomegaly with low volume effusions 2. Stable position of life-support tubing 3. Stable cardiac pacing device and previous surgery left neck 4. Mild COPD with hyperinflation. Small interstitial infiltrate the right base cannot be excluded PROCEDURE INTERPRETED AT [facility] DEPARTMENT OF RADIOLOGY Final Report Signed by: Dr. Rivas Cameron
--- NOTE | 2017-03-10 07:54 | Pulmonology Progress Note ---
Pulmonary - PN: Subj Interval history: This 76-year-old lady came in with increased shortness of breath. She has a history of COPD and mild to moderate aortic stenosis. She apparently had respiratory distress after going for a CT scan and had to be intubated. She has had evidence of congestive heart failure with a BNP of 360. Dr. Steel felt like she had aspirated as well as he saw some gastric contents in the right lung. Patient is on antibiotics and steroids and mechanical ventilation. We will commence weaning trials. Exam (Progress Note) - Constitutional Vitals: Period Temp Pulse Resp BP Sys/Puri Pulse Ox Last 24 Hr 96.9 F-97.9 F 64-92 12-28 86-148/42-82 96-100 Exam: Patient is responsive vital signs are normal. Pupils react to light. Orotracheal tube in place. Neck is supple. Chest sounds essentially clear. A few rhonchi over the right lung posteriorly. Heart normal rate rhythm no murmurs. Abdomen soft no masses. Extremities no clubbing cyanosis or edema. Calves nontender Results - Labs CBC & BMP: 03/10/17 04:37 03/10/17 04:37 Lab Results: I have reviewed the past 24 hour labs - Diagnostic Findings Procedure: Chest x-ray: image reviewed by me (ET tube good position. She has atelectatic infiltrate at the left base that was not present on her right mid exam of 03/07/2017. Also hazy infiltrate over the right lung. This is consistent with a bronchopneumonia.) Assessment and Plan (1) Aspiration pneumonia Status: Acute Assessment and plan: Placed on radial graphic appearance today and endobronchial appearance noted by Dr. Goldstein yesterday, it does appear that she has bilateral lower lobe aspiration pneumonia. She is on Rocephin and Levaquin. I will change the Rocephin to Zosyn so we will get some anaerobic coverage. Starting weaning trials in fact already have started. Making progress with that. We will check a couple days probably. Current Visit: Yes (2) COPD (chronic obstructive pulmonary disease) Status: Chronic Assessment and plan: Patient is reported to have COPD. I do hear a few rhonchi. She is on steroids and bronchodilators as well as antibiotics. Current Visit: Yes (3) Acute exacerbation of CHF (congestive heart failure) Status: Acute Assessment and plan: Fairly normal LV ejection fraction. Mild aortic stenosis. Watch fluids. Current Visit: Yes
--- NOTE | 2017-03-10 08:05 | Cardiology Progress Note ---
Assessment and Plan (1) CAD (coronary artery disease) Status: Chronic Current Visit: No (2) PVD (peripheral vascular disease) Status: Chronic Current Visit: No (3) Hypertension Status: Chronic Current Visit: No (4) Dyslipidemia Status: Chronic Current Visit: No (5) Atrial fibrillation Status: Chronic Current Visit: No (6) COPD (chronic obstructive pulmonary disease) Status: Chronic Current Visit: Yes (7) Aspiration pneumonia Status: Acute Current Visit: Yes Cardiology - PN: Subj Interval history: Motion Picture Set Up Worker: Dr. Velazquez PCP: Dr. Coles SUMMARY: Ms. Iverson is a 76 year old female who presented to the emergency room on 03/07/17 with complaints of sudden onset dyspnea and hypoxemia. She has a history of coronary artery disease requiring PCI in the past, atrial fibrillation, s/p permanent pacemaker implantation, paroxysmal SVT , COPD, and tobacco abuse. Her systolic function has been normal, she is not in an uncontrolled rhythm, and she is does not have a recent history of severe valvular heart disease. Her clinical presentation is very worrisome for more of a pulmonary process. Her last heart catheterization on 09/22/16 revealed patent stent to the obtuse marginal artery, mild to moderate residual coronary artery disease, mild to moderate aortic insufficiency, ejection fraction greater than 70%, moderate to severe atherosclerotic vascular disease with bilateral iliac hazy stenosis, and left superficial femoral artery stenosis. Ms. Iverson's was recently hospitalized in [place] for TAVR and they have just returned 2 days ago. She was not necessarily taking her medications as prescribed during that time, and she was consuming higher than usual salt content. MARCH 09, 2017 UPDATE: Yesterday evening, Ms. Iverson developed progressive dyspnea and was subsequently intubated in CCU to improve her oxygenation. This morning, she is resting comfortably on the ventilator. Pulmonology has been consulted. She has diuresed over 3L since admission but has had no recent urine output. Her Lasix is being stopped and she will receive a NS bolus. Her creatinine also jumped from 0.5 to 1.[address] yesterday suggested lung infection . Although her WBC is normal today, yesterday, it was elevated with a left shift. She has been started on IV antibiotics. Echo yesterday revealed normal systolic and diastolic function. Her vital signs have been stable with a couple of hypotensive readings through the night. We will continue to monitor. March 10, 2017 update: She continues to be hemodynamically stable and is making progress on the vent. The chart is reviewed, no events overnight. I personally discussed this case with Drs. Steel and Ahmet. ASSESSMENT/PLAN: 1. DYSPNEA - Ms. Iverson had an initial presentation suspicious for CHF with chest x-ray showing interstitial edema and mildly elevated BNP ( disproportionate to her presentation and symptoms). After diuresis of over 3L, she continued to have significant dyspnea and hypoxia. Her echocardiogram revealed normal LV systolic and diastolic function, mild LA enlargement, mild MR , mild AI, mild TR. We obtained a CT chest yesterday evening which revealed no evidence of PE, left lower lobe pulmonary cyst 28mm in diameter, mediastinal lymphadenopathy, and multilobar patchy areas of alveolar consolidation suggestive of multilobar pneumonia, ARDS, or neoplasm. She has been intubated, and is being treated for pneumonia. Clinically she seems stable or improving. 2. COPD - Hospital medicine is following. She is now intubated and on mechanical ventilation. 3. CORONARY ARTERY DISEASE - Her last heart catheterization on 09/22/16 revealed patent stent to the obtuse marginal artery, mild to moderate residual coronary artery disease, mild to moderate aortic insufficiency, ejection fraction greater than 70%, moderate to severe atherosclerotic valvular disease with bilateral iliac hazy stenosis and left superficial femoral artery stenosis. She is clinically stable. 4. PERIPHERAL VASCULAR DISEASE - DEIDRE's on 10/03/16 revealed mild to moderate right and left peripheral vascular disease. Disease was noted on prior cardiac catheterization. 5. HYPERTENSION - Currently well controlled. 6. DYSLIPIDEMIA - Lipid panel revealed triglycerides 162, cholesterol 152, LDL 81, and HDL 38. 7. ATRIAL FIBRILLATION - Currently in atrial fibrillation. She is chronically anticoagulated with Pradaxa. H&H mildly diminished but stable at 10.5 and 32.5. 8. S/P PACEMAKER IMPLANTATION - Patient has a [employer] device which was last interrogated on 02/26/17 and found to be functioning appropriately with 55% OFFICE ANALYST. 9. Pneumonia-she is on antibiotics and being followed by pulmonology. Exam (Progress Note) - Constitutional Vitals: Period Temp Pulse Resp BP Sys/Puri Pulse Ox Last 24 Hr 96.9 F-97.9 F 64-92 12-28 86-148/42-82 96-100 Exam: General appearance: normal weight, no acute distress, intubated, not spontaneously arousable during the exam, although will respond to stimulation. - Head Head exam: Present: normocephalic, atraumatic,. Absent: hematoma, laceration - Eye Eye exam: Present: Chronic proptosis. Absent: conjunctival injection, nystagmus , periorbital swelling, scleral icterus, laceration to eyelids Pupils: Present: NICKI. Absent: constricted, dilated, fixed, irregular, unequal - ENT ENT exam: Present: normal exam, normal external ear exam - Neck Neck exam: Present: normal inspection. Absent: lymphadenopathy, meningismus, tenderness, thyromegaly - Respiratory Respiratory exam: Present: clear to auscultation bilaterally anteriorly, there is normal rise with ventilated breaths. Absent: accessory muscle use, chest wall tenderness - Cardiovascular Cardiovascular exam: Present: Irregularly irregular rate and rhythm. Absent: carotid bruit, gallop, JVD, rubs - GI/Abdominal GI/Abdominal exam: Present: normal bowel sounds. Absent: distended, firm, guarding, hernia, mass, tenderness, rebound, soft - Extremities Exam Extremities exam: Present: decreased pulses bilateral extremities. Absent: calf tenderness, edema - Back Exam Back exam: Unable to assess due to patient being on the ventilator - Neurological Exam Neurological exam: Unable to fully assess due to patient being on the ventilator. She does appear to move all 4 extremities. - Psychiatric Psychiatric exam: Unable to assess due to patient being on the ventilator. - Skin Skin exam: Present: normal color, warm, dry, intact. Absent: cyanosis, diaphoretic, rash, urticaria Result/EKG - Labs CBC & BMP: 03/10/17 04:37 03/10/17 04:37 Lab Results: I have reviewed the past 24 hour labs Labs: Laboratory Results - last 24 hr 03/09/17 03/09/17 03/09/17 11:18 16:54 18:13 WBC RBC Hgb Hct MCV MCH MCHC RDW Plt Count MPV Neut % (Auto) Lymph % (Auto) Clarke % (Auto) Eos % (Auto) Baso % (Auto) Neut # (Auto) Lymph # (Auto) Clarke # (Auto) Eos # (Auto) Baso # (Auto) Immature Gran % Nucleated RBC % Immature Gran # Nucleated RBCs # Immature Plt Fraction ABG pH ABG pCO2 ABG pO2 ABG HCO3 ABG Total CO2 ABG O2 Saturation ABG Base Excess FiO2 Sodium Potassium 3.8 Chloride Carbon Dioxide Anion Gap BUN Creatinine GFR Calculation BUN/Creatinine Ratio Glucose POC Glucose 126 H 144 H Calculated Osmolality Calcium Magnesium 03/09/17 03/10/17 03/10/17 23:27 03:04 04:37 WBC 6.7 RBC 3.42 L Hgb 10.0 L Hct 30.5 L MCV 89.2 MCH 29 MCHC 32.8 RDW 14.6 Plt Count 193 MPV 10.8 Neut % (Auto) 89.7 H Lymph % (Auto) 5.9 L Clarke % (Auto) 4.0 Eos % (Auto) 0.0 Baso % (Auto) 0.1 Neut # (Auto) 6.0 Lymph # (Auto) 0.4 L Clarke # (Auto) 0.3 Eos # (Auto) 0.0 Baso # (Auto) 0.0 Immature Gran % 0.3 Nucleated RBC % 0.0 Immature Gran # 0.02 Nucleated RBCs # 0.00 Immature Plt Fraction 0.0 ABG pH 7.457 H ABG pCO2 40.7 ABG pO2 112.0 H ABG HCO3 28.5 H ABG Total CO2 26.0 ABG O2 Saturation 98.0 ABG Base Excess 4.5 H FiO2 50.00 Sodium Potassium Chloride Carbon Dioxide Anion Gap BUN Creatinine GFR Calculation BUN/Creatinine Ratio Glucose POC Glucose 173 H Calculated Osmolality Calcium Magnesium 03/10/17 03/10/17 04:37 06:03 WBC RBC Hgb Hct MCV MCH MCHC RDW Plt Count MPV Neut % (Auto) Lymph % (Auto) Clarke % (Auto) Eos % (Auto) Baso % (Auto) Neut # (Auto) Lymph # (Auto) Clarke # (Auto) Eos # (Auto) Baso # (Auto) Immature Gran % Nucleated RBC % Immature Gran # Nucleated RBCs # Immature Plt Fraction ABG pH ABG pCO2 ABG pO2 ABG HCO3 ABG Total CO2 ABG O2 Saturation ABG Base Excess FiO2 Sodium 137 Potassium 3.7 Chloride 99 Carbon Dioxide 27 Anion Gap 14.7 BUN 45 H Creatinine 1.00 GFR Calculation 52 BUN/Creatinine Ratio 45.00 H Glucose 146 H POC Glucose 178 H Calculated Osmolality 287.8 Calcium 9.2 Magnesium 2.8 H - Diagnostic Findings Procedure: Chest x-ray: report reviewed by me
[2017-03-10] MEDS: NEBIVOLOL 10 MG TABLET PO SCH ×2 (09:49→20:28)
[2017-03-10] MEDS: ESCITALOPRAM 10 MG TABLET PO SCH (09:49)
[2017-03-10] MEDS: LOSARTAN 50 MG TABLET PO SCH (09:49)
[2017-03-10] MEDS: cycloSPORINE OPH EMUL 1 VIAL BOTH EYES SCH ×2 (09:49→20:29)
[2017-03-10] MEDS: DILTIAZEM 30 MG TABLET PO SCH ×4 (09:49→20:28)
[2017-03-10] MEDS: ASPIRIN EC 81 MG TABLET PO SCH (09:49)
[2017-03-10] MEDS: amLODIPine 5 MG TABLET PO SCH (09:49)
[2017-03-10] MEDS: PANTOPRAZOLE 40 MG TABLET PO SCH (09:49)
[2017-03-10] MEDS: PIPERACILLIN/TAZOBACTAM 3,375 MG in SODIUM CHLORIDE 0.9% 100 ML IV SCH ×3 (09:50→23:17)
[2017-03-10] MEDS: methylPREDNISolone SOD SUC 40 MG/1 ML VIAL IV SCH ×2 (13:36→23:17)
[2017-03-10] MEDS: ENOXAPARIN 60 MG/0.6 ML SYRINGE SUBCUT SCH ×2 (13:39→23:17)
--- NOTE | 2017-03-10 15:26 | Hospitalist Progress Note ---
Assessment and Plan (1) Aspiration pneumonia Status: Acute Assessment and plan: The patient is intubated due to respiratory failure on account of aspiration pneumonia. We will continue efforts for weaning slowly and continue present IV antibiotic care. I coordinated care with Dr. Goldstein today. Current Visit: Yes (2) CAD (coronary artery disease) Status: Chronic Current Visit: No (3) PVD (peripheral vascular disease) Status: Chronic Current Visit: No Hospitalist: Subjective Interval history: The patient is resting quietly in her room. She continues on mechanical ventilation via oral endotracheal tube. The patient is tolerating CPAP trials on a limited basis today. The patient has no outward expressions of pain. I coordinate care with Dr. Velazquez today. Exam - Constitutional Vitals: Period Temp Pulse Resp BP Sys/Puri Pulse Ox Last 24 Hr 96.9 F-97.9 F 64-112 12-28 86-148/42-82 96-100 General appearance: no acute distress - Respiratory Respiratory exam: Present: clear to auscultation bilaterally, prolonged expiratory phase - Cardiovascular Cardiovascular exam: Present: irregular rhythm - GI/Abdominal GI/Abdominal exam: Present: normal bowel sounds Results - Labs CBC & BMP: 03/10/17 04:37 03/10/17 04:37 Lab Results: I have reviewed the past 24 hour labs
[2017-03-10] MEDS: LATANOPROST 0.005% OPH SOLN 2.5 ML BOTTLE BOTH EYES SCH (20:28)
[2017-03-10] MEDS: LEVOFLOXACIN INJ 500 MG in PREMIX 1 EACH IV SCH (20:28)
[2017-03-11] MEDS: ALBUTEROL/IPRATROPIUM 3 ML NEB RESP TX SCH ×4 (01:28→19:17)
[2017-03-11] MEDS: POTASSIUM CHLORIDE RIDER 10 MEQ in PREMIX 1 EACH IV PRN (02:15)
[2017-03-11 03:52] LABS: Allen Test Positive; Pt O2 Delivery Device Ventilator
[2017-03-11 03:57] LABS: ABG Base Excess 4.1 MMOL/L (-2.5-2.5); ABG HCO3 28.1 MMOL/L (20-26); ABG Oxygen Saturation 98.5 % (95-100); ABG PCO2 40.9 MM HG (35-48); ABG PH 7.449 (7.35-7.45); ABG TCO2 25.9 MMOL/L (23-27)
[2017-03-11 04:52] LABS: Basophils % 0.1 % (0.0-0.8); Hematocrit 30.9 VOL% (35.7-47.0); Hemoglobin 9.8 GM/DL (12.0-16.0); Immature Granulocytes % 0.5 %; Immature Granulocytes Absolute 0.04 #; Lymphocytes # 0.5 10*3/uL (1.4-4.0); Mean Corpuscular HGB Conc 31.7 GM/DL (32-36); Mean Corpuscular Hemoglobin 29 PG (27-34); Mean Corpuscular Volume 91.4 FL (87-102); Mean Platelet Volume 10.5 FL (9.6-12.0); Monocytes # 0.4 10*3/uL (0.11-0.8); Monocytes % 5.2 % (1.7-12.7); Neutrophils # 6.8 10*3/uL (1.4-7.4); Neutrophils % 88.2 % (38.7-73.9); Platelet Count 201 T/CUMM (130-400); Red Blood Count 3.38 MC/CUMM (3.8-5.5); White Blood Count 7.7 T/CUMM (4-12)
[2017-03-11 06:05] LABS: Calcium 8.8 MG/DL (8.5-10.1); Magnesium 2.8 MG/DL (1.8-2.4); Osmolality,Calculated 289.5 MOS/KG (273-304); Potassium 4.3 MMOL/L (3.5-5.1)
[2017-03-11] MEDS: INSULIN LISPRO 100 UNIT/ML SUBCUT SCH ×4 (06:35→23:41)
[2017-03-11] MEDS: LEVOTHYROXINE 75 MCG TABLET PO SCH (06:35)
[2017-03-11 07:34] LABS: Band Neutrophils 1 % (0-10); Lymphocytes 7 % (20-55); Segmented Neutrophils 88 % (50-85); Total Cells Counted 100
[2017-03-11 07:35] LABS: Hypochromasia Slight; Microcytosis 2+; Platelet Estimate Adequate
--- NOTE | 2017-03-11 08:42 | Pulmonology Progress Note ---
Pulmonary - PN: Subj Interval history: This 76-year-old lady came in with increased shortness of breath. She has a history of COPD and mild to moderate aortic stenosis. She apparently had respiratory distress after going for a CT scan and had to be intubated. She has had evidence of congestive heart failure with a BNP of 360. Dr. Steel felt like she had aspirated as well as he saw some gastric contents in the right lung. Patient is on antibiotics and steroids and mechanical ventilation. We will commence weaning trials. 03/11/2017 patient is progressing with CPAP. Has some atelectatic infiltrate at the left base and probably a small effusion there. Continuing antibiotics. Cultures negative from bronchial alveolar lavage Exam (Progress Note) - Constitutional Vitals: Period Temp Pulse Resp BP Sys/Puri Pulse Ox Last 24 Hr 96.4 F-97.6 F 58-112 12-24 110-148/48-70 96-100 Exam: Patient is responsive vital signs are normal. Pupils react to light. Orotracheal tube in place. Neck is supple. Chest sounds essentially clear. A few rhonchi over the right lung posteriorly. Heart normal rate rhythm no murmurs. Abdomen soft no masses. Extremities no clubbing cyanosis or edema. Calves nontender Results - Labs CBC & BMP: 03/11/17 04:36 03/11/17 04:36 Lab Results: I have reviewed the past 24 hour labs - Diagnostic Findings Procedure: Chest x-ray: image reviewed by me (Some left basilar atelectatic infiltrate.) Assessment and Plan (1) Aspiration pneumonia Status: Acute Assessment and plan: Placed on radial graphic appearance today and endobronchial appearance noted by Dr. Steel yesterday, it does appear that she has bilateral lower lobe aspiration pneumonia. She is on Rocephin and Levaquin. I will change the Rocephin to Zosyn so we will get some anaerobic coverage. Starting weaning trials in fact already have started. Making progress with that. We will take a couple days probably. 03/11/2017 on empiric antibiotics for probable aspiration pneumonia. Cultures have been negative. Current Visit: Yes (2) COPD (chronic obstructive pulmonary disease) Status: Chronic Assessment and plan: Patient is reported to have COPD. I do hear a few rhonchi. She is on steroids and bronchodilators as well as antibiotics. 03/11/2017 no active bronchospasm. Current Visit: Yes (3) Acute exacerbation of CHF (congestive heart failure) Status: Acute Assessment and plan: Fairly normal LV ejection fraction. Mild aortic stenosis. Watch fluids. 03/11/2017 x-ray does not look like heart failure. Current Visit: Yes
--- NOTE | 2017-03-11 09:07 | XRay Report ---
Exam: XR chest 1V portable Date: 03/11/2017 4:00 AM Indication: Follow-up ventilator Comparison: 03/10/2017 Technical: AP Findings: Endotracheal tube at the mid clavicle. Nasogastric tube and cardiac pacing device are in good position. Cardiomegaly is present with low volume left effusion. Underlying hyperinflation and shunt vascularity mildly present. No pneumothorax. External cardiac leads are present. Surgical clip left neck Impression: 1. Persistent low volume effusions and component of cardiac decompensation with cardiomegaly CHF 2. Stable appearance of the life support tubes 3. mild hyperinflation COPD change also present PROCEDURE INTERPRETED AT [facility] [place] DEPARTMENT OF RADIOLOGY Final Report Signed by: Dr. Rivas Cameron
[2017-03-11] MEDS: PANTOPRAZOLE 40 MG TABLET PO SCH (09:25)
[2017-03-11] MEDS: DILTIAZEM 30 MG TABLET PO SCH ×4 (09:25→20:43)
[2017-03-11] MEDS: NEBIVOLOL 10 MG TABLET PO SCH ×2 (09:25→20:43)
[2017-03-11] MEDS: LOSARTAN 50 MG TABLET PO SCH (09:25)
[2017-03-11] MEDS: ASPIRIN EC 81 MG TABLET PO SCH (09:25)
[2017-03-11] MEDS: ESCITALOPRAM 10 MG TABLET PO SCH (09:25)
[2017-03-11] MEDS: PIPERACILLIN/TAZOBACTAM 3,375 MG in SODIUM CHLORIDE 0.9% 100 ML IV SCH ×3 (09:26→23:41)
[2017-03-11] MEDS: cycloSPORINE OPH EMUL 1 VIAL BOTH EYES SCH ×2 (09:30→20:46)
[2017-03-11] MEDS: methylPREDNISolone SOD SUC 40 MG/1 ML VIAL IV SCH ×2 (10:30→23:41)
[2017-03-11] MEDS: ENOXAPARIN 60 MG/0.6 ML SYRINGE SUBCUT SCH ×2 (10:33→23:41)
--- NOTE | 2017-03-11 12:40 | Hospitalist Progress Note ---
Assessment and Plan (1) Aspiration pneumonia Status: Acute Assessment and plan: The patient is intubated due to respiratory failure on account of aspiration pneumonia. We will continue efforts for weaning slowly and continue present IV antibiotic care. I coordinated care with Dr. Goldstein today. Current Visit: Yes (2) CAD (coronary artery disease) Status: Chronic Current Visit: No (3) PVD (peripheral vascular disease) Status: Chronic Current Visit: No Hospitalist: Subjective Interval history: The patient was admitted hospital with shortness of breath. It appears to be multifactorial. The patient does have some cardiomyopathy. The patient has some COPD and she developed an episode of aspiration which caused precipitation of respiratory failure for which she was intubated. The patient is now improving and tolerating trials of CPAP. Exam - Constitutional Vitals: Period Temp Pulse Resp BP Sys/Puri Pulse Ox Last 24 Hr 96.4 F-97.5 F 58-112 12-24 110-156/48-70 96-100 Exam: Constitutional System: Mild distress. No tremulousness. The patient is on CPAP trial at present. She is orally intubated and receiving trial via mechanical ventilation. Head: Normocephalic, atraumatic. Ears, Nose and Throat System: No evidence of Otitis or Mastoiditis. No epistaxis or discharge Eyes System: Pupils equal, round, and reactive. Extraocular muscles intact. Neck: Supple, without adenopathy, No jugular venous distention. No thyromegaly , neck mass, or prior surgery apparent. Respiratory System: Chest clear to auscultation. Cardiovascular System: Heart with irregular rate and rhythm. No murmur. Results - Labs CBC & BMP: 03/11/17 04:36 03/11/17 04:36 Lab Results: I have reviewed the past 24 hour labs
--- NOTE | 2017-03-11 14:59 | Cardiology Progress Note ---
Assessment and Plan (1) Respiratory failure Status: Acute Current Visit: Yes (2) Aspiration pneumonia Status: Acute Current Visit: Yes (3) CAD (coronary artery disease) Status: Chronic Current Visit: No (4) PVD (peripheral vascular disease) Status: Chronic Current Visit: No (5) Hypertension Status: Chronic Current Visit: No (6) Dyslipidemia Status: Chronic Current Visit: No (7) Atrial fibrillation Status: Chronic Current Visit: No (8) COPD (chronic obstructive pulmonary disease) Status: Chronic Current Visit: Yes Cardiology - PN: Subj Interval history: Collect On Delivery Clerk: Dr. Velazquez PCP: Dr. Coles SUMMARY: Ms. Iverson is a 76 year old female who presented to the emergency room on 03/07/17 with complaints of sudden onset dyspnea and hypoxemia. She has a history of coronary artery disease requiring PCI in the past, atrial fibrillation, s/p permanent pacemaker implantation, paroxysmal SVT , COPD, and tobacco abuse. Her systolic function has been normal, she is not in an uncontrolled rhythm, and she is does not have a recent history of severe valvular heart disease. Her clinical presentation is very worrisome for more of a pulmonary process. Her last heart catheterization on 09/22/16 revealed patent stent to the obtuse marginal artery, mild to moderate residual coronary artery disease, mild to moderate aortic insufficiency, ejection fraction greater than 70%, moderate to severe atherosclerotic vascular disease with bilateral iliac hazy stenosis, and left superficial femoral artery stenosis. Ms. Iverson's was recently hospitalized in [place] for TAVR and they have just returned 2 days ago. She was not necessarily taking her medications as prescribed during that time, and she was consuming higher than usual salt content. MARCH 09, 2017 UPDATE: Yesterday evening, Ms. Iverson developed progressive dyspnea and was subsequently intubated in CCU to improve her oxygenation. This morning, she is resting comfortably on the ventilator. Pulmonology has been consulted. She has diuresed over 3L since admission but has had no recent urine output. Her Lasix is being stopped and she will receive a NS bolus. Her creatinine also jumped from 0.5 to [address] yesterday suggested lung infection . Although her WBC is normal today, yesterday, it was elevated with a left shift. She has been started on IV antibiotics. Echo yesterday revealed normal systolic and diastolic function. Her vital signs have been stable with a couple of hypotensive readings through the night. We will continue to monitor. March 10, 2017 update: She continues to be hemodynamically stable and is making progress on the vent. The chart is reviewed, no events overnight. I personally discussed this case with Drs. Steel and Ahmet. March 11, 2017 update: She continues to be hemodynamically stable. She is making progress with CPAP trials. Her sedation is lightened and she is appropriately interactive during her exam. ASSESSMENT/PLAN: 1. DYSPNEA - Ms. Iverson had an initial presentation suspicious for CHF with chest x-ray showing interstitial edema and mildly elevated BNP ( disproportionate to her presentation and symptoms). After diuresis of over 3L, she continued to have significant dyspnea and hypoxia. Her echocardiogram revealed normal LV systolic and diastolic function, mild LA enlargement, mild MR , mild AI, mild TR. We obtained a CT chest yesterday evening which revealed no evidence of PE, left lower lobe pulmonary cyst 28mm in diameter, mediastinal lymphadenopathy, and multilobar patchy areas of alveolar consolidation suggestive of multilobar pneumonia, ARDS, or neoplasm. She has been intubated, and is being treated for pneumonia. Clinically she seems stable or improving. 2. COPD - Hospital medicine is following. She is now intubated and on mechanical ventilation. 3. CORONARY ARTERY DISEASE - Her last heart catheterization on 09/22/16 revealed patent stent to the obtuse marginal artery, mild to moderate residual coronary artery disease, mild to moderate aortic insufficiency, ejection fraction greater than 70%, moderate to severe atherosclerotic valvular disease with bilateral iliac hazy stenosis and left superficial femoral artery stenosis. She is clinically stable. 4. PERIPHERAL VASCULAR DISEASE - DEIDRE's on 10/03/16 revealed mild to moderate right and left peripheral vascular disease. Disease was noted on prior cardiac catheterization. 5. HYPERTENSION - Currently well controlled. 6. DYSLIPIDEMIA - Lipid panel revealed triglycerides 162, cholesterol 152, LDL 81, and HDL 38. 7. ATRIAL FIBRILLATION - Currently in atrial fibrillation. She is chronically anticoagulated with Pradaxa. H&H mildly diminished but stable at 10.5 and 32.5. 8. S/P PACEMAKER IMPLANTATION - Patient has a [employer] device which was last interrogated on 02/26/17 and found to be functioning appropriately with 55% MANUFA[employer]URING BAK[employer]. 9. Pneumonia-she is on antibiotics and being followed by pulmonology. Exam (Progress Note) - Constitutional Vitals: Period Temp Pulse Resp BP Sys/Puri Pulse Ox Last 24 Hr 96.4 F-97.5 F 58-93 12-27 110-157/48-86 96-100 Exam: General appearance: normal weight, no acute distress, intubated, mildly alert and interactive - Head Head exam: Present: normocephalic, atraumatic,. Absent: hematoma, laceration - Eye Eye exam: Present: Chronic proptosis. Absent: conjunctival injection, nystagmus , periorbital swelling, scleral icterus, laceration to eyelids Pupils: Present: NICKI. Absent: constricted, dilated, fixed, irregular, unequal - ENT ENT exam: Present: normal exam, normal external ear exam - Neck Neck exam: Present: normal inspection. Absent: lymphadenopathy, meningismus, tenderness, thyromegaly - Respiratory Respiratory exam: Present: clear to auscultation bilaterally anteriorly, there is normal rise with ventilated breaths. Absent: accessory muscle use, chest wall tenderness - Cardiovascular Cardiovascular exam: Present: Irregularly irregular rate and rhythm. Absent: carotid bruit, gallop, JVD, rubs - GI/Abdominal GI/Abdominal exam: Present: normal bowel sounds. Absent: distended, firm, guarding, hernia, mass, tenderness, rebound, soft - Extremities Exam Extremities exam: Present: decreased pulses bilateral extremities. Absent: calf tenderness, edema - Back Exam Back exam: Unable to assess due to patient being on the ventilator - Neurological Exam Neurological exam: Unable to fully assess due to patient being on the ventilator. She does appear to move all 4 extremities. - Psychiatric Psychiatric exam: Unable to assess due to patient being on the ventilator. - Skin Skin exam: Present: normal color, warm, dry, intact. Absent: cyanosis, diaphoretic, rash, urticaria Result/EKG - Labs CBC & BMP: 03/11/17 04:36 03/11/17 04:36 Lab Results: I have reviewed the past 24 hour labs Labs: Laboratory Results - last 24 hr 03/10/17 03/10/17 03/10/17 17:24 19:13 19:13 WBC RBC Hgb Hct MCV MCH MCHC RDW Plt Count MPV Neut % (Auto) Lymph % (Auto) [place] % (Auto) Eos % (Auto) Baso % (Auto) Neut # (Auto) Lymph # (Auto) [place] # (Auto) Eos # (Auto) Baso # (Auto) Total Counted Immature Gran % Nucleated RBC % Immature Gran # Segmented Neutrophils Band Neutrophils Lymphocytes Monocytes Nucleated RBCs # Platelet Estimate Immature Plt Fraction Hypochromasia Microcytosis ABG pH ABG pCO2 ABG pO2 ABG HCO3 ABG Total CO2 ABG O2 Saturation ABG Base Excess FiO2 Sodium Potassium 3.9 Chloride Carbon Dioxide Anion Gap BUN Creatinine GFR Calculation BUN/Creatinine Ratio Glucose POC Glucose 170 H Calculated Osmolality Calcium Magnesium 2.9 H 03/10/17 03/11/17 03/11/17 23:03 03:25 04:36 WBC 7.7 RBC 3.38 L Hgb 9.8 L Hct 30.9 L MCV 91.4 MCH 29 MCHC 31.7 L RDW 15.0 Plt Count 201 MPV 10.5 Neut % (Auto) 88.2 H Lymph % (Auto) 6.0 L [place] % (Auto) 5.2 Eos % (Auto) 0.0 Baso % (Auto) 0.1 Neut # (Auto) 6.8 Lymph # (Auto) 0.5 L [place] # (Auto) 0.4 Eos # (Auto) 0.0 Baso # (Auto) 0.0 Total Counted 100 Immature Gran % 0.5 Nucleated RBC % 0.0 Immature Gran # 0.04 Segmented Neutrophils 88 H Band Neutrophils 1 Lymphocytes 7 L Monocytes 4 Nucleated RBCs # 0.00 Platelet Estimate Adequate Immature Plt Fraction 0.0 Hypochromasia Slight Microcytosis 2+ ABG pH 7.449 ABG pCO2 40.9 ABG pO2 121.0 H ABG HCO3 28.1 H ABG Total CO2 25.9 ABG O2 Saturation 98.5 ABG Base Excess 4.1 H FiO2 50.00 Sodium Potassium Chloride Carbon Dioxide Anion Gap BUN Creatinine GFR Calculation BUN/Creatinine Ratio Glucose POC Glucose 178 H Calculated Osmolality Calcium Magnesium 03/11/17 04:36 WBC RBC Hgb Hct MCV MCH MCHC RDW Plt Count MPV Neut % (Auto) Lymph % (Auto) [place] % (Auto) Eos % (Auto) Baso % (Auto) Neut # (Auto) Lymph # (Auto) [place] # (Auto) Eos # (Auto) Baso # (Auto) Total Counted Immature Gran % Nucleated RBC % Immature Gran # Segmented Neutrophils Band Neutrophils Lymphocytes Monocytes Nucleated RBCs # Platelet Estimate Immature Plt Fraction Hypochromasia Microcytosis ABG pH ABG pCO2 ABG pO2 ABG HCO3 ABG Total CO2 ABG O2 Saturation ABG Base Excess FiO2 Sodium 139 Potassium 4.3 Chloride 103 Carbon Dioxide 29 Anion Gap 11.3 BUN 37 H Creatinine 0.70 GFR Calculation 82 BUN/Creatinine Ratio 52.00 H Glucose 178 H POC Glucose Calculated Osmolality 289.5 Calcium 8.8 Magnesium 2.8 H - Diagnostic Findings Procedure: Chest x-ray: report reviewed by me
[2017-03-11] MEDS: MIDAZOLAM 100 MG in SODIUM CHLORIDE 0.9% 80 ML IV SCH (19:00)
[2017-03-11] MEDS: LEVOFLOXACIN INJ 500 MG in PREMIX 1 EACH IV SCH (20:44)
[2017-03-11] MEDS: LATANOPROST 0.005% OPH SOLN 2.5 ML BOTTLE BOTH EYES SCH (20:46)
[2017-03-12] MEDS: ALBUTEROL/IPRATROPIUM 3 ML NEB RESP TX SCH ×4 (00:47→19:10)
[2017-03-12] MEDS: LORazepam 2 MG/1 ML VIAL IV PRN ×2 (02:45→20:18)
[2017-03-12 03:56] LABS: Pt O2 Delivery Device Ventilator
[2017-03-12 04:01] LABS: ABG Base Excess 4.6 MMOL/L (-2.5-2.5); ABG HCO3 28.6 MMOL/L (20-26); ABG Oxygen Saturation 97.5 % (95-100); ABG PCO2 43.6 MM HG (35-48); ABG PH 7.436 (7.35-7.45); ABG PO2 96.8 MM HG (80-95); ABG TCO2 26.8 MMOL/L (23-27)
[2017-03-12 04:51] LABS: Basophils % 0.1 % (0.0-0.8); Hematocrit 30.4 VOL% (35.7-47.0); Hemoglobin 9.7 GM/DL (12.0-16.0); Immature Granulocytes % 1.5 %; Immature Granulocytes Absolute 0.11 #; Lymphocytes # 0.7 10*3/uL (1.4-4.0); Lymphocytes % 9.4 % (21.3-54.2); Mean Corpuscular HGB Conc 31.9 GM/DL (32-36); Mean Corpuscular Hemoglobin 29 PG (27-34); Mean Corpuscular Volume 91.8 FL (87-102); Mean Platelet Volume 10.7 FL (9.6-12.0); Monocytes # 0.5 10*3/uL (0.11-0.8); Monocytes % 6.4 % (1.7-12.7); Neutrophils # 6.1 10*3/uL (1.4-7.4); Neutrophils % 82.6 % (38.7-73.9); Platelet Count 236 T/CUMM (130-400); Red Blood Count 3.31 MC/CUMM (3.8-5.5); Red Cell Distribution Width 15.4 % (9.3-17.3); White Blood Count 7.4 T/CUMM (4-12)
[2017-03-12 05:30] LABS: Calcium 8.8 MG/DL (8.5-10.1); Magnesium 2.5 MG/DL (1.8-2.4); Osmolality,Calculated 292.1 MOS/KG (273-304); Potassium 4.1 MMOL/L (3.5-5.1); Prealbumin 22.4 MG/DL (20-40)
[2017-03-12] MEDS: LEVOTHYROXINE 75 MCG TABLET PO SCH (06:38)
[2017-03-12] MEDS: INSULIN LISPRO 100 UNIT/ML SUBCUT SCH ×3 (06:38→18:27)
--- NOTE | 2017-03-12 07:40 | XRay Report ---
Portable chest Date: 03/12/2017 Clinical history: Ventilator Comparison: 03/11/2017 Technique: Portable AP sitting chest Findings: The heart appears smaller in size with left subclavian ventricular permanent pacemaker. The endotracheal tube remains above the level of cathleen with nasogastric tube seen entering the stomach. Minimal reduction in the pleural and parenchymal findings which remain more prominent the left lung base. Postoperative findings in the left neck with stable mediastinum and osseous structures. Impression: Minimally reduced atelectasis/edema/infiltration with minimally smaller left pleural effusion. Left subclavian ventricular permanent pacemaker. The supportive devices remain in satisfactory position. PROCEDURE INTERPRETED AT [facility] DEPARTMENT OF RADIOLOGY Final Report Signed by: Dr. Kimmy Montes
--- NOTE | 2017-03-12 09:13 | Cardiology Progress Note ---
Assessment and Plan - Time spent with patient Time spent with patient: Less than 30 minutes (1) Dyspnea Status: Acute Assessment and plan: See plan of care listed below. Current Visit: Yes (2) COPD (chronic obstructive pulmonary disease) Status: Chronic Assessment and plan: See plan of care listed below. Current Visit: Yes (3) CAD (coronary artery disease) Status: Chronic Assessment and plan: See plan of care listed below. Current Visit: No (4) PVD (peripheral vascular disease) Status: Chronic Assessment and plan: See plan of care listed below. Current Visit: No (5) Hypertension Status: Chronic Assessment and plan: See plan of care listed below. Current Visit: No (6) Dyslipidemia Status: Chronic Assessment and plan: See plan of care listed below. Current Visit: No (7) Atrial fibrillation Status: Chronic Assessment and plan: See plan of care listed below. Current Visit: No Cardiology - PN: Subj Interval history: Work Over Rig Operator: Dr. Velazquez PCP: Dr. Coles SUMMARY: Ms. Iverson is a 76 year old female who presented to the emergency room on 03/07/17 with complaints of sudden onset dyspnea and hypoxemia. She has a history of coronary artery disease requiring PCI in the past, atrial fibrillation, s/p permanent pacemaker implantation, paroxysmal SVT , COPD, and tobacco abuse. Her systolic function has been normal, she is not in an uncontrolled rhythm, and she is does not have a recent history of severe valvular heart disease. Her clinical presentation is very worrisome for more of a pulmonary process. Her last heart catheterization on 09/22/16 revealed patent stent to the obtuse marginal artery, mild to moderate residual coronary artery disease, mild to moderate aortic insufficiency, ejection fraction greater than 70%, moderate to severe atherosclerotic vascular disease with bilateral iliac hazy stenosis, and left superficial femoral artery stenosis. Ms. Iverson's was recently hospitalized in [place] for TAVR and they have just returned 2 days ago. She was not necessarily taking her medications as prescribed during that time, and she was consuming higher than usual salt content. March 12, 2017 update: She continues to be hemodynamically stable. She is making progress with CPAP trials. We will continue with supportive care. She is receiving Cardizem 60mg po QID. Once she has been extubated, she will need to be transitioned back to the extended release. Dr. Fountain to follow with further plan and addendum. ASSESSMENT/PLAN: 1. DYSPNEA - Ms. Iverson had an initial presentation suspicious for CHF with chest x-ray showing interstitial edema and mildly elevated BNP ( disproportionate to her presentation and symptoms). After diuresis of over 3L, she continued to have significant dyspnea and hypoxia. Her echocardiogram revealed normal LV systolic and diastolic function, mild LA enlargement, mild MR , mild AI, mild TR. We obtained a CT chest yesterday evening which revealed no evidence of PE, left lower lobe pulmonary cyst 28mm in diameter, mediastinal lymphadenopathy, and multilobar patchy areas of alveolar consolidation suggestive of multilobar pneumonia, ARDS, or neoplasm. She has been intubated, and is being treated for pneumonia. Clinically she seems stable or improving. 2. COPD - Hospital medicine is following. She is now intubated and on mechanical ventilation. 3. CORONARY ARTERY DISEASE - Her last heart catheterization on 09/22/16 revealed patent stent to the obtuse marginal artery, mild to moderate residual coronary artery disease, mild to moderate aortic insufficiency, ejection fraction greater than 70%, moderate to severe atherosclerotic valvular disease with bilateral iliac hazy stenosis and left superficial femoral artery stenosis. She is clinically stable. 4. PERIPHERAL VASCULAR DISEASE - DEIDRE's on 10/03/16 revealed mild to moderate right and left peripheral vascular disease. Disease was noted on prior cardiac catheterization. 5. HYPERTENSION - Currently well controlled. 6. DYSLIPIDEMIA - Lipid panel revealed triglycerides 162, cholesterol 152, LDL 81, and HDL 38. 7. ATRIAL FIBRILLATION - Currently in atrial fibrillation. She is chronically anticoagulated with Pradaxa. H&H mildly diminished but stable at 9.7 &30.4. 8. S/P PACEMAKER IMPLANTATION - Patient has a [employer] device which was last interrogated on 02/26/17 and found to be functioning appropriately with 55% CARDIOVASCULAR RADIOLOGIC TECHNOLOGIST. 9. Pneumonia-she is on antibiotics and being followed by pulmonology. Exam (Progress Note) - Constitutional Vitals: Period Temp Pulse Resp BP Sys/Puri Pulse Ox Last 24 Hr 96.9 F-97.4 F 56-87 12-27 119-156/43-84 98-100 Exam: General appearance: Orally intubated and sedated on ventilator. Normal weight, no acute distress. - Head Head exam: Present: normal inspection, normocephalic, atraumatic. Absent: hematoma, laceration - Eye Eye exam: Present: EOMI. exopthalmos. Absent: conjunctival injection, nystagmus , periorbital swelling, scleral icterus, laceration to eyelids Pupils: Present: PERRL. Absent: constricted, dilated, fixed, irregular, unequal - ENT ENT exam: Present: Orally intubated, normal external ear exam - Neck Neck exam: Present: normal inspection. Absent: lymphadenopathy, meningismus, tenderness - Respiratory Respiratory exam: Present: Mechanically ventilated breath sounds. Absent: accessory muscle use - Cardiovascular Cardiovascular exam: Present: regular rate and rhythm. bilateral carotid bruit, systolic murmur Absent: gallop, rubs - GI/Abdominal GI/Abdominal exam: Present: normal bowel sounds, soft. Absent: distended, firm , guarding, hernia, mass, tenderness, rebound. - Extremities Exam Extremities exam: Present: normal inspection, normal capillary refill. Upper extremity pulses 2+. Lower extremity pulses 2+. Absent: calf tenderness, edema - Back Exam Back exam: Present: Unable to examine due to habitus. Sedated on mechanical ventilator. - Neurological Exam Neurological exam: Present: Limited due to habitus (on ventilator). Arousable to verbal stimuli. Will follow commands to move all extremities. No resting or essential tremor. - Psychiatric Psychiatric exam: Present: Unable to adequately assess due to patient being sedated and on mechanical ventilation. - Skin Skin exam: Present: normal color, warm, dry, intact. Absent: cyanosis, diaphoretic, rash, urticaria Result/EKG - Labs CBC & BMP: 03/12/17 04:22 03/12/17 04:22 Lab Results: I have reviewed the past 24 hour labs Labs: Laboratory Results - last 24 hr 03/11/17 03/11/17 03/11/17 06:15 12:19 18:23 WBC RBC Hgb Hct MCV MCH MCHC RDW Plt Count MPV Neut % (Auto) Lymph % (Auto) [place] % (Auto) Eos % (Auto) Baso % (Auto) Neut # (Auto) Lymph # (Auto) [place] # (Auto) Eos # (Auto) Baso # (Auto) Immature Gran % Nucleated RBC % Immature Gran # Nucleated RBCs # Immature Plt Fraction ABG pH ABG pCO2 ABG pO2 ABG HCO3 ABG Total CO2 ABG O2 Saturation ABG Base Excess FiO2 Sodium Potassium Chloride Carbon Dioxide Anion Gap BUN Creatinine GFR Calculation BUN/Creatinine Ratio Glucose POC Glucose 188 H 162 H 180 H Calculated Osmolality Calcium Phosphorus Magnesium Prealbumin 03/11/17 03/12/17 03/12/17 23:19 03:35 04:22 WBC 7.4 RBC 3.31 L Hgb 9.7 L Hct 30.4 L MCV 91.8 MCH 29 MCHC 31.9 L RDW 15.4 Plt Count 236 MPV 10.7 Neut % (Auto) 82.6 H Lymph % (Auto) 9.4 L [place] % (Auto) 6.4 Eos % (Auto) 0.0 Baso % (Auto) 0.1 Neut # (Auto) 6.1 Lymph # (Auto) 0.7 L [place] # (Auto) 0.5 Eos # (Auto) 0.0 Baso # (Auto) 0.0 Immature Gran % 1.5 Nucleated RBC % 0.0 Immature Gran # 0.11 Nucleated RBCs # 0.00 Immature Plt Fraction 0.0 ABG pH 7.436 ABG pCO2 43.6 ABG pO2 96.8 H ABG HCO3 28.6 H ABG Total CO2 26.8 ABG O2 Saturation 97.5 ABG Base Excess 4.6 H FiO2 50.00 Sodium Potassium Chloride Carbon Dioxide Anion Gap BUN Creatinine GFR Calculation BUN/Creatinine Ratio Glucose POC Glucose 166 H Calculated Osmolality Calcium Phosphorus Magnesium Prealbumin 03/12/17 03/12/17 04:22 06:01 WBC RBC Hgb Hct MCV MCH MCHC RDW Plt Count MPV Neut % (Auto) Lymph % (Auto) [place] % (Auto) Eos % (Auto) Baso % (Auto) Neut # (Auto) Lymph # (Auto) [place] # (Auto) Eos # (Auto) Baso # (Auto) Immature Gran % Nucleated RBC % Immature Gran # Nucleated RBCs # Immature Plt Fraction ABG pH ABG pCO2 ABG pO2 ABG HCO3 ABG Total CO2 ABG O2 Saturation ABG Base Excess FiO2 Sodium 142 Potassium 4.1 Chloride 105 Carbon Dioxide 28 Anion Gap 13.1 BUN 30 H Creatinine 0.50 L GFR Calculation 92 BUN/Creatinine Ratio 60.00 H Glucose 162 H POC Glucose 212 H Calculated Osmolality 292.1 Calcium 8.8 Phosphorus 3.0 Magnesium 2.5 H Prealbumin 22.4 - EKG EKG results: interpreted by me EKG shows: atrial fibrillation
[2017-03-12] MEDS: PIPERACILLIN/TAZOBACTAM 3,375 MG in SODIUM CHLORIDE 0.9% 100 ML IV SCH ×2 (09:29→15:54)
[2017-03-12] MEDS: ASPIRIN EC 81 MG TABLET PO SCH (09:29)
[2017-03-12] MEDS: NEBIVOLOL 10 MG TABLET PO SCH ×2 (09:30→21:13)
[2017-03-12] MEDS: DILTIAZEM 30 MG TABLET PO SCH ×4 (09:30→21:14)
[2017-03-12] MEDS: ESCITALOPRAM 10 MG TABLET PO SCH (09:32)
[2017-03-12] MEDS: cycloSPORINE OPH EMUL 1 VIAL BOTH EYES SCH ×2 (09:32→21:17)
[2017-03-12] MEDS: PANTOPRAZOLE 40 MG TABLET PO SCH (09:32)
[2017-03-12] MEDS: LOSARTAN 50 MG TABLET PO SCH (09:32)
[2017-03-12] MEDS: ANORO ELLIPTA (Umeclidinium Brm/Vilanterol Tr) 1 PUFF INH SCH (09:33)
--- NOTE | 2017-03-12 11:21 | Pulmonology Progress Note ---
Pulmonary - PN: Subj Interval history: This is a 76-year-old female whom I saw in pulmonary consultation on 03/09/2017. My impressions were. #1: Acute respiratory failure requiring intubation and mechanical ventilation #2: Probable aspiration. Nursing staff is suctioning thick tenacious secretions from ET tube. #3: Acute congestive heart failure. #4: Graves' disease #5: Coronary artery disease #6: Peripheral vascular disease #7: Hypertension #8: Dyslipidemia #9: Atrial fibrillation #10: Anemia #11: Azotemia #12: See past history 03/12/2017. Chest x-ray shows resolution of congestive heart failure. ABGs are stable. Lab looks good. Nitrated peptide is decreased to 185. Patient sedated. Asked the nursing staff to let up on his sedation. We will go to a T- tube trial and repeat her blood gases reevaluate at that time. Hopefully we can move along a little faster with her weaning process. Physical exam. Vital signs. See below Psychiatric. Sedated Neurologic appears to move all fours Chest. Clear Heart lateral PMI Abdomen nondistended Extremities nothing to suggest deep venous thrombophlebitis The remainder the physical exam is negative Plan: 03/09/2007 #1: We will proceed with fiberoptic bronchoscopy today #2: Ventilator weaning protocol #3: Physical therapy protocol #4: Decrease FiO2 to 50% #5: Daily chest x-ray and ABGs while on the ventilator #6: Agree with present antibiotics to cover for possible pneumonia 03/12/2017. 1. See today's note above 2. T-tube trial. Awaiting blood gases. Exam (Progress Note) - Constitutional Vitals: Period Temp Pulse Resp BP Sys/Puri Pulse Ox Last 24 Hr 96.9 F-97.4 F 56-87 12-27 119-154/43-84 98-100 Results - Labs CBC & BMP: 03/12/17 04:22 03/12/17 04:22
[2017-03-12 11:37] LABS: ABG Base Excess 4.6 MMOL/L (-2.5-2.5); ABG HCO3 28.4 MMOL/L (20-26); ABG Oxygen Saturation 90.4 % (95-100); ABG PCO2 49.2 MM HG (35-48); ABG PH 7.402 (7.35-7.45); ABG PO2 63.4 MM HG (80-95); ABG TCO2 26.4 MMOL/L (23-27)
--- NOTE | 2017-03-12 11:40 | Hospitalist Progress Note ---
Assessment and Plan (1) CAD (coronary artery disease) Status: Chronic Current Visit: No (2) PVD (peripheral vascular disease) Status: Chronic Current Visit: No (3) Aspiration pneumonia Status: Acute Assessment and plan: Continue levofloxacin and zosyn Current Visit: Yes (4) Respiratory failure Status: Acute Assessment and plan: Secondary to aspiration pneumonia Intubated with pulmonary managing vent Sedation off today Current Visit: Yes Hospitalist: Subjective Interval history: No acute events overnight. Sedation off this morning on my rounds, patient awake and following commands. Exam - Constitutional Vitals: Period Temp Pulse Resp BP Sys/Puri Pulse Ox Last 24 Hr 96.9 F-97.4 F 56-87 12-27 119-154/43-84 98-100 General appearance: normal weight, other (et tube in place) - Head Head exam: Present: normocephalic, atraumatic - Eye Eye exam: Present: EOMI Pupils: Present: NICKI - ENT ENT exam: Present: normal exam - Neck Neck exam: Present: normal inspection - Respiratory Respiratory exam: Present: clear to auscultation bilaterally. Absent: rhonchi, wheezes - Cardiovascular Cardiovascular exam: Present: regular rate and rhythm - GI/Abdominal GI/Abdominal exam: Present: normal bowel sounds, soft. Absent: tenderness, rebound - Extremities Exam Extremities exam: Present: normal inspection - Back Exam Back exam: Present: normal inspection - Neurological Exam Neurological exam: Present: alert, oriented X3 - Psychiatric Psychiatric exam: Present: normal affect, normal mood - Skin Skin exam: Present: warm, intact Results - Labs CBC & BMP: 03/12/17 04:22 03/12/17 04:22
[2017-03-12] MEDS: ENOXAPARIN 60 MG/0.6 ML SYRINGE SUBCUT SCH (12:01)
[2017-03-12] MEDS: methylPREDNISolone SOD SUC 40 MG/1 ML VIAL IV SCH (12:02)
--- NOTE | 2017-03-12 12:31 | Physician Query Form ---
CLICK EDIT DOCUMENT TO SELECT QUERY ANSWER --> OK --> SIGN Tonja Reese RN, CCDS Certified Clinical Strapping Machine Tender W) [phone] (f) [phone] [email or web address] PROVIDERS: Make your selection(s) from the choices in EACH section by typing an "x" and enter comments in the comment section. Please use your independent medical judgment in providing your response. This request does not imply that any particular answer is desired or expected. CLINICAL INDICATORS: (Providers should not edit this section) The below diagnosis was documented in the record, but is not consistently noted in subsequent documentation. The medical record indicates that the patient was admitted with CHF exacerbation , ER mentions COPD exacerbation, and the patient was treated with Duoneb, Levofloxacin. As the attending MD can you please clarify if the COPD was ? Diagnosis: COPD exacerbation Please clarify the following: (x ) The above diagnosis was monitored, evaluated, and/or treated and is a confirmed diagnosis ( ) The above diagnosis was ruled out ( ) The above diagnosis is still a likely, suspected, probable diagnosis ( ) Other, please specify: ( ) Clinically unable to determine COMMENTS: PLEASE ALSO DOCUMENT RESPONSE IN PROGRESS NOTES AND/OR DISCHARGE SUMMARY Use of terms such as suspected, likely, or probable (associated with a specific diagnosis that is being evaluated, monitored, or treated as if it exists) are acceptable and can be restated in the discharge summary if not ruled out. MTDD
[2017-03-12] MEDS: MIDAZOLAM 100 MG in SODIUM CHLORIDE 0.9% 80 ML IV SCH (17:16)
[2017-03-12] MEDS: LEVOFLOXACIN INJ 500 MG in PREMIX 1 EACH IV SCH (21:14)
[2017-03-12] MEDS: LATANOPROST 0.005% OPH SOLN 2.5 ML BOTTLE BOTH EYES SCH (22:41)
[2017-03-13] MEDS: methylPREDNISolone SOD SUC 40 MG/1 ML VIAL IV SCH (00:38)
[2017-03-13] MEDS: PIPERACILLIN/TAZOBACTAM 3,375 MG in SODIUM CHLORIDE 0.9% 100 ML IV SCH ×3 (00:38→16:19)
[2017-03-13] MEDS: ENOXAPARIN 60 MG/0.6 ML SYRINGE SUBCUT SCH ×3 (00:38→22:09)
[2017-03-13] MEDS: INSULIN LISPRO 100 UNIT/ML SUBCUT SCH ×4 (00:43→19:02)
[2017-03-13] MEDS: ALBUTEROL/IPRATROPIUM 3 ML NEB RESP TX SCH ×4 (00:55→20:19)
[2017-03-13 04:03] LABS: ABG Base Excess 4.9 MMOL/L (-2.5-2.5); ABG HCO3 28.8 MMOL/L (20-26); ABG Oxygen Saturation 95.9 % (95-100); ABG PH 7.437 (7.35-7.45); ABG PO2 80.4 MM HG (80-95); Allen Test Positive; Pt O2 Delivery Device Ventilator
[2017-03-13 05:01] LABS: Basophils % 0.3 % (0.0-0.8); Hematocrit 32.2 VOL% (35.7-47.0); Immature Granulocytes Absolute 0.37 #; Mean Corpuscular HGB Conc 31.1 GM/DL (32-36); Mean Corpuscular Hemoglobin 29 PG (27-34); Mean Platelet Volume 11.1 FL (9.6-12.0); Monocytes # 0.5 10*3/uL (0.11-0.8); Monocytes % 6.9 % (1.7-12.7); NRBC # 0.02 10*3/uL; Neutrophils # 5.5 10*3/uL (1.4-7.4); Neutrophils % 74.8 % (38.7-73.9); Platelet Count 222 T/CUMM (130-400); Red Cell Distribution Width 15.3 % (9.3-17.3); White Blood Count 7.4 T/CUMM (4-12)
[2017-03-13 05:39] LABS: Lymphocytes 13 % (20-55); Segmented Neutrophils 83 % (50-85); Total Cells Counted 100
[2017-03-13 05:40] LABS: Giant Platelets Few; Hypochromasia 1+; Microcytosis Slight; Ovalocytes Slight; Platelet Estimate Adequate
[2017-03-13 05:45] LABS: Calcium 8.7 MG/DL (8.5-10.1); Magnesium 2.4 MG/DL (1.8-2.4); Osmolality,Calculated 288.3 MOS/KG (273-304); Potassium 4.4 MMOL/L (3.5-5.1)
[2017-03-13] MEDS: LEVOTHYROXINE 75 MCG TABLET PO SCH (06:24)
[2017-03-13 07:51] LABS: ABG Base Excess 5.3 MMOL/L (-2.5-2.5); ABG Oxygen Saturation 91.1 % (95-100); ABG PCO2 45.4 MM HG (35-48); ABG PH 7.432 (7.35-7.45); ABG PO2 62.5 MM HG (80-95); ABG TCO2 27.5 MMOL/L (23-27)
--- NOTE | 2017-03-13 08:40 | XRay Report ---
XR chest 1V portable Indication: Ventilator Comparison: Chest x-ray dated March 12, 2017 Technique: Single frontal view of the chest. Findings: Endotracheal tube stable in positioning. Continued mild cardiomegaly. Pacemaker apparatus again demonstrated. Continued left basilar atelectasis/consolidation and small left pleural fluid. Minimal opacification remains within the left suprahilar and right basilar regions. Visualized osseous and surrounding soft tissue structures appear grossly unchanged. IMPRESSION: No significant interval change. PROCEDURE INTERPRETED AT [facility] DEPARTMENT OF RADIOLOGY Final Report Signed by: Dr José Miguel Mendez
--- NOTE | 2017-03-13 08:48 | Cardiology Progress Note ---
Assessment and Plan - Time spent with patient Time spent with patient: Less than 30 minutes (1) Dyspnea Status: Acute Assessment and plan: See plan of care listed below. Current Visit: Yes (2) COPD (chronic obstructive pulmonary disease) Status: Chronic Assessment and plan: See plan of care listed below. Current Visit: Yes (3) CAD (coronary artery disease) Status: Chronic Assessment and plan: See plan of care listed below. Current Visit: No (4) PVD (peripheral vascular disease) Status: Chronic Assessment and plan: See plan of care listed below. Current Visit: No (5) Hypertension Status: Chronic Assessment and plan: See plan of care listed below. Current Visit: No (6) Dyslipidemia Status: Chronic Assessment and plan: See plan of care listed below. Current Visit: No (7) Atrial fibrillation Status: Chronic Assessment and plan: See plan of care listed below. Current Visit: No Cardiology - PN: Subj Interval history: Risk Analyst: Dr. Velazquez PCP: Dr. Coles SUMMARY: Ms. Iverson is a 76 year old female who presented to the emergency room on 03/07/17 with complaints of sudden onset dyspnea and hypoxemia. She has a history of coronary artery disease requiring PCI in the past, atrial fibrillation, s/p permanent pacemaker implantation, paroxysmal SVT , COPD, and tobacco abuse. Her systolic function has been normal, she is not in an uncontrolled rhythm, and she is does not have a recent history of severe valvular heart disease. Her clinical presentation is very worrisome for more of a pulmonary process. Her last heart catheterization on 09/22/16 revealed patent stent to the obtuse marginal artery, mild to moderate residual coronary artery disease, mild to moderate aortic insufficiency, ejection fraction greater than 70%, moderate to severe atherosclerotic vascular disease with bilateral iliac hazy stenosis, and left superficial femoral artery stenosis. Ms. Iverson's was recently hospitalized in [place] for TAVR and they have just returned 2 days ago. She was not necessarily taking her medications as prescribed during that time, and she was consuming higher than usual salt content. March 13, 2017 update: She continues to be hemodynamically stable. She is making progress with CPAP trials, currently on T-Tube trial. She is awake and alert and following commands appropriately. She is receiving Cardizem 60mg po QID and is rate controlled in atrial fibrillation. Once she has been extubated, she will need to be transitioned back to the extended release. She has been stable from a cardiac standpoint. Her heart failure has resolved. Dr. Fountain to follow with further plan and addendum. ASSESSMENT/PLAN: 1. DYSPNEA - Ms. Iverson had an initial presentation suspicious for CHF with chest x-ray showing interstitial edema and mildly elevated BNP ( disproportionate to her presentation and symptoms). After diuresis of over 3L, she continued to have significant dyspnea and hypoxia. Her echocardiogram revealed normal LV systolic and diastolic function, mild LA enlargement, mild MR , mild AI, mild TR. We obtained a CT chest which revealed no evidence of PE, left lower lobe pulmonary cyst 28mm in diameter, mediastinal lymphadenopathy, and multilobar patchy areas of alveolar consolidation suggestive of multilobar pneumonia, ARDS, or neoplasm. She has been intubated, and is being treated for pneumonia. Clinically she seems stable or improving. 2. COPD - Hospital medicine is following. She is now intubated and on mechanical ventilation, currently tolerating T-Tube trial. 3. CORONARY ARTERY DISEASE - Her last heart catheterization on 09/22/16 revealed patent stent to the obtuse marginal artery, mild to moderate residual coronary artery disease, mild to moderate aortic insufficiency, ejection fraction greater than 70%, moderate to severe atherosclerotic valvular disease with bilateral iliac hazy stenosis and left superficial femoral artery stenosis. She is clinically stable. 4. PERIPHERAL VASCULAR DISEASE - DEIDRE's on 10/03/16 revealed mild to moderate right and left peripheral vascular disease. Disease was noted on prior cardiac catheterization. 5. HYPERTENSION - Currently well controlled. 6. DYSLIPIDEMIA - Lipid panel revealed triglycerides 162, cholesterol 152, LDL 81, and HDL 38. 7. ATRIAL FIBRILLATION - Currently in atrial fibrillation. She is chronically anticoagulated with Pradaxa. H&H mildly diminished but stable at 10.0 &32.2. 8. S/P PACEMAKER IMPLANTATION - Patient has a [employer] device which was last interrogated on 02/26/17 and found to be functioning appropriately with 55% H[employer] HELPER. 9. Pneumonia-she is on antibiotics and being followed by pulmonology. Exam (Progress Note) - Constitutional Vitals: Period Temp Pulse Resp BP Sys/Puri Pulse Ox Last 24 Hr 96.9 F-98.5 F 58-81 12-31 110-157/40-89 84-100 Exam: General appearance: Orally intubated and sedated on ventilator. Normal weight, no acute distress. - Head Head exam: Present: normal inspection, normocephalic, atraumatic. Absent: hematoma, laceration - Eye Eye exam: Present: EOMI. exopthalmos. Absent: conjunctival injection, nystagmus , periorbital swelling, scleral icterus, laceration to eyelids Pupils: Present: PERRL. Absent: constricted, dilated, fixed, irregular, unequal - ENT ENT exam: Present: Orally intubated, currently on T-Tube trial, normal external ear exam - Neck Neck exam: Present: normal inspection. Absent: lymphadenopathy, meningismus, tenderness - Respiratory Respiratory exam: Present: Mechanically ventilated breath sounds. Absent: accessory muscle use - Cardiovascular Cardiovascular exam: Present: regular rate and rhythm. bilateral carotid bruit, systolic murmur Absent: gallop, rubs - GI/Abdominal GI/Abdominal exam: Present: normal bowel sounds, soft. Absent: distended, firm , guarding, hernia, mass, tenderness, rebound. - Extremities Exam Extremities exam: Present: normal inspection, normal capillary refill. Upper extremity pulses 2+. Lower extremity pulses 2+. Absent: calf tenderness, edema - Back Exam Back exam: Present: Unable to examine due to habitus. Sedated on mechanical ventilator. - Neurological Exam Neurological exam: Present: Limited due to habitus (on ventilator). Arousable to verbal stimuli. Will follow commands to move all extremities. No resting or essential tremor. - Psychiatric Psychiatric exam: Present: Unable to adequately assess due to patient being sedated and on mechanical ventilation. - Skin Skin exam: Present: normal color, warm, dry, intact. Absent: cyanosis, diaphoretic, rash, urticaria Result/EKG - Labs CBC & BMP: 03/13/17 04:03 03/13/17 04:03 Lab Results: I have reviewed the past 24 hour labs Labs: Laboratory Results - last 24 hr 03/12/17 03/12/17 03/12/17 09:08 11:15 11:38 WBC RBC Hgb Hct MCV MCH MCHC RDW Plt Count MPV Neut % (Auto) Lymph % (Auto) Montgomery % (Auto) Eos % (Auto) Baso % (Auto) Neut # (Auto) Lymph # (Auto) Montgomery # (Auto) Eos # (Auto) Baso # (Auto) Total Counted Immature Gran % Nucleated RBC % Immature Gran # Segmented Neutrophils Lymphocytes Monocytes Nucleated RBCs # Platelet Estimate Giant Platelets Immature Plt Fraction Hypochromasia Microcytosis Ovalocytes ABG pH 7.402 ABG pCO2 49.2 H ABG pO2 63.4 L ABG HCO3 28.4 H ABG Total CO2 26.4 ABG O2 Saturation 90.4 L ABG Base Excess 4.6 H FiO2 Sodium Potassium Chloride Carbon Dioxide Anion Gap BUN Creatinine GFR Calculation BUN/Creatinine Ratio Glucose POC Glucose 148 H Calculated Osmolality Calcium Magnesium B-Natriuretic Peptide 185 H 03/12/17 03/13/17 03/13/17 17:40 00:08 03:50 WBC RBC Hgb Hct MCV MCH MCHC RDW Plt Count MPV Neut % (Auto) Lymph % (Auto) Montgomery % (Auto) Eos % (Auto) Baso % (Auto) Neut # (Auto) Lymph # (Auto) Montgomery # (Auto) Eos # (Auto) Baso # (Auto) Total Counted Immature Gran % Nucleated RBC % Immature Gran # Segmented Neutrophils Lymphocytes Monocytes Nucleated RBCs # Platelet Estimate Giant Platelets Immature Plt Fraction Hypochromasia Microcytosis Ovalocytes ABG pH 7.437 ABG pCO2 44.0 ABG pO2 80.4 ABG HCO3 28.8 H ABG Total CO2 27.0 ABG O2 Saturation 95.9 ABG Base Excess 4.9 H FiO2 50.00 Sodium Potassium Chloride Carbon Dioxide Anion Gap BUN Creatinine GFR Calculation BUN/Creatinine Ratio Glucose POC Glucose 158 H 143 H Calculated Osmolality Calcium Magnesium B-Natriuretic Peptide 03/13/17 03/13/17 03/13/17 04:03 04:03 06:04 WBC 7.4 RBC 3.50 L Hgb 10.0 L Hct 32.2 L MCV 92.0 MCH 29 MCHC 31.1 L RDW 15.3 Plt Count 222 MPV 11.1 Neut % (Auto) 74.8 H Lymph % (Auto) 13.0 L Montgomery % (Auto) 6.9 Eos % (Auto) 0.0 Baso % (Auto) 0.3 Neut # (Auto) 5.5 Lymph # (Auto) 1.0 L Montgomery # (Auto) 0.5 Eos # (Auto) 0.0 Baso # (Auto) 0.0 Total Counted 100 Immature Gran % 5.0 Nucleated RBC % 0.3 Immature Gran # 0.37 Segmented Neutrophils 83 Lymphocytes 13 L Monocytes 4 Nucleated RBCs # 0.02 Platelet Estimate Adequate Giant Platelets Few Immature Plt Fraction 0.0 Hypochromasia 1+ Microcytosis Slight Ovalocytes Slight ABG pH ABG pCO2 ABG pO2 ABG HCO3 ABG Total CO2 ABG O2 Saturation ABG Base Excess FiO2 Sodium 141 Potassium 4.4 Chloride 105 Carbon Dioxide 27 Anion Gap 13.4 BUN 27 H Creatinine 0.40 L GFR Calculation 100 BUN/Creatinine Ratio 67.00 H Glucose 159 H POC Glucose 127 H Calculated Osmolality 288.3 Calcium 8.7 Magnesium 2.4 B-Natriuretic Peptide 03/13/17 07:00 WBC RBC Hgb Hct MCV MCH MCHC RDW Plt Count MPV Neut % (Auto) Lymph % (Auto) Montgomery % (Auto) Eos % (Auto) Baso % (Auto) Neut # (Auto) Lymph # (Auto) Montgomery # (Auto) Eos # (Auto) Baso # (Auto) Total Counted Immature Gran % Nucleated RBC % Immature Gran # Segmented Neutrophils Lymphocytes Monocytes Nucleated RBCs # Platelet Estimate Giant Platelets Immature Plt Fraction Hypochromasia Microcytosis Ovalocytes ABG pH 7.432 ABG pCO2 45.4 ABG pO2 62.5 L ABG HCO3 29.0 H ABG Total CO2 27.5 H ABG O2 Saturation 91.1 L ABG Base Excess 5.3 H FiO2 Sodium Potassium Chloride Carbon Dioxide Anion Gap BUN Creatinine GFR Calculation BUN/Creatinine Ratio Glucose POC Glucose Calculated Osmolality Calcium Magnesium B-Natriuretic Peptide - EKG EKG results: interpreted by me EKG shows: atrial fibrillation
[2017-03-13] MEDS: NEBIVOLOL 10 MG TABLET PO SCH ×2 (09:18→22:06)
[2017-03-13] MEDS: PANTOPRAZOLE 40 MG TABLET PO SCH (09:18)
[2017-03-13] MEDS: ESCITALOPRAM 10 MG TABLET PO SCH (09:18)
[2017-03-13] MEDS: LOSARTAN 50 MG TABLET PO SCH (09:18)
[2017-03-13] MEDS: ASPIRIN EC 81 MG TABLET PO SCH (09:18)
[2017-03-13] MEDS: DILTIAZEM 30 MG TABLET PO SCH ×4 (09:19→22:07)
[2017-03-13] MEDS: cycloSPORINE OPH EMUL 1 VIAL BOTH EYES SCH ×2 (09:19→22:35)
[2017-03-13 11:40] LABS: ABG Base Excess 5.4 MMOL/L (-2.5-2.5); ABG HCO3 30.4 MMOL/L (20-26); ABG Oxygen Saturation 90.6 % (95-100); ABG PCO2 46.4 MM HG (35-48); ABG PH 7.434 (7.35-7.45); ABG PO2 56.1 MM HG (80-95); ABG TCO2 31.8 MMOL/L (23-27)
--- NOTE | 2017-03-13 12:29 | Hospitalist Progress Note ---
Assessment and Plan (1) CAD (coronary artery disease) Status: Chronic Current Visit: No (2) PVD (peripheral vascular disease) Status: Chronic Current Visit: No (3) Aspiration pneumonia Status: Acute Assessment and plan: Continue levofloxacin and zosyn Current Visit: Yes (4) Respiratory failure Status: Acute Assessment and plan: Secondary to aspiration pneumonia Intubated with pulmonary managing vent Current Visit: Yes Hospitalist: Subjective Interval history: No acute events overnight. Patient remains intubated. She is awake and will follow commands. Exam - Constitutional Vitals: Period Temp Pulse Resp BP Sys/Puri Pulse Ox Last 24 Hr 97.4 F-98.5 F 58-77 12-31 110-168/40-89 84-100 General appearance: normal weight, other (et tube in place) - Head Head exam: Present: normocephalic, atraumatic - Eye Eye exam: Present: EOMI Pupils: Present: NICKI - ENT ENT exam: Present: normal exam - Neck Neck exam: Present: normal inspection - Respiratory Respiratory exam: Present: clear to auscultation bilaterally. Absent: rhonchi, wheezes - Cardiovascular Cardiovascular exam: Present: regular rate and rhythm - GI/Abdominal GI/Abdominal exam: Present: normal bowel sounds, soft. Absent: tenderness, rebound - Extremities Exam Extremities exam: Present: normal inspection - Back Exam Back exam: Present: normal inspection - Neurological Exam Neurological exam: Present: alert, oriented X3 - Psychiatric Psychiatric exam: Absent: agitated, anxious - Skin Skin exam: Present: warm, intact Results - Labs CBC & BMP: 03/13/17 04:03 03/13/17 04:03
--- NOTE | 2017-03-13 12:58 | Pulmonology Progress Note ---
Pulmonary - PN: Subj Interval history: This is a 76-year-old female whom I saw in pulmonary consultation on 03/09/2017. My impressions were. #1: Acute respiratory failure requiring intubation and mechanical ventilation #2: Probable aspiration. Nursing staff is suctioning thick tenacious secretions from ET tube. #3: Acute congestive heart failure. #4: Graves' disease #5: Coronary artery disease #6: Peripheral vascular disease #7: Hypertension #8: Dyslipidemia #9: Atrial fibrillation #10: Anemia #11: Azotemia #12: See past history 03/12/2017. Chest x-ray shows resolution of congestive heart failure. ABGs are stable. Lab looks good. Nitrated peptide is decreased to 185. Patient sedated. Asked the nursing staff to let up on his sedation. We will go to a T- tube trial and repeat her blood gases reevaluate at that time. Hopefully we can move along a little faster with her weaning process. 03/13/2017. Chest x-ray this morning looks much better. Congestive heart failure for all practical purposes is resolved. Patient was alert and oriented and appeared strong enough to extubate. Several hours post extubation ABGs on FiO2 of 50% show a pH 7.43, PCO2 is 46.4, PO2 is 56.1 and bicarb is 30.4. Patient appears very comfortable with this oxygenation. Her electrolytes are normal. Creatinine is 0.40 with a BUN of 26. H&H 10.0/32.2. White count 7400 and platelets of 222,000. Magnesium is normal. Nitrated peptide one day ago was 185. Will need to watch her for congestive heart failure. Hypoxemia I suspect is a chronic problem with her. Physical exam. Vital signs. See below Psychiatric. Awake and alert. Can cooperate Neurologic appears to move all fours Chest. Clear Heart lateral PMI Abdomen nondistended Extremities nothing to suggest deep venous thrombophlebitis The remainder the physical exam is negative Plan: 03/09/2007 #1: We will proceed with fiberoptic bronchoscopy today #2: Ventilator weaning protocol #3: Physical therapy protocol #4: Decrease FiO2 to 50% #5: Daily chest x-ray and ABGs while on the ventilator #6: Agree with present antibiotics to cover for possible pneumonia 03/12/2017. 1. See today's note above 2. T-tube trial. Awaiting blood gases. 03/13/2017. 1. See today's note, above #2 extubated 03/13/2017 #3 watch for congestive heart failure 4. Chest x-ray ABGs and lab tomorrow Exam (Progress Note) - Constitutional Vitals: Period Temp Pulse Resp BP Sys/Puri Pulse Ox Last 24 Hr 97.4 F-98.5 F 58-77 12-31 110-168/40-89 84-100 Results - Labs CBC & BMP: 03/13/17 04:03 03/13/17 04:03
[2017-03-13] MEDS: LEVOFLOXACIN INJ 500 MG in PREMIX 1 EACH IV SCH (22:09)
[2017-03-13] MEDS: LATANOPROST 0.005% OPH SOLN 2.5 ML BOTTLE BOTH EYES SCH (22:35)
[2017-03-14] MEDS: ALBUTEROL/IPRATROPIUM 3 ML NEB RESP TX SCH ×4 (01:01→20:43)
[2017-03-14] MEDS: INSULIN LISPRO 100 UNIT/ML SUBCUT SCH ×4 (01:48→18:29)
[2017-03-14] MEDS: PIPERACILLIN/TAZOBACTAM 3,375 MG in SODIUM CHLORIDE 0.9% 100 ML IV SCH ×3 (02:20→17:49)
[2017-03-14 03:53] LABS: ABG Base Excess 6.4 MMOL/L (-2.5-2.5); ABG HCO3 30.7 MMOL/L (20-26); ABG Oxygen Saturation 93.9 % (95-100); ABG PCO2 43.2 MM HG (35-48); ABG PO2 64.8 MM HG (80-95); ABG TCO2 32.1 MMOL/L (23-27); Allen Test Positive
[2017-03-14 05:21] LABS: Basophils % 0.3 % (0.0-0.8); Hematocrit 35.4 VOL% (35.7-47.0); Hemoglobin 11.4 GM/DL (12.0-16.0); Immature Granulocytes % 7.6 %; Immature Granulocytes Absolute 1.18 #; Lymphocytes # 1.7 10*3/uL (1.4-4.0); Lymphocytes % 11.2 % (21.3-54.2); Mean Corpuscular HGB Conc 32.2 GM/DL (32-36); Mean Corpuscular Hemoglobin 29 PG (27-34); Mean Corpuscular Volume 90.8 FL (87-102); Mean Platelet Volume 10.2 FL (9.6-12.0); Monocytes # 1.6 10*3/uL (0.11-0.8); Monocytes % 10.5 % (1.7-12.7); NRBC # 0.03 10*3/uL; Neutrophils # 10.9 10*3/uL (1.4-7.4); Neutrophils % 70.4 % (38.7-73.9); Platelet Count 362 T/CUMM (130-400); Red Cell Distribution Width 14.7 % (9.3-17.3); White Blood Count 15.5 T/CUMM (4-12)
[2017-03-14 05:47] LABS: Band Neutrophils 2 % (0-10); Hypochromasia 1+; Lymphocytes 10 % (20-55); Ovalocytes Slight; Platelet Estimate Adequate; Segmented Neutrophils 76 % (50-85); Total Cells Counted 100
[2017-03-14 05:48] LABS: Giant Platelets Few; Microcytosis Slight
[2017-03-14 05:56] LABS: Calcium 8.7 MG/DL (8.5-10.1); Magnesium 2.3 MG/DL (1.8-2.4); Osmolality,Calculated 283.4 MOS/KG (273-304); Potassium 3.7 MMOL/L (3.5-5.1)
[2017-03-14] MEDS: LEVOTHYROXINE 75 MCG TABLET PO SCH (07:31)
--- NOTE | 2017-03-14 08:41 | XRay Report ---
Portable chest Date: 03/14/2017 Clinical history: Shortness of breath Comparison: 03/13/2017 Technique: Portable AP sitting chest Findings: The heart is larger in size with left subclavian ventricular permanent pacemaker. Removal of the endotracheal tube and nasogastric tube seen entering the stomach. Progressive diffuse parenchymal findings especially at the lung bases with small pleural effusions. Osteopenia with degenerative changes. Postoperative findings in the left neck. Impression: The heart is larger in size with progressive [id number] CHF with small pleural effusions. Left subclavian ventricular permanent pacemaker. Removal of the endotracheal tube with nasogastric tube remaining in the stomach. PROCEDURE INTERPRETED AT [facility] DEPARTMENT OF RADIOLOGY Final Report Signed by: Dr. Kimmy Motnes
[2017-03-14] MEDS: PANTOPRAZOLE 40 MG TABLET PO SCH (09:29)
[2017-03-14] MEDS: DILTIAZEM 30 MG TABLET PO SCH ×4 (09:29→21:43)
[2017-03-14] MEDS: ASPIRIN EC 81 MG TABLET PO SCH (09:29)
[2017-03-14] MEDS: cycloSPORINE OPH EMUL 1 VIAL BOTH EYES SCH ×2 (09:30→21:44)
[2017-03-14] MEDS: ESCITALOPRAM 10 MG TABLET PO SCH (09:30)
[2017-03-14] MEDS: NEBIVOLOL 10 MG TABLET PO SCH ×2 (09:30→21:43)
[2017-03-14] MEDS: LOSARTAN 50 MG TABLET PO SCH (09:30)
[2017-03-14] MEDS ORDERED: FUROSEMIDE 20 MG/2 ML VIAL IV ONE (11:00)
--- NOTE | 2017-03-14 11:12 | Hospitalist Progress Note ---
Assessment and Plan (1) CAD (coronary artery disease) Status: Chronic Current Visit: No (2) PVD (peripheral vascular disease) Status: Chronic Current Visit: No (3) Aspiration pneumonia Status: Acute Assessment and plan: Continue levofloxacin and zosyn Current Visit: Yes (4) Respiratory failure Status: Acute Assessment and plan: Secondary to aspiration pneumonia Intubated with pulmonary managing vent Current Visit: Yes (5) Diastolic CHF, acute on chronic Status: Acute Assessment and plan: CXR with worsening of edema today Will give small dose of lasix and check a bnp today Current Visit: Yes Hospitalist: Subjective Interval history: No acute events overnight. Patient asked where was she this morning. She is oriented to person and year. She reports difficulty catching her breath. Exam - Constitutional Vitals: Period Temp Pulse Resp BP Sys/Puri Pulse Ox Last 24 Hr 97.0 F-98.7 F 59-79 16-24 124-183/54-75 91-99 General appearance: normal weight - Head Head exam: Present: normocephalic, atraumatic - Eye Eye exam: Present: EOMI Pupils: Present: NICKI - ENT ENT exam: Present: normal exam - Neck Neck exam: Present: normal inspection - Respiratory Respiratory exam: Present: clear to auscultation bilaterally. Absent: rhonchi, wheezes - Cardiovascular Cardiovascular exam: Present: regular rate and rhythm - GI/Abdominal GI/Abdominal exam: Present: normal bowel sounds, soft. Absent: tenderness, rebound - Extremities Exam Extremities exam: Present: normal inspection - Back Exam Back exam: Present: normal inspection - Neurological Exam Neurological exam: Present: alert (and oriented x2) - Psychiatric Psychiatric exam: Present: normal affect, normal mood - Skin Skin exam: Present: warm, intact Results - Labs CBC & BMP: 03/14/17 04:53 03/14/17 04:53
[2017-03-14] MEDS: ENOXAPARIN 60 MG/0.6 ML SYRINGE SUBCUT SCH ×2 (11:15→22:06)
--- NOTE | 2017-03-14 12:04 | Pulmonology Progress Note ---
Exam (Progress Note) - Constitutional Vitals: Period Temp Pulse Resp BP Sys/Puri Pulse Ox Last 24 Hr 97.4 F-98.7 F 59-79 16-24 124-183/54-75 91-99 Results - Labs CBC & BMP: 03/14/17 04:53 03/14/17 04:53
[2017-03-14] MEDS: methylPREDNISolone SOD SUC 40 MG/1 ML VIAL IV SCH ×2 (12:31→21:44)
[2017-03-14 14:33] LABS: Bilirubin,Urine Negative (Negative); Blood, Urine NEGATIVE (Negative); Glucose,Urine (UA) Negative (Negative); Ketones,Urine Negative (Negative); Mucus,Urine Occasional /LPF (Occasional); Nitrite,Urine Negative (Negative); Protein,Urine Negative; RBC,Urine <1 /HPF (0-4); Squamous Epithelial Cell,Urine Occasional /HPF (0-10); Urine Color Colorless (Yellow); Urine Specific Gravity 1.005 (1.001-1.035)
[2017-03-14 14:35] LABS: Apearance,Urine CLEAR (Clear); Urine Urobilinogen 0.2 EU/DL (0.2-1.0)
[2017-03-14] MEDS: FUROSEMIDE 20 MG/2 ML VIAL IV SCH (17:46)
--- NOTE | 2017-03-14 18:23 | Pulmonology Progress Note ---
Pulmonary - PN: Subj Interval history: This is a 76-year-old female whom I saw in pulmonary consultation on 03/09/2017. My impressions were. #1: Acute respiratory failure requiring intubation and mechanical ventilation #2: Probable aspiration. Nursing staff is suctioning thick tenacious secretions from ET tube. #3: Acute congestive heart failure. #4: Graves' disease #5: Coronary artery disease #6: Peripheral vascular disease #7: Hypertension #8: Dyslipidemia #9: Atrial fibrillation #10: Anemia #11: Azotemia #12: See past history 03/12/2017. Chest x-ray shows resolution of congestive heart failure. ABGs are stable. Lab looks good. Nitrated peptide is decreased to 185. Patient sedated. Asked the nursing staff to let up on his sedation. We will go to a T- tube trial and repeat her blood gases reevaluate at that time. Hopefully we can move along a little faster with her weaning process. 03/13/2017. Chest x-ray this morning looks much better. Congestive heart failure for all practical purposes is resolved. Patient was alert and oriented and appeared strong enough to extubate. Several hours post extubation ABGs on FiO2 of 50% show a pH 7.43, PCO2 is 46.4, PO2 is 56.1 and bicarb is 30.4. Patient appears very comfortable with this oxygenation. Her electrolytes are normal. Creatinine is 0.40 with a BUN of 26. H&H 10.0/32.2. White count 7400 and platelets of 222,000. Magnesium is normal. nitrated peptide one day ago was 185. Will need to watch her for congestive heart failure. Hypoxemia I suspect is a chronic problem with her. 03/14/2017. This patient was seen around 9:00 this morning. She was extubated is done well since that time. Chest x-ray this morning shows cardiomegaly. Her interstitial markings are top normal. We have to watch closely for recurrent congestive heart failure. ABGs on FiO2 32% show a pH 7.47 , PCO2 43.2, PO2 64.8 and a bicarb of 30.7. Electrolytes are normal. Creatinine 0.40 with a BUN of 20. White count is 15,500. H&H 11.4/35.4. Platelets are 362,000. Natruretic peptide is 345. Cardiology has signed off of this case. Will check chest x-ray and ABGs tomorrow morning. She appears to have made very good improvement at this point. Physical exam. Vital signs. See below Psychiatric. Awake and alert. Can cooperate Neurologic appears to move all fours Chest. Clear Heart lateral PMI Abdomen nondistended Extremities nothing to suggest deep venous thrombophlebitis The remainder the physical exam is negative Plan: 03/09/2007 #1: We will proceed with fiberoptic bronchoscopy today #2: Ventilator weaning protocol #3: Physical therapy protocol #4: Decrease FiO2 to 50% #5: Daily chest x-ray and ABGs while on the ventilator #6: Agree with present antibiotics to cover for possible pneumonia 03/12/2017. 1. See today's note above 2. T-tube trial. Awaiting blood gases. 03/13/2017. 1. See today's note, above #2 extubated 03/13/2017 #3 watch for congestive heart failure 4. Chest x-ray ABGs and lab tomorrow 03/14/2017. 1. See today's note, above. 2. Doing well post extubation on 03/13/2017 3. Engraving Press Operator signed off. 4. Chest x-ray ABGs in the morning. 5. Watch for volume overload. Exam (Progress Note) - Constitutional Vitals: Period Temp Pulse Resp BP Sys/Puri Pulse Ox Last 24 Hr 97.4 F-98.7 F 59-86 18-23 142-183/54-75 91-99 Results - Labs CBC & BMP: 03/14/17 04:53 03/14/17 04:53
[2017-03-14] MEDS: LATANOPROST 0.005% OPH SOLN 2.5 ML BOTTLE BOTH EYES SCH (21:44)
[2017-03-14] MEDS: LEVOFLOXACIN INJ 500 MG in PREMIX 1 EACH IV SCH (21:44)
[2017-03-15] MEDS: INSULIN LISPRO 100 UNIT/ML SUBCUT SCH ×4 (00:14→18:26)
[2017-03-15] MEDS: PIPERACILLIN/TAZOBACTAM 3,375 MG in SODIUM CHLORIDE 0.9% 100 ML IV SCH ×3 (00:15→17:56)
[2017-03-15] MEDS: ALBUTEROL/IPRATROPIUM 3 ML NEB RESP TX SCH ×4 (00:52→19:40)
[2017-03-15 04:13] LABS: ABG Base Excess 9.9 MMOL/L (-2.5-2.5); ABG HCO3 33.9 MMOL/L (20-26); ABG Oxygen Saturation 93.8 % (95-100); ABG PCO2 43.4 MM HG (35-48); ABG PH 7.511 (7.35-7.45); ABG PO2 62.6 MM HG (80-95); ABG TCO2 35.3 MMOL/L (23-27)
[2017-03-15 06:35] LABS: Calcium 8.8 MG/DL (8.5-10.1); Magnesium 2.4 MG/DL (1.8-2.4); Osmolality,Calculated 282.5 MOS/KG (273-304); Potassium 3.9 MMOL/L (3.5-5.1)
[2017-03-15] MEDS: LEVOTHYROXINE 75 MCG TABLET PO SCH (06:40)
--- NOTE | 2017-03-15 07:57 | XRay Report ---
Portable chest Date: 03/15/2017 Clinical history: CHF, shortness of breath Comparison: 03/14/2017 Technique: Portable AP sitting chest Findings: The heart is slightly smaller in size with left subclavian ventricular permanent pacemaker. Nasogastric tube seen entering the stomach. Decreased parenchymal findings with smaller pleural effusions. Stable mediastinum. Osteopenia with degenerative changes. Postoperative findings in the left neck. Impression: Improved CHF with smaller pleural effusions. Left subclavian ventricular permanent pacemaker. Nasogastric tube in satisfactory position. PROCEDURE INTERPRETED AT [facility] DEPARTMENT OF RADIOLOGY Final Report Signed by: Dr. Kimmy Montes
[2017-03-15] MEDS: DILTIAZEM 30 MG TABLET PO SCH ×4 (10:11→21:51)
[2017-03-15] MEDS: NEBIVOLOL 10 MG TABLET PO SCH ×2 (10:12→21:52)
[2017-03-15] MEDS: FUROSEMIDE 20 MG/2 ML VIAL IV SCH ×2 (10:12→17:56)
[2017-03-15] MEDS: LOSARTAN 50 MG TABLET PO SCH (10:12)
[2017-03-15] MEDS: ASPIRIN EC 81 MG TABLET PO SCH (10:12)
[2017-03-15] MEDS: methylPREDNISolone SOD SUC 40 MG/1 ML VIAL IV SCH (10:12)
[2017-03-15] MEDS: ESCITALOPRAM 10 MG TABLET PO SCH (10:12)
[2017-03-15] MEDS: cycloSPORINE OPH EMUL 1 VIAL BOTH EYES SCH ×2 (10:17→22:42)
[2017-03-15] MEDS: PANTOPRAZOLE 40 MG TABLET PO SCH (10:17)
--- NOTE | 2017-03-15 10:50 | Pulmonology Progress Note ---
Pulmonary - PN: Subj Interval history: This is a 76-year-old female whom I saw in pulmonary consultation on 03/09/2017. My impressions were. #1: Acute respiratory failure requiring intubation and mechanical ventilation #2: Probable aspiration. Nursing staff is suctioning thick tenacious secretions from ET tube. #3: Acute congestive heart failure. #4: Graves' disease #5: Coronary artery disease #6: Peripheral vascular disease #7: Hypertension #8: Dyslipidemia #9: Atrial fibrillation #10: Anemia #11: Azotemia #12: See past history 03/12/2017. Chest x-ray shows resolution of congestive heart failure. ABGs are stable. Lab looks good. Nitrated peptide is decreased to 185. Patient sedated. Asked the nursing staff to let up on his sedation. We will go to a T- tube trial and repeat her blood gases reevaluate at that time. Hopefully we can move along a little faster with her weaning process. 03/13/2017. Chest x-ray this morning looks much better. Congestive heart failure for all practical purposes is resolved. Patient was alert and oriented and appeared strong enough to extubate. Several hours post extubation ABGs on FiO2 of 50% show a pH 7.43, PCO2 is 46.4, PO2 is 56.1 and bicarb is 30.4. Patient appears very comfortable with this oxygenation. Her electrolytes are normal. Creatinine is 0.40 with a BUN of 26. H&H 10.0/32.2. White count 7400 and platelets of 222,000. Magnesium is normal. nitrated peptide one day ago was 185. Will need to watch her for congestive heart failure. Hypoxemia I suspect is a chronic problem with her. 03/14/2017. This patient was seen around 9:00 this morning. She was extubated is done well since that time. Chest x-ray this morning shows cardiomegaly. Her interstitial markings are top normal. We have to watch closely for recurrent congestive heart failure. ABGs on FiO2 32% show a pH 7.47 , PCO2 43.2, PO2 64.8 and a bicarb of 30.7. Electrolytes are normal. Creatinine 0.40 with a BUN of 20. White count is 15,500. H&H 11.4/35.4. Platelets are 362,000. Natruretic peptide is 345. Cardiology has signed off of this case. Will check chest x-ray and ABGs tomorrow morning. She appears to have made very good improvement at this point. 03/15/2017. In general this patient looks much better today. Her chest x-ray shows resolution of her congestive heart failure. There are no infiltrates. ABGs on FiO2 32% show pH 7.51, PCO2 43.4, PO2 of 62.6 and a bicarb 33.9. Electrolytes are normal. Creatinine is 0.50 BUN is 23. Nitrated peptide remains mildly elevated 224. All cultures have been negative. The patient's on methylprednisolone 40 mg IV push twice a day. This will be changed to prednisone 20 mg daily I would suggest 20 mg daily for 10 days 10 mg daily for 10 days then 10 mg every other day for 10 doses. I would also suggest that this patient not go back to smoking. This patient is stable from a pulmonary standpoint. I will sign off. Reconsult as needed Physical exam. Vital signs. See below Psychiatric. Awake and alert. Can cooperate Neurologic appears to move all fours Chest. Clear Heart lateral PMI Abdomen nondistended Extremities nothing to suggest deep venous thrombophlebitis The remainder the physical exam is negative Plan: 03/09/2007 #1: We will proceed with fiberoptic bronchoscopy today #2: Ventilator weaning protocol #3: Physical therapy protocol #4: Decrease FiO2 to 50% #5: Daily chest x-ray and ABGs while on the ventilator #6: Agree with present antibiotics to cover for possible pneumonia 03/12/2017. 1. See today's note above 2. T-tube trial. Awaiting blood gases. 03/13/2017. 1. See today's note, above #2 extubated 03/13/2017 #3 watch for congestive heart failure 4. Chest x-ray ABGs and lab tomorrow 03/14/2017. 1. See today's note, above. 2. Doing well post extubation on 03/13/2017 3. Body Former signed off. 4. Chest x-ray ABGs in the morning. 5. Watch for volume overload. 03/15/2017. 1. See today's note, above. 2. Convert Solu-Medrol to prednisone 20 mg daily for 10 days 10 mg daily for 10 days and 10 mg every other day for 10 doses. 3. Antibiotics can probably be stopped in the next 2 or 3 days. #4. This patient confirmed today that she is a patient of Dr. Matthew Pickett . After discharge she should be referred back to him and I would suggest 2 weeks after discharge. 5. I will sign off. Reconsult as needed. Exam (Progress Note) - Constitutional Vitals: Period Temp Pulse Resp BP Sys/Puri Pulse Ox Last 24 Hr 97 F-98.7 F 57-91 10-23 96-161/43-80 91-99 Results - Labs CBC & BMP: 03/14/17 04:53 03/15/17 05:21
--- NOTE | 2017-03-15 12:57 | Hospitalist Progress Note ---
Assessment and Plan (1) CAD (coronary artery disease) Status: Chronic Current Visit: No (2) PVD (peripheral vascular disease) Status: Chronic Current Visit: No (3) Aspiration pneumonia Status: Acute Assessment and plan: Continue levofloxacin and zosyn Current Visit: Yes (4) Respiratory failure Status: Acute Assessment and plan: Secondary to aspiration pneumonia Extubated 03/12/17 Pulmonary signed off Current Visit: Yes (5) Diastolic CHF, acute on chronic Status: Acute Assessment and plan: CXR today with improvement Continue low dose IV lasix today BNP improving Current Visit: Yes Hospitalist: Subjective Interval history: No acute events overnight. Patient reports that she feels much better today. Her breathing is improved. Will transfer patient to the floor today. Exam - Constitutional Vitals: Period Temp Pulse Resp BP Sys/Puri Pulse Ox Last 24 Hr 97 F-98.7 F 57-101 10-23 96-165/43-80 91-99 General appearance: under weight - Head Head exam: Present: normocephalic, atraumatic - Eye Eye exam: Present: EOMI Pupils: Present: NICKI - ENT ENT exam: Present: normal exam - Neck Neck exam: Present: normal inspection - Respiratory Respiratory exam: Present: clear to auscultation bilaterally. Absent: rhonchi, wheezes - Cardiovascular Cardiovascular exam: Present: regular rate and rhythm - GI/Abdominal GI/Abdominal exam: Present: normal bowel sounds, soft. Absent: tenderness, rebound - Extremities Exam Extremities exam: Present: normal inspection - Back Exam Back exam: Present: normal inspection - Neurological Exam Neurological exam: Present: alert, oriented X3 - Psychiatric Psychiatric exam: Present: normal affect, normal mood - Skin Skin exam: Present: warm, intact Results - Labs CBC & BMP: 03/14/17 04:53 03/15/17 05:21
[2017-03-15] MEDS: predniSONE 20 MG TABLET PO SCH (13:26)
[2017-03-15] MEDS: ENOXAPARIN 60 MG/0.6 ML SYRINGE SUBCUT SCH ×2 (13:26→23:40)
[2017-03-15] MEDS: POTASSIUM CHLORIDE RIDER 10 MEQ in PREMIX 1 EACH IV PRN (13:28)
[2017-03-15] MEDS: LEVOFLOXACIN INJ 500 MG in PREMIX 1 EACH IV SCH (21:55)
[2017-03-16] MEDS: ALBUTEROL/IPRATROPIUM 3 ML NEB RESP TX SCH ×4 (00:33→18:55)
[2017-03-16] MEDS: LATANOPROST 0.005% OPH SOLN 2.5 ML BOTTLE BOTH EYES SCH ×2 (01:57→21:18)
[2017-03-16] MEDS: INSULIN LISPRO 100 UNIT/ML SUBCUT SCH ×4 (01:59→18:09)
[2017-03-16] MEDS: PIPERACILLIN/TAZOBACTAM 3,375 MG in SODIUM CHLORIDE 0.9% 100 ML IV SCH ×3 (02:17→16:39)
[2017-03-16 06:03] LABS: Basophils % 0.2 % (0.0-0.8); Hemoglobin 11.1 GM/DL (12.0-16.0); Immature Granulocytes % 4.6 %; Lymphocytes # 1.4 10*3/uL (1.4-4.0); Lymphocytes % 7.7 % (21.3-54.2); Mean Corpuscular HGB Conc 32.6 GM/DL (32-36); Mean Corpuscular Hemoglobin 29 PG (27-34); Mean Corpuscular Volume 89.7 FL (87-102); Mean Platelet Volume 10.3 FL (9.6-12.0); Monocytes % 5.8 % (1.7-12.7); Neutrophils # 14.3 10*3/uL (1.4-7.4); Neutrophils % 81.7 % (38.7-73.9); Platelet Count 506 T/CUMM (130-400); Red Blood Count 3.79 MC/CUMM (3.8-5.5); Red Cell Distribution Width 15.3 % (9.3-17.3); White Blood Count 17.5 T/CUMM (4-12)
[2017-03-16 06:25] LABS: Calcium 9.1 MG/DL (8.5-10.1); Magnesium 2.4 MG/DL (1.8-2.4); Osmolality,Calculated 282.5 MOS/KG (273-304); Potassium 3.8 MMOL/L (3.5-5.1)
[2017-03-16 06:46] LABS: Giant Platelets Few; Hypochromasia 1+; Lymphocytes 7 % (20-55); Microcytosis Slight; Ovalocytes Slight; Platelet Estimate Increased; Segmented Neutrophils 89 % (50-85); Total Cells Counted 100
[2017-03-16] MEDS: FUROSEMIDE 20 MG/2 ML VIAL IV SCH ×2 (08:59→16:38)
[2017-03-16] MEDS: DILTIAZEM 30 MG TABLET PO SCH ×4 (09:05→21:17)
[2017-03-16] MEDS: predniSONE 20 MG TABLET PO SCH (09:05)
[2017-03-16] MEDS: ASPIRIN EC 81 MG TABLET PO SCH (09:06)
[2017-03-16] MEDS: NEBIVOLOL 10 MG TABLET PO SCH ×2 (09:06→21:17)
[2017-03-16] MEDS: PANTOPRAZOLE 40 MG TABLET PO SCH (09:06)
[2017-03-16] MEDS: ESCITALOPRAM 10 MG TABLET PO SCH (09:06)
[2017-03-16] MEDS: LOSARTAN 50 MG TABLET PO SCH (09:06)
[2017-03-16] MEDS: LEVOTHYROXINE 75 MCG TABLET PO SCH (09:06)
[2017-03-16] MEDS: ENOXAPARIN 60 MG/0.6 ML SYRINGE SUBCUT SCH ×2 (09:09→21:17)
[2017-03-16] MEDS: cycloSPORINE OPH EMUL 1 VIAL BOTH EYES SCH ×2 (10:05→21:17)
[2017-03-16] MEDS: ANORO ELLIPTA (Umeclidinium Brm/Vilanterol Tr) 1 PUFF INH SCH (10:06)
[2017-03-16] MEDS: POTASSIUM CHLORIDE RIDER 10 MEQ in PREMIX 1 EACH IV PRN ×2 (14:24→16:03)
--- NOTE | 2017-03-16 15:39 | Hospitalist Progress Note ---
Assessment and Plan (1) PVD (peripheral vascular disease) Status: Chronic Current Visit: Yes (2) Atrial fibrillation Status: Chronic Assessment and plan: Continue anticoagulation rate is controlled Current Visit: No (3) Acute exacerbation of chronic obstructive airways disease Status: Acute Assessment and plan: Continue current therapies patient is improving Current Visit: Yes (4) Diastolic CHF, acute on chronic Status: Acute Assessment and plan: Avoid overdiuresis. Patient should be fed by mouth now. There is recommendations from speech therapy on hold. In terms of choice of consistency. Soft diet will be best for her. Current Visit: Yes (5) Dysphagia Status: Acute Assessment and plan: Recommendations from speech therapy are noted. Current Visit: Yes Hospitalist: Subjective Interval history: Patient has been seen interviewed and examined and chart has been reviewed. Patient admitted to the hospital with respiratory distress decompensated diastolic congestive heart failure recent echocardiogram shows a preserved left ventricle with EF around 55-60 but profound diastolic dysfunction. Patient is on DOAC for atrial fibrillation no evidence of GI bleed in the past. Does have history of heart disease and cardiology is on the case Exam - Constitutional Vitals: Period Temp Pulse Resp BP Sys/Puri Pulse Ox Last 24 Hr 96.7 F-97.8 F 58-93 12-20 117-149/61-82 90-99 General appearance: normal weight, other (Looks rather frail) - Head Head exam: Present: normocephalic, atraumatic - Eye Eye exam: Present: EOMI Pupils: Present: NICKI - ENT ENT exam: Present: other (Patient has not had an NG tube in for which was being fed. She ate some soft food today we are going to discontinue this NG tube recommendations from speech evaluation are noted) - Neck Neck exam: Present: normal inspection - Respiratory Respiratory exam: Present: clear to auscultation bilaterally - Cardiovascular Cardiovascular exam: Present: regular rate and rhythm - GI/Abdominal GI/Abdominal exam: Present: normal bowel sounds, soft - Extremities Exam Extremities exam: Present: full ROM, other (Generalized weakness; however) - Neurological Exam Neurological exam: Present: alert, oriented X3, CN II-XII intact - Psychiatric Psychiatric exam: Present: normal affect, normal mood - Skin Skin exam: Present: normal color, warm, dry, other (With cutis laxa) Results - Labs CBC & BMP: 03/16/17 05:15 03/16/17 05:15 Lab Results: I have reviewed the past 24 hour labs (Noted elevated white count)
[2017-03-16] MEDS: LEVOFLOXACIN INJ 500 MG in PREMIX 1 EACH IV SCH (21:16)
[2017-03-17] MEDS: PIPERACILLIN/TAZOBACTAM 3,375 MG in SODIUM CHLORIDE 0.9% 100 ML IV SCH ×2 (00:10→09:46)
[2017-03-17] MEDS: ALBUTEROL/IPRATROPIUM 3 ML NEB RESP TX SCH ×2 (00:38→07:11)
[2017-03-17] MEDS: LEVOTHYROXINE 75 MCG TABLET PO SCH (06:33)
[2017-03-17] MEDS: FUROSEMIDE 20 MG/2 ML VIAL IV SCH (09:46)
[2017-03-17] MEDS: ENOXAPARIN 60 MG/0.6 ML SYRINGE SUBCUT SCH (09:50)
[2017-03-17] MEDS: DILTIAZEM 30 MG TABLET PO SCH (09:52)
[2017-03-17] MEDS: ESCITALOPRAM 10 MG TABLET PO SCH (09:52)
[2017-03-17] MEDS: PANTOPRAZOLE 40 MG TABLET PO SCH (09:53)
[2017-03-17] MEDS: predniSONE 20 MG TABLET PO SCH (09:53)
[2017-03-17] MEDS: ASPIRIN EC 81 MG TABLET PO SCH (09:54)
[2017-03-17] MEDS: NEBIVOLOL 10 MG TABLET PO SCH (09:54)
[2017-03-17] MEDS: LOSARTAN 50 MG TABLET PO SCH (09:54)
[2017-03-17] MEDS: ANORO ELLIPTA (Umeclidinium Brm/Vilanterol Tr) 1 PUFF INH SCH (09:59)
[2017-03-17] MEDS: cycloSPORINE OPH EMUL 1 VIAL BOTH EYES SCH (09:59)
--- NOTE | 2017-03-17 10:50 | Discharge Summary ---
Diagnosis - Discharge Diagnosis (1) PVD (peripheral vascular disease) Status: Chronic (2) Atrial fibrillation Status: Chronic (3) Acute exacerbation of chronic obstructive airways disease Status: Acute (4) Diastolic CHF, acute on chronic Status: Acute (5) Dysphagia Status: Acute Specialty Discharge - Follow Up or Referrals Discharge Plan - Discharge Data Disposition: Home Health Service Condition at Discharge: Stable Discharge Diet: heart healthy Activity: increase activity as tolerated Hygiene: may tub bathe, other (With assistance as needed.) Weight Bearing at Discharge: weight bear as tolerated Driving: not until seen by doctor Contact your physician if you experience:: fever over 101, Nausea/Vomiting, Shortness of breath - Discharge Medications New Nicotine 21 mg/24 Hr Patch [Nicoderm CQ 21 mg/24 hr Patch] 1 patch TRANSDERM DAILY PRN #14 patch PRN Reason: Nicotine Cravings predniSONE TAB [PredniSONE] 20 mg PO DAILY #30 tablet Continue dilTIAZem HCl [Diltiazem ER (24 hr)] 120 mg PO QAM Furosemide 20 mg PO BID Aspirin EC Tab 81 mg PO QAM Dabigatran [Pradaxa] 150 mg PO BID cycloSPORINE OPH EMUL [Restasis] 1 drop BOTH EYES Q12HR Latanoprost 0.005% Oph Soln [Xalatan 0.005% Oph Soln] 1 drop BOTH EYES BEDTIME Umeclidinium Brm/Vilanterol Tr [Anoro Ellipta] 1 puff INH QAM Escitalopram [Lexapro] 10 mg PO QAM Levothyroxine Tab [Synthroid Tab] 75 mcg PO DAILY@0700 Losartan Potassium 50 mg PO QAM Nebivolol [Bystolic] 10 mg PO BID Omeprazole Magnesium [Prilosec Otc] 20 mg PO BID PRN PRN Reason: GASTRIC ACID Amlodipine Besylate 10 mg PO QAM - Follow Up or Referral - Forms/Instructions Instructions: Heart Failure (DC) Exam - Constitutional Vitals: Period Temp Pulse Resp BP Sys/Puri Pulse Ox Last 24 Hr 97.0 F-97.8 F 18-72 17-20 119-142/50-62 90-98 General appearance: normal weight - Head Head exam: Present: normocephalic, atraumatic - Eye Eye exam: Present: EOMI Pupils: Present: NICKI - ENT ENT exam: Present: normal exam - Neck Neck exam: Present: normal inspection - Respiratory Respiratory exam: Present: clear to auscultation bilaterally, other (Basilar rales no respiratory distress) - Cardiovascular Cardiovascular exam: Present: regular rate and rhythm - GI/Abdominal GI/Abdominal exam: Present: normal bowel sounds, soft - Extremities Exam Extremities exam: Present: full ROM, other (Generalized weakness) - Neurological Exam Neurological exam: Present: alert, oriented X3, CN II-XII intact - Psychiatric Psychiatric exam: Present: normal affect, normal mood - Skin Skin exam: Present: normal color, warm, dry Discharge Results Procedures and tests throughout hospitalization: Pending Orders 03/09/17 11:00 Fungal Culture w/ Prep Stat 03/19/17 04:00 Phosphorous Routine Prealbumin Routine Labs on day of discharge: Labs from last 24 hours 03/16/17 03/16/17 18:02 11:44 POC Glucose 179 H 164 H Preliminary micro results at discharge 03/09/17 11:00 Fungal Culture - Preliminary Bronchial Pierce Lavage No Fungus isolated at 1 week DS: Provider Date of admission: 03/07/17 14:32 Primary care physician: Nithya Coles M.D. Attending physician on admission: Jeff Leo MD Consults: 03/08/17 13:51 Consult to Physician [CONS] Routine Comment: cardiomyopathy, hypoxia Consulting Provider: Danica Velazquez Person Notified: Amelia Date Notified: 03/08/17 Time Notified: 14:30 03/08/17 19:04 Consult to Physician [CONS] Routine Comment: vent product management consultant Provider: Rivas Steel When should Consulting Provider be notified: Now 03/09/17 09:34 Consult to Dietitian [CONS] Routine Reason for Dietitian: TF-Initiate/Manage 03/14/17 10:57 Consult to Speech Therapy [CONS] Routine Reason for Speech Therapy: Bedside Swallow Eval Discharging clinician: Aquilino Ga MD
[2017-03-17 11:41] VITALS: BP 110/53
== END 2017-03-17 12:19 | disposition home health service (06) | DRG 207 ==
LOC: EDUNIT# → N.ED 11:33 → SUATTDRO 14:32 → N.EDINP 14:32 → N.TELES 15:23 → N.CC 03-08 18:29 → N.2E 03-15 16:13
PROVIDERS: ADMIT Internal Medicine; ATTEND Internal Medicine Infectious Disease

== ENCOUNTER 2018-05-10 15:19 | Inpatient (IN) ==
[2018-05-10] MEDS ORDERED: ONDANSETRON 4 MG/2 ML VIAL IV STA (15:41)
[2018-05-10] MEDS ORDERED: FUROSEMIDE 100 MG/10 ML VIAL IV STA (15:41)
[2018-05-10] MEDS ORDERED: ALBUTEROL/IPRATROPIUM 3 ML NEB RESP TX STA (15:41)
[2018-05-10 16:09] LABS: Apearance,Urine CLEAR (Clear); Bilirubin,Urine Negative (Negative); Blood, Urine Negative (Negative); Glucose,Urine (UA) Negative (Negative); Ketones,Urine Negative (Negative); Mucus,Urine Occasional /LPF (Occasional); Nitrite,Urine Positive (Negative); Protein,Urine Negative; RBC,Urine <1 /HPF (0-4); Squamous Epithelial Cell,Urine Occasional /HPF (0-10); Urine Color Yellow (Yellow); Urine Specific Gravity 1.006 (1.001-1.035); Urine Urobilinogen < 2.0 EU/DL (0.2-1.0); WBC,Urine 1 /HPF (0-6)
[2018-05-10 16:16] LABS: Barbiturates Screen,Urine Negative (Negative); Benzodiazepines Screen,Urine Negative (Negative); Cannabinoid Screen,Urine Negative (Negative); Opiate Screen,Urine Negative (Negative); Phencyclidine Screen,Urine Negative (Negative)
[2018-05-10 16:38] LABS: Eosinophils # 0.1 10*3/uL (0.0-0.87); Eosinophils % 1.6 % (0.00-10.9); Hematocrit 34.1 VOL% (35.7-47.0); Hemoglobin 10.7 GM/DL (12.0-16.0); Immature Granulocytes % 0.3 %; Immature Granulocytes Absolute 0.02 #; Lymphocytes # 2.2 10*3/uL (1.4-4.0); Mean Corpuscular HGB Conc 31.4 GM/DL (32-36); Mean Corpuscular Hemoglobin 31 PG (27-34); Mean Corpuscular Volume 98.6 FL (87-102); Mean Platelet Volume 9.9 FL (9.6-12.0); Monocytes # 0.7 10*3/uL (0.11-0.8); Neutrophils # 4.5 10*3/uL (1.4-7.4); Neutrophils % 60.1 % (38.7-73.9); Platelet Count 330 T/CUMM (130-400); Red Blood Count 3.46 MC/CUMM (3.8-5.5); Red Cell Distribution Width 13.6 % (9.3-17.3); White Blood Count 7.4 T/CUMM (4-12)
[2018-05-10 16:48] LABS: INR 1.2; PT Patient Result 12.2 SECS; Partial Thromboplastin Time 30.2 SECS (0-40)
[2018-05-10 17:40] LABS: Alanine Aminotransferase 25 U/L (13-56); Albumin 3.3 G/DL (3.4-5.0); Alkaline Phosphatase 112 U/L (45-117); Aspartate Amino Transferase 24 U/L (0-37); Bilirubin,Total < 0.39 MG/DL (0.2-1.0); Blood Urea Nitrogen 20 MG/DL (7-18); Calcium 8.4 MG/DL (8.5-10.1); Glucose 102 MG/DL (74-106); Osmolality,Calculated 285.1 MOS/KG (273-304); Potassium 3.2 MMOL/L (3.5-5.1); Sodium 142 MMOL/L (136-145); Total Protein 7.2 G/DL (6.4-8.3)
[2018-05-10 17:41] LABS: Troponin I 0.345 NG/ML (0.00-0.045)
[2018-05-10] MEDS ORDERED: PANTOPRAZOLE 40 MG TABLET PO PRN (18:13)
[2018-05-10] MEDS ORDERED: NITROGLYCERIN SL 0.4 MG TABLET SL PRN (18:13)
[2018-05-10] MEDS ORDERED: ACETAMINOPHEN 325 MG TABLET PO PRN ×2 (18:15→18:16)
[2018-05-10] MEDS ORDERED: MAGNESIUM SULF RIDER 2 GM in PREMIX 1 EACH IV PRN (18:15)
[2018-05-10] MEDS ORDERED: MAGNESIUM SULF RIDER 4 GM in PREMIX 1 EACH IV PRN (18:15)
[2018-05-10] MEDS ORDERED: ONDANSETRON 4 MG/2 ML VIAL IV PRN ×2 (18:15→18:16)
[2018-05-10] MEDS ORDERED: POTASSIUM CHLORIDE 20 MEQ TABLET PO STA (18:18)
[2018-05-10] MEDS: ALBUTEROL/IPRATROPIUM 3 ML NEB RESP TX SCH (21:07)
[2018-05-10] MEDS: DABIGATRAN 150 MG CAPSULE PO SCH (21:58)
[2018-05-10] MEDS: cycloSPORINE OPH EMUL 1 VIAL BOTH EYES SCH (21:58)
[2018-05-10] MEDS: LATANOPROST 0.005% OPH SOLN 2.5 ML BOTTLE BOTH EYES SCH (21:58)
[2018-05-10] MEDS: FUROSEMIDE 40 MG/4 ML VIAL IV SCH (23:35)
[2018-05-11 01:02] LABS: Eosinophils # 0.1 10*3/uL (0.0-0.87); Eosinophils % 1.5 % (0.00-10.9); Hemoglobin 10.3 GM/DL (12.0-16.0); Immature Granulocytes % 0.4 %; Immature Granulocytes Absolute 0.03 #; Lymphocytes # 1.8 10*3/uL (1.4-4.0); Lymphocytes % 24.5 % (21.3-54.2); Mean Corpuscular HGB Conc 31.2 GM/DL (32-36); Mean Corpuscular Hemoglobin 31 PG (27-34); Mean Corpuscular Volume 98.2 FL (87-102); Mean Platelet Volume 9.5 FL (9.6-12.0); Monocytes # 0.7 10*3/uL (0.11-0.8); Monocytes % 10.1 % (1.7-12.7); Neutrophils # 4.7 10*3/uL (1.4-7.4); Neutrophils % 63.5 % (38.7-73.9); Platelet Count 320 T/CUMM (130-400); Red Blood Count 3.36 MC/CUMM (3.8-5.5); Red Cell Distribution Width 13.4 % (9.3-17.3); White Blood Count 7.3 T/CUMM (4-12)
[2018-05-11 01:26] LABS: Calcium 8.6 MG/DL (8.5-10.1); Osmolality,Calculated 284.1 MOS/KG (273-304); Potassium 3.7 MMOL/L (3.5-5.1); Risk Ratio 4.81
[2018-05-11 01:32] LABS: Thyroid Stimulating Hormone 8.19 uIU/ml (0.358-3.74)
[2018-05-11] MEDS: FUROSEMIDE 40 MG/4 ML VIAL IV SCH ×2 (05:06→21:39)
[2018-05-11] MEDS: LEVOTHYROXINE 75 MCG TABLET PO SCH (06:13)
[2018-05-11 07:20] LABS: Free T4 (Free Thyroxine) 1.2 NG/DL (0.76-1.46)
[2018-05-11] MEDS: ALBUTEROL/IPRATROPIUM 3 ML NEB RESP TX SCH ×4 (08:05→19:15)
[2018-05-11] MEDS ORDERED: Umeclidinium Brm/Vilanterol Tr [Anoro Ellipta] INH SCH (09:00)
[2018-05-11] MEDS ORDERED: PANTOPRAZOLE 40 MG TABLET PO SCH (09:00)
[2018-05-11] MEDS: ESCITALOPRAM 10 MG TABLET PO SCH (09:05)
[2018-05-11] MEDS: ISOSORBIDE MONONITRATE 30 MG TABLET PO SCH (09:05)
[2018-05-11] MEDS: DILTIAZEM CD 180 MG CAPSULE PO SCH (09:05)
[2018-05-11] MEDS: ASPIRIN EC 81 MG TABLET PO SCH (09:06)
[2018-05-11] MEDS: DABIGATRAN 150 MG CAPSULE PO SCH ×2 (09:06→21:34)
[2018-05-11] MEDS: cycloSPORINE OPH EMUL 1 VIAL BOTH EYES SCH ×2 (09:06→21:34)
[2018-05-11] MEDS ORDERED: cefTRIAXone 1,000 MG in SYRINGE 1 EACH IV SCH (13:30)
[2018-05-11] MEDS: LATANOPROST 0.005% OPH SOLN 2.5 ML BOTTLE BOTH EYES SCH (21:33)
[2018-05-12 02:15] LABS: Eosinophils # 0.2 10*3/uL (0.0-0.87); Eosinophils % 2.5 % (0.00-10.9); Hematocrit 31.6 VOL% (35.7-47.0); Immature Granulocytes % 0.4 %; Immature Granulocytes Absolute 0.03 #; Lymphocytes # 1.7 10*3/uL (1.4-4.0); Lymphocytes % 24.9 % (21.3-54.2); Mean Corpuscular HGB Conc 31.6 GM/DL (32-36); Mean Corpuscular Hemoglobin 31 PG (27-34); Mean Corpuscular Volume 98.8 FL (87-102); Mean Platelet Volume 9.5 FL (9.6-12.0); Monocytes # 0.7 10*3/uL (0.11-0.8); Monocytes % 10.8 % (1.7-12.7); Neutrophils # 4.2 10*3/uL (1.4-7.4); Neutrophils % 61.4 % (38.7-73.9); Platelet Count 314 T/CUMM (130-400); Red Cell Distribution Width 13.4 % (9.3-17.3); White Blood Count 6.9 T/CUMM (4-12)
[2018-05-12 02:59] LABS: Potassium 3.2 MMOL/L (3.5-5.1)
[2018-05-12 03:01] LABS: Calcium 8.3 MG/DL (8.5-10.1)
[2018-05-12 03:02] LABS: Osmolality,Calculated 282.3 MOS/KG (273-304)
[2018-05-12] MEDS: LEVOTHYROXINE 75 MCG TABLET PO SCH (06:29)
[2018-05-12] MEDS: ALBUTEROL/IPRATROPIUM 3 ML NEB RESP TX SCH ×2 (06:57→10:20)
[2018-05-12] MEDS ORDERED: POTASSIUM CHLORIDE 20 MEQ TABLET PO SCH (10:30)
[2018-05-12] MEDS ORDERED: LEVOFLOXACIN 250 MG TABLET PO SCH (10:30)
[2018-05-12] MEDS: ESCITALOPRAM 10 MG TABLET PO SCH (10:50)
[2018-05-12] MEDS: DILTIAZEM CD 180 MG CAPSULE PO SCH (10:50)
[2018-05-12] MEDS: ISOSORBIDE MONONITRATE 30 MG TABLET PO SCH (10:50)
[2018-05-12] MEDS: ASPIRIN EC 81 MG TABLET PO SCH (10:51)
[2018-05-12] MEDS: DABIGATRAN 150 MG CAPSULE PO SCH (10:51)
[2018-05-12] MEDS: cycloSPORINE OPH EMUL 1 VIAL BOTH EYES SCH (10:57)
[2018-05-12] MEDS: FUROSEMIDE 40 MG/4 ML VIAL IV SCH (11:26)
[2018-05-12 11:49] VITALS: BP 128/57
[2018-05-12] MEDS ORDERED: FUROSEMIDE 40 MG TABLET PO SCH (16:00)
== END 2018-05-12 11:53 | disposition home health service (06) | DRG 292 ==
LOC: N.ED 15:19 → N.EDINP 17:58 → SUATTDRO 17:58 → N.4E 19:06
PROVIDERS: ADMIT Emergency Medicine; ATTEND Hospitalist

== ENCOUNTER 2018-07-12 14:32 | Inpatient (IN) ==
[2018-07-12 15:32] LABS: Basophils % 0.2 % (0.0-0.8); Eosinophils # 0.1 10*3/uL (0.0-0.87); Eosinophils % 1.9 % (0.00-10.9); Hematocrit 34.2 VOL% (35.7-47.0); Hemoglobin 10.6 GM/DL (12.0-16.0); Immature Granulocytes % 0.7 %; Immature Granulocytes Absolute 0.04 #; Lymphocytes # 1.5 10*3/uL (1.4-4.0); Lymphocytes % 26.4 % (21.3-54.2); Mean Corpuscular Hemoglobin 30 PG (27-34); Mean Corpuscular Volume 96.3 FL (87-102); Mean Platelet Volume 9.4 FL (9.6-12.0); Monocytes # 0.5 10*3/uL (0.11-0.8); Neutrophils # 3.6 10*3/uL (1.4-7.4); Neutrophils % 62.8 % (38.7-73.9); Platelet Count 271 T/CUMM (130-400); Red Blood Count 3.55 MC/CUMM (3.8-5.5); Red Cell Distribution Width 14.7 % (9.3-17.3); White Blood Count 5.8 T/CUMM (4-12)
[2018-07-12] MEDS ORDERED: FUROSEMIDE 40 MG/4 ML VIAL IV STA (15:36)
[2018-07-12 15:59] LABS: Albumin 3.4 G/DL (3.4-5.0); Bilirubin,Total 0.6 MG/DL (0.2-1.0); Potassium 3.4 MMOL/L (3.5-5.1); Total Protein 7.3 G/DL (6.4-8.3)
[2018-07-12 16:58] LABS: Apearance,Urine CLEAR (Clear); Bacteria,Urine Occasional /HPF (Few); Bilirubin,Urine Negative (Negative); Blood, Urine Negative (Negative); Glucose,Urine (UA) Negative (Negative); Hyaline Casts,Urine 1 /LPF (0-3); Ketones,Urine Negative (Negative); Mucus,Urine Occasional /LPF (Occasional); Nitrite,Urine Positive (Negative); Protein,Urine Negative; RBC,Urine <1 /HPF (0-4); Urine Color Yellow (Yellow); Urine Specific Gravity 1.008 (1.001-1.035); Urine Urobilinogen < 2.0 EU/DL (0.2-1.0); WBC,Urine <1 /HPF (0-6)
[2018-07-12] MEDS ORDERED: ACETAMINOPHEN 325 MG TABLET PO PRN (17:42)
[2018-07-12] MEDS ORDERED: NITROGLYCERIN SL 0.4 MG TABLET SL PRN (17:52)
[2018-07-12] MEDS: ALBUTEROL/IPRATROPIUM 3 ML NEB RESP TX SCH (19:38)
[2018-07-12] MEDS ORDERED: POTASSIUM CHLORIDE 20 MEQ TABLET PO ONE (20:18)
[2018-07-12] MEDS: methylPREDNISolone SOD SUC 40 MG/1 ML VIAL IV SCH (21:13)
[2018-07-12] MEDS: LEVOFLOXACIN INJ 750 MG in PREMIX 1 EACH IV SCH (21:17)
[2018-07-12] MEDS: DABIGATRAN 150 MG CAPSULE PO SCH (21:18)
[2018-07-12] MEDS: LATANOPROST 0.005% OPH SOLN 2.5 ML BOTTLE BOTH EYES SCH (21:18)
[2018-07-12] MEDS: cycloSPORINE OPH EMUL 1 VIAL BOTH EYES SCH (21:18)
[2018-07-13 04:35] LABS: Eosinophils % 0.2 % (0.00-10.9); Hematocrit 36.4 VOL% (35.7-47.0); Hemoglobin 11.1 GM/DL (12.0-16.0); Immature Granulocytes % 0.2 %; Immature Granulocytes Absolute 0.01 #; Lymphocytes # 0.7 10*3/uL (1.4-4.0); Lymphocytes % 11.5 % (21.3-54.2); Mean Corpuscular HGB Conc 30.5 GM/DL (32-36); Mean Corpuscular Hemoglobin 29 PG (27-34); Mean Platelet Volume 9.4 FL (9.6-12.0); Monocytes # 0.1 10*3/uL (0.11-0.8); Monocytes % 1.5 % (1.7-12.7); Neutrophils # 5.1 10*3/uL (1.4-7.4); Neutrophils % 86.6 % (38.7-73.9); Platelet Count 302 T/CUMM (130-400); Red Blood Count 3.79 MC/CUMM (3.8-5.5); Red Cell Distribution Width 14.6 % (9.3-17.3); White Blood Count 5.9 T/CUMM (4-12)
[2018-07-13 04:54] LABS: Calcium 9.2 MG/DL (8.5-10.1); Osmolality,Calculated 283.4 MOS/KG (273-304); Potassium 4.3 MMOL/L (3.5-5.1)
[2018-07-13] MEDS: methylPREDNISolone SOD SUC 40 MG/1 ML VIAL IV SCH ×2 (06:10→17:18)
[2018-07-13] MEDS: LEVOTHYROXINE 88 MCG TABLET PO SCH (06:15)
[2018-07-13] MEDS: ALBUTEROL/IPRATROPIUM 3 ML NEB RESP TX SCH ×4 (07:04→20:04)
[2018-07-13] MEDS ORDERED: NON-FORMULARY MEDICATION (Umeclidinium Brm/Vilanterol Tr [Anoro Ellipta] 1 PUFF) INH SCH (09:00)
[2018-07-13] MEDS: DILTIAZEM CD 180 MG CAPSULE PO SCH (09:15)
[2018-07-13] MEDS: FUROSEMIDE 40 MG TABLET PO SCH ×2 (09:15→16:07)
[2018-07-13] MEDS: ASPIRIN EC 81 MG TABLET PO SCH (09:15)
[2018-07-13] MEDS: ESCITALOPRAM 10 MG TABLET PO SCH (09:16)
[2018-07-13] MEDS: ISOSORBIDE MONONITRATE 30 MG TABLET PO SCH (09:16)
[2018-07-13] MEDS: DABIGATRAN 150 MG CAPSULE PO SCH ×2 (09:16→21:55)
[2018-07-13] MEDS: cycloSPORINE OPH EMUL 1 VIAL BOTH EYES SCH ×2 (09:58→21:56)
[2018-07-13] MEDS: LATANOPROST 0.005% OPH SOLN 2.5 ML BOTTLE BOTH EYES SCH (20:35)
[2018-07-13] MEDS: LEVOFLOXACIN INJ 750 MG in PREMIX 1 EACH IV SCH (21:56)
[2018-07-14] MEDS: LEVOTHYROXINE 88 MCG TABLET PO SCH (06:25)
[2018-07-14] MEDS: methylPREDNISolone SOD SUC 40 MG/1 ML VIAL IV SCH (06:32)
[2018-07-14] MEDS: ALBUTEROL/IPRATROPIUM 3 ML NEB RESP TX SCH (07:11)
[2018-07-14 07:49] VITALS: BP 136/61
[2018-07-14] MEDS: ISOSORBIDE MONONITRATE 30 MG TABLET PO SCH (09:41)
[2018-07-14] MEDS: DILTIAZEM CD 180 MG CAPSULE PO SCH (09:41)
[2018-07-14] MEDS: FUROSEMIDE 40 MG TABLET PO SCH (09:42)
[2018-07-14] MEDS: ESCITALOPRAM 10 MG TABLET PO SCH (09:42)
[2018-07-14] MEDS: ASPIRIN EC 81 MG TABLET PO SCH (09:42)
[2018-07-14] MEDS: cycloSPORINE OPH EMUL 1 VIAL BOTH EYES SCH (09:43)
[2018-07-14] MEDS: DABIGATRAN 150 MG CAPSULE PO SCH (09:48)
== END 2018-07-14 10:55 | disposition home or self-care (01) | DRG 191 ==
LOC: EDBD → EDUNIT# → N.ED 14:32 → N.EDINP 17:42 → N.TELES 18:14
PROVIDERS: ADMIT Internal Medicine Cardiovascular Disease; ATTEND Internal Medicine Cardiovascular Disease

== ENCOUNTER 2019-07-31 13:47 | Observation (INO) ==
[2019-07-31] MEDS ORDERED: ONDANSETRON 4 MG/2 ML VIAL IV PRN (16:24)
[2019-07-31] MEDS ORDERED: ACETAMINOPHEN 325 MG TABLET PO PRN (16:24)
[2019-07-31 17:18] LABS: Basophils % 0.5 % (0.0-0.8); Eosinophils # 0.2 10*3/uL (0.0-0.87); Eosinophils % 2.1 % (0.00-10.9); Hematocrit 44.2 VOL% (35.7-47.0); Hemoglobin 14.2 GM/DL (12.0-16.0); Immature Granulocytes % 0.2 %; Immature Granulocytes Absolute 0.02 #; Lymphocytes # 2.4 10*3/uL (1.4-4.0); Mean Corpuscular HGB Conc 32.1 GM/DL (32-36); Mean Corpuscular Volume 93.6 FL (87-102); Mean Platelet Volume 9.5 FL (9.6-12.0); Neutrophils % 58.2 % (38.7-73.9); Platelet Count 293 T/CUMM (130-400); Red Blood Count 4.72 MC/CUMM (3.8-5.5); Red Cell Distribution Width 13.6 % (9.3-17.3); White Blood Count 8.2 T/CUMM (4-12)
[2019-07-31 17:44] LABS: Calcium 9.6 MG/DL (8.5-10.1); Osmolality,Calculated 280.1 MOS/KG (273-304)
[2019-07-31 17:51] LABS: Troponin I < 0.015 NG/ML (0.00-0.045)
[2019-07-31] MEDS ORDERED: NITROGLYCERIN SL 0.4 MG TABLET SL PRN (17:52)
[2019-07-31] MEDS: POTASSIUM CHLORIDE 20 MEQ TABLET PO PRN ×3 (18:22→23:07)
[2019-07-31 18:27] LABS: Risk Ratio 6.7; VLDL CHOLESTEROL 45.6 MG/DL
[2019-07-31] MEDS: FUROSEMIDE 40 MG TABLET PO SCH (18:40)
[2019-07-31 20:22] LABS: Apearance,Urine CLEAR (Clear); Bilirubin,Urine Negative (Negative); Blood, Urine Negative (Negative); Glucose,Urine (UA) Negative (Negative); Hyaline Casts,Urine 14 /LPF (0-3); Ketones,Urine Negative (Negative); Mucus,Urine Occasional /LPF (Occasional); Nitrite,Urine Negative (Negative); Protein,Urine Negative; RBC,Urine 2 /HPF (0-4); Squamous Epithelial Cell,Urine Occasional /HPF (0-10); Urine Color Yellow (Yellow); Urine Specific Gravity 1.016 (1.001-1.035); Urine Urobilinogen < 2.0 EU/DL (0.2-1.0); WBC,Urine 2 /HPF (0-6)
[2019-07-31] MEDS ORDERED: DABIGATRAN 75 MG CAPSULE PO SCH (21:00)
[2019-07-31 21:40] LABS: Troponin I < 0.015 NG/ML (0.00-0.045)
[2019-07-31] MEDS: LATANOPROST 0.005% OPH SOLN 2.5 ML BOTTLE BOTH EYES SCH (22:18)
[2019-07-31] MEDS: cycloSPORINE OPH EMUL 1 VIAL BOTH EYES SCH (22:19)
[2019-07-31 23:53] LABS: Troponin I < 0.015 NG/ML (0.00-0.045)
[2019-08-01] MEDS: POTASSIUM CHLORIDE 20 MEQ TABLET PO PRN (00:35)
[2019-08-01 05:43] LABS: Basophils % 0.6 % (0.0-0.8); Eosinophils # 0.2 10*3/uL (0.0-0.87); Eosinophils % 3.4 % (0.00-10.9); Hematocrit 42.4 VOL% (35.7-47.0); Hemoglobin 13.7 GM/DL (12.0-16.0); Immature Granulocytes % 0.9 %; Immature Granulocytes Absolute 0.06 #; Lymphocytes # 2.2 10*3/uL (1.4-4.0); Mean Corpuscular HGB Conc 32.3 GM/DL (32-36); Mean Corpuscular Volume 94.2 FL (87-102); Mean Platelet Volume 9.6 FL (9.6-12.0); Monocytes % 11.7 % (1.7-12.7); Neutrophils % 51.4 % (38.7-73.9); Platelet Count 251 T/CUMM (130-400); Red Cell Distribution Width 13.5 % (9.3-17.3); White Blood Count 6.8 T/CUMM (4-12)
[2019-08-01] MEDS: LEVOTHYROXINE 75 MCG TABLET PO SCH (06:05)
[2019-08-01 06:18] LABS: Troponin I < 0.015 NG/ML (0.00-0.045)
[2019-08-01 06:27] LABS: Calcium 9.5 MG/DL (8.5-10.1); Osmolality,Calculated 285.7 MOS/KG (273-304); Thyroid Stimulating Hormone 2.36 uIU/ml (0.358-3.74)
[2019-08-01] MEDS ORDERED: metOLazone 5 MG TABLET PO SCH (09:00)
[2019-08-01] MEDS ORDERED: ASPIRIN 325 MG TABLET PO ONE (09:49)
[2019-08-01] MEDS ORDERED: diphenhydrAMINE CAP 25 MG CAPSULE PO ONE (09:49)
[2019-08-01] MEDS ORDERED: DIAZEPAM 5 MG TABLET PO ONE (09:49)
[2019-08-01] MEDS: CLOPIDOGREL 75 MG TABLET PO SCH (09:50)
[2019-08-01] MEDS: DILTIAZEM CD 180 MG CAPSULE PO SCH (09:50)
[2019-08-01] MEDS: FUROSEMIDE 40 MG TABLET PO SCH ×2 (16:06→16:29)
[2019-08-01] MEDS: ESCITALOPRAM 10 MG TABLET PO SCH (16:07)
[2019-08-01] MEDS: PANTOPRAZOLE 40 MG TABLET PO SCH (16:07)
[2019-08-01] MEDS: ISOSORBIDE MONONITRATE 30 MG TABLET PO SCH (16:07)
[2019-08-01] MEDS: cycloSPORINE OPH EMUL 1 VIAL BOTH EYES SCH ×2 (16:07→21:54)
[2019-08-01] MEDS ORDERED: HEPARIN/NACL 0.9% 2 UNITS/ML 1,000 ML IV ONE (17:59)
[2019-08-01] MEDS ORDERED: LIDOCAINE 1% 20 ML VIAL ONE (17:59)
[2019-08-01] MEDS ORDERED: fentaNYL 100 MCG/2 ML VIAL ONE (18:23)
[2019-08-01] MEDS ORDERED: MIDAZOLAM 2 MG/2 ML VIAL ONE (18:23)
[2019-08-01] MEDS: LATANOPROST 0.005% OPH SOLN 2.5 ML BOTTLE BOTH EYES SCH (21:54)
[2019-08-02 05:33] LABS: Basophils % 0.5 % (0.0-0.8); Eosinophils # 0.2 10*3/uL (0.0-0.87); Eosinophils % 3.6 % (0.00-10.9); Hematocrit 42.6 VOL% (35.7-47.0); Hemoglobin 13.3 GM/DL (12.0-16.0); Immature Granulocytes % 0.2 %; Immature Granulocytes Absolute 0.01 #; Lymphocytes # 1.7 10*3/uL (1.4-4.0); Lymphocytes % 25.7 % (21.3-54.2); Mean Corpuscular HGB Conc 31.2 GM/DL (32-36); Mean Corpuscular Volume 96.4 FL (87-102); Mean Platelet Volume 9.6 FL (9.6-12.0); Monocytes % 10.7 % (1.7-12.7); Neutrophils % 59.3 % (38.7-73.9); Platelet Count 236 T/CUMM (130-400); Red Blood Count 4.42 MC/CUMM (3.8-5.5); Red Cell Distribution Width 13.5 % (9.3-17.3); White Blood Count 6.5 T/CUMM (4-12)
[2019-08-02 05:52] LABS: Calcium 8.8 MG/DL (8.5-10.1); Osmolality,Calculated 288.3 MOS/KG (273-304)
[2019-08-02] MEDS: LEVOTHYROXINE 75 MCG TABLET PO SCH (06:13)
[2019-08-02] MEDS: PANTOPRAZOLE 40 MG TABLET PO SCH (09:36)
[2019-08-02] MEDS: ISOSORBIDE MONONITRATE 30 MG TABLET PO SCH (09:36)
[2019-08-02] MEDS: FUROSEMIDE 40 MG TABLET PO SCH (09:36)
[2019-08-02] MEDS: POTASSIUM CHLORIDE 20 MEQ TABLET PO PRN (09:36)
[2019-08-02] MEDS: DILTIAZEM CD 180 MG CAPSULE PO SCH (09:36)
[2019-08-02] MEDS: CLOPIDOGREL 75 MG TABLET PO SCH (09:36)
[2019-08-02] MEDS: ESCITALOPRAM 10 MG TABLET PO SCH (09:36)
[2019-08-02] MEDS: cycloSPORINE OPH EMUL 1 VIAL BOTH EYES SCH (09:37)
[2019-08-02 11:59] VITALS: BP 132/60
[2019-08-02] MEDS ORDERED: POTASSIUM CHLORIDE 20 MEQ TABLET PO ONE (12:15)
[2019-08-02] MEDS ORDERED: SPIRONOLACTONE 25 MG TABLET PO SCH (12:30)
[2019-08-03] MEDS ORDERED: FUROSEMIDE 80 MG TABLET PO SCH (09:00)
== END 2019-08-02 15:15 | disposition home health service (06) ==
LOC: N.TELES → SUATTDRO 15:43 → SUPCPDRO 15:43
PROVIDERS: ADMIT Internal Medicine; ATTEND Internal Medicine
PROC: CLCCHCL (ICD-10-PCS; 2019-08-01 14:45)

== ENCOUNTER 2021-10-23 01:25 | Inpatient (IN) ==
[2021-10-23 02:06] LABS: Basophils # 0.1 10*3/uL (0.0-0.2); Basophils % 0.3 % (0.0-0.8); Eosinophils # 0.1 10*3/uL (0.0-0.87); Eosinophils % 0.4 % (0.00-10.9); Hematocrit 36.9 VOL% (35.7-47.0); Hemoglobin 11.4 GM/DL (12.0-16.0); Immature Granulocytes % 1.4 %; Immature Granulocytes Absolute 0.34 #; Lymphocytes # 1.2 10*3/uL (1.4-4.0); Lymphocytes % 5.2 % (21.3-54.2); Mean Corpuscular HGB Conc 30.9 GM/DL (32-36); Mean Corpuscular Volume 100.5 FL (87-102); Mean Platelet Volume 9.1 FL (9.6-12.0); Monocytes % 4.2 % (1.7-12.7); Neutrophils % 88.5 % (38.7-73.9); Platelet Count 477 T/CUMM (130-400); Red Blood Count 3.67 MC/CUMM (3.8-5.5); Red Cell Distribution Width 14.7 % (9.3-17.3); White Blood Count 23.7 T/CUMM (4-12)
[2021-10-23 02:40] LABS: Albumin 3.1 G/DL (3.4-5.0); Bilirubin,Total 0.5 MG/DL (0.20-1.00); Calcium 9.2 MG/DL (8.5-10.1); Potassium 3.7 MMOL/L (3.5-5.1); Total Protein 7.1 G/DL (6.4-8.2)
[2021-10-23 02:42] LABS: Arterial Base Excess iSTAT 4 MMOL/L (-2.5-2.5); Arterial Bicarbonate iSTAT 31.2 MMOL/L (20-26); Arterial O2 Saturation iSTAT 100 % (95-100); Arterial PCO2 iSTAT 56 MM HG (35-48); Arterial PO2 iSTAT 219 MM HG (80-95); Arterial Total CO2 iSTAT 33 MMO/L (23-27); Arterial pH iSTAT 7.354 (7.35-7.45)
[2021-10-23 02:44] LABS: Eosinophils 3 % (0-10); Lymphocytes 3 % (20-55); Ovalocytes Few; Total Cells Counted 100
[2021-10-23 02:45] LABS: Elliptocytes Few; Platelet Estimate Normal; Schistocytes Slight; Stomatocytes Few
[2021-10-23] MEDS ORDERED: PIPERACILLIN/TAZOBACTAM 3,375 MG in SODIUM CHLORIDE 0.9% 100 ML IV STA (03:25)
[2021-10-23] MEDS ORDERED: FUROSEMIDE 100 MG/10 ML VIAL IV STA (03:26)
[2021-10-23] MEDS ORDERED: GLUCAGON 1 MG VIAL IM PRN (04:43)
[2021-10-23] MEDS ORDERED: ACETAMINOPHEN 325 MG TABLET PO PRN (04:43)
[2021-10-23] MEDS ORDERED: ONDANSETRON 4 MG/2 ML VIAL IV PRN (04:43)
[2021-10-23] MEDS ORDERED: ALBUTEROL 2.5 MG/3 ML NEB RESP TX PRN (04:43)
[2021-10-23] MEDS ORDERED: DEXTROSE 10% 250 ML BAG IV PRN (04:49)
[2021-10-23] MEDS: methylPREDNISolone SOD SUC 40 MG/1 ML VIAL IV SCH ×2 (05:13→16:48)
[2021-10-23] MEDS: ALBUTEROL/IPRATROPIUM 3 ML NEB RESP TX SCH ×3 (06:58→19:25)
[2021-10-23] MEDS ORDERED: DABIGATRAN 75 MG CAPSULE PO SCH (09:00)
[2021-10-23] MEDS ORDERED: FUROSEMIDE 40 MG/4 ML VIAL IV SCH (09:00)
[2021-10-23] MEDS: FUROSEMIDE 40 MG/4 ML VIAL IV SCH ×2 (09:49→16:48)
[2021-10-23] MEDS: CLOPIDOGREL 75 MG TABLET PO SCH (09:49)
[2021-10-23] MEDS: AZITHROMYCIN INJ 500 MG in SODIUM CHLORIDE 0.9% 250 ML IV SCH (09:51)
[2021-10-23] MEDS: PIPERACILLIN/TAZOBACTAM 3,375 MG in SODIUM CHLORIDE 0.9% 100 ML IV SCH ×2 (12:05→18:45)
[2021-10-23] MEDS: SPIRONOLACTONE 25 MG TABLET PO SCH (12:05)
[2021-10-23] MEDS: ISOSORBIDE MONONITRATE 30 MG TABLET PO SCH (14:09)
[2021-10-23 17:44] LABS: Urine Appearance Clear (Clear); Urine Color Yellow (Yellow)
[2021-10-23 17:45] LABS: Bilirubin,Urine Negative (Negative); Blood, Urine Moderate mg/dL (Negative); Glucose,Urine (UA) Negative (Negative); Ketones,Urine Negative (Negative); Nitrite,Urine Negative (Negative); Protein,Urine Negative (Negative); Urine Specific Gravity 1.015 (1.001-1.035); Urine Urobilinogen 0.2 eU/dL (<2.0)
[2021-10-23 17:50] LABS: Mucus,Urine Occasional /LPF (Occasional); RBC,Urine 14 /HPF (0-4); Squamous Epithelial Cell,Urine Occasional /HPF (0-10)
[2021-10-24] MEDS: ALBUTEROL/IPRATROPIUM 3 ML NEB RESP TX SCH ×4 (00:30→21:46)
[2021-10-24] MEDS: PIPERACILLIN/TAZOBACTAM 3,375 MG in SODIUM CHLORIDE 0.9% 100 ML IV SCH ×4 (03:58→22:39)
[2021-10-24] MEDS: methylPREDNISolone SOD SUC 40 MG/1 ML VIAL IV SCH ×2 (04:03→17:16)
[2021-10-24 04:33] LABS: Basophils % 0.1 % (0.0-0.8); Hematocrit 34.1 VOL% (35.7-47.0); Hemoglobin 10.9 GM/DL (12.0-16.0); Immature Granulocytes % 0.8 %; Immature Granulocytes Absolute 0.12 #; Lymphocytes # 0.9 10*3/uL (1.4-4.0); Lymphocytes % 5.8 % (21.3-54.2); Mean Corpuscular Volume 96.1 FL (87-102); Mean Platelet Volume 9.5 FL (9.6-12.0); Monocytes # 0.2 10*3/uL (0.11-0.8); Neutrophils % 92.3 % (38.7-73.9); Platelet Count 413 T/CUMM (130-400); Red Blood Count 3.55 MC/CUMM (3.8-5.5); Red Cell Distribution Width 14.5 % (9.3-17.3); White Blood Count 14.7 T/CUMM (4-12)
[2021-10-24 04:52] LABS: Calcium 9.2 MG/DL (8.5-10.1); Osmolality,Calculated 279.7 MOS/KG (273-304); Potassium 3.4 MMOL/L (3.5-5.1)
[2021-10-24 04:55] LABS: Hypersegmented Neutrophil SLIGHT; Hypochromia Slight; Lymphocytes 5 % (20-55); Total Cells Counted 100
[2021-10-24 04:56] LABS: Microcytosis Slight; Ovalocytes Slight; Platelet Estimate Increased
[2021-10-24] MEDS ORDERED: NITROGLYCERIN SL 0.4 MG TABLET SL ONE ×2 (08:50→08:51)
[2021-10-24] MEDS ORDERED: MORPHINE 2 MG/1 ML SYRINGE ONE (08:50)
[2021-10-24] MEDS ORDERED: MORPHINE 2 MG/1 ML SYRINGE IV ONE (08:51)
[2021-10-24] MEDS ORDERED: METOPROLOL TARTRATE 5 MG/5 ML VIAL IV ONE ×3 (08:57→09:06)
[2021-10-24] MEDS ORDERED: EZETIMIBE 10 MG TABLET PO SCH (09:00)
[2021-10-24] MEDS ORDERED: NITROGLYCERIN 2% OINT 1 INCH/GM PACK TOP SCH (09:00)
[2021-10-24] MEDS ORDERED: MIDAZOLAM 2 MG/2 ML VIAL ONE ×2 (09:02→09:06)
[2021-10-24] MEDS ORDERED: MIDAZOLAM 2 MG/2 ML VIAL IV ONE ×3 (09:03→09:08)
[2021-10-24] MEDS ORDERED: AMIODARONE INJ 450 MG in DEXTROSE 5% 241 ML IV SCH (09:30)
[2021-10-24] MEDS: AZITHROMYCIN INJ 500 MG in SODIUM CHLORIDE 0.9% 250 ML IV SCH (09:48)
[2021-10-24] MEDS: POTASSIUM BICARB EFFERVESCENT 20 MEQ TAB.EFF PO PRN ×3 (09:49→15:10)
[2021-10-24] MEDS: FUROSEMIDE 40 MG/4 ML VIAL IV SCH ×2 (09:49→17:16)
[2021-10-24] MEDS: ISOSORBIDE MONONITRATE 30 MG TABLET PO SCH (09:50)
[2021-10-24] MEDS: ENOXAPARIN 60 MG/0.6 ML SYRINGE SUBCUT SCH ×2 (09:50→21:03)
[2021-10-24] MEDS: CLOPIDOGREL 75 MG TABLET PO SCH (09:50)
[2021-10-24] MEDS: SPIRONOLACTONE 25 MG TABLET PO SCH (09:50)
[2021-10-24] MEDS: ROSUVASTATIN 20 MG TABLET PO SCH (09:50)
[2021-10-24] MEDS: ASCORBIC ACID 500 MG TABLET PO SCH ×2 (09:54→21:02)
[2021-10-24] MEDS: METOPROLOL SUCCINATE XL 25 MG TABLET PO SCH (12:03)
[2021-10-24] MEDS ORDERED: MAGNESIUM SULF RIDER 2 GM/50 ML PREMIX IV ONE (14:53)
[2021-10-24] MEDS: AMIODARONE INJ 450 MG in DEXTROSE 5% 241 ML IV SCH ×2 (17:36→21:29)
[2021-10-24 21:13] LABS: Potassium 4.4 MMOL/L (3.5-5.1)
[2021-10-25] MEDS: ALBUTEROL/IPRATROPIUM 3 ML NEB RESP TX SCH ×4 (03:07→19:50)
[2021-10-25] MEDS: methylPREDNISolone SOD SUC 40 MG/1 ML VIAL IV SCH ×2 (05:09→17:15)
[2021-10-25] MEDS: PIPERACILLIN/TAZOBACTAM 3,375 MG in SODIUM CHLORIDE 0.9% 100 ML IV SCH ×3 (05:09→21:03)
[2021-10-25 05:16] LABS: Basophils % 0.1 % (0.0-0.8); Hematocrit 36.3 VOL% (35.7-47.0); Hemoglobin 11.4 GM/DL (12.0-16.0); Immature Granulocytes % 0.7 %; Immature Granulocytes Absolute 0.13 #; Lymphocytes # 0.8 10*3/uL (1.4-4.0); Lymphocytes % 4.3 % (21.3-54.2); Mean Corpuscular HGB Conc 31.4 GM/DL (32-36); Mean Corpuscular Volume 98.4 FL (87-102); Mean Platelet Volume 9.4 FL (9.6-12.0); Monocytes # 0.3 10*3/uL (0.11-0.8); Monocytes % 1.7 % (1.7-12.7); Neutrophils % 93.2 % (38.7-73.9); Platelet Count 434 T/CUMM (130-400); Red Blood Count 3.69 MC/CUMM (3.8-5.5); Red Cell Distribution Width 14.5 % (9.3-17.3); White Blood Count 19.2 T/CUMM (4-12)
[2021-10-25 05:42] LABS: Calcium 9.2 MG/DL (8.5-10.1); Osmolality,Calculated 280.1 MOS/KG (273-304); Potassium 4.2 MMOL/L (3.5-5.1)
[2021-10-25 05:47] LABS: Hypochromia 1+; Lymphocytes 2 % (20-55); Microcytosis Slight; Total Cells Counted 100
[2021-10-25 05:48] LABS: Platelet Estimate Increased
[2021-10-25 05:55] LABS: Calcium 9.2 MG/DL (8.5-10.1); Osmolality,Calculated 283.7 MOS/KG (273-304); Potassium 4.2 MMOL/L (3.5-5.1)
[2021-10-25] MEDS: AMIODARONE INJ 450 MG in DEXTROSE 5% 241 ML IV SCH (06:30)
[2021-10-25] MEDS: ENOXAPARIN 60 MG/0.6 ML SYRINGE SUBCUT SCH ×2 (09:06→21:03)
[2021-10-25] MEDS: METOPROLOL SUCCINATE XL 25 MG TABLET PO SCH (09:06)
[2021-10-25] MEDS: ASCORBIC ACID 500 MG TABLET PO SCH ×2 (09:06→21:03)
[2021-10-25] MEDS: CLOPIDOGREL 75 MG TABLET PO SCH (09:06)
[2021-10-25] MEDS: SPIRONOLACTONE 25 MG TABLET PO SCH (09:06)
[2021-10-25] MEDS: ROSUVASTATIN 20 MG TABLET PO SCH (09:06)
[2021-10-25] MEDS: ISOSORBIDE MONONITRATE 30 MG TABLET PO SCH (09:06)
[2021-10-25] MEDS: FUROSEMIDE 40 MG/4 ML VIAL IV SCH ×2 (09:06→17:14)
[2021-10-25] MEDS: AZITHROMYCIN INJ 500 MG in SODIUM CHLORIDE 0.9% 250 ML IV SCH (09:07)
[2021-10-25] MEDS: VALSARTAN 80 MG TABLET PO SCH (11:59)
[2021-10-25] MEDS: guaiFENesin 200 MG/10 ML UDCUP PO PRN ×3 (11:59→21:16)
[2021-10-25] MEDS: ZALEPLON 5 MG CAPSULE PO PRN (23:52)
[2021-10-26 03:25] LABS: Hematocrit 35.9 VOL% (35.7-47.0); Hemoglobin 11.4 GM/DL (12.0-16.0); Immature Granulocytes % 0.6 %; Immature Granulocytes Absolute 0.08 #; Lymphocytes # 0.6 10*3/uL (1.4-4.0); Lymphocytes % 4.1 % (21.3-54.2); Mean Corpuscular HGB Conc 31.8 GM/DL (32-36); Mean Corpuscular Volume 98.4 FL (87-102); Mean Platelet Volume 9.4 FL (9.6-12.0); Monocytes # 0.3 10*3/uL (0.11-0.8); Neutrophils % 93.3 % (38.7-73.9); Platelet Count 460 T/CUMM (130-400); Red Blood Count 3.65 MC/CUMM (3.8-5.5); Red Cell Distribution Width 14.5 % (9.3-17.3); White Blood Count 14.3 T/CUMM (4-12)
[2021-10-26 03:43] LABS: Hypochromia Slight; Lymphocytes 4 % (20-55); Microcytosis Slight; Platelet Estimate Adequate; Total Cells Counted 100
[2021-10-26 03:47] LABS: Calcium 8.6 MG/DL (8.5-10.1); Osmolality,Calculated 289.5 MOS/KG (273-304); Potassium 3.6 MMOL/L (3.5-5.1)
[2021-10-26] MEDS: ALBUTEROL/IPRATROPIUM 3 ML NEB RESP TX SCH ×4 (04:07→19:50)
[2021-10-26] MEDS: PIPERACILLIN/TAZOBACTAM 3,375 MG in SODIUM CHLORIDE 0.9% 100 ML IV SCH ×2 (05:45→18:16)
[2021-10-26] MEDS: methylPREDNISolone SOD SUC 40 MG/1 ML VIAL IV SCH (05:46)
[2021-10-26] MEDS ORDERED: APIXABAN 5 MG TABLET PO SCH (09:00)
[2021-10-26] MEDS: FUROSEMIDE 40 MG/4 ML VIAL IV SCH ×2 (09:24→18:15)
[2021-10-26] MEDS: ROSUVASTATIN 20 MG TABLET PO SCH (09:25)
[2021-10-26] MEDS: SPIRONOLACTONE 25 MG TABLET PO SCH (09:25)
[2021-10-26] MEDS: VALSARTAN 80 MG TABLET PO SCH (09:25)
[2021-10-26] MEDS: METOPROLOL SUCCINATE XL 25 MG TABLET PO SCH ×2 (09:25→20:06)
[2021-10-26] MEDS: CLOPIDOGREL 75 MG TABLET PO SCH (09:25)
[2021-10-26] MEDS: predniSONE 20 MG TABLET PO SCH (09:25)
[2021-10-26] MEDS: AZITHROMYCIN 250 MG TABLET PO SCH (09:25)
[2021-10-26] MEDS: ASCORBIC ACID 500 MG TABLET PO SCH ×2 (09:25→20:06)
[2021-10-26] MEDS: ISOSORBIDE MONONITRATE 30 MG TABLET PO SCH (09:25)
[2021-10-26] MEDS: POTASSIUM BICARB EFFERVESCENT 20 MEQ TAB.EFF PO PRN (09:26)
[2021-10-26] MEDS: ENOXAPARIN 100 MG/ML SYRINGE SUBCUT SCH ×2 (10:25→20:46)
[2021-10-26] MEDS ORDERED: NITROGLYCERIN SL 0.4 MG TABLET SL PRN (11:26)
[2021-10-26 19:50] VITALS: BP 110/55
[2021-10-26] MEDS: guaiFENesin 200 MG/10 ML UDCUP PO PRN (20:07)
[2021-10-26] MEDS: ZALEPLON 5 MG CAPSULE PO PRN (22:23)
[2021-10-27] MEDS: PIPERACILLIN/TAZOBACTAM 3,375 MG in SODIUM CHLORIDE 0.9% 100 ML IV SCH ×3 (01:04→17:42)
[2021-10-27] MEDS: ALBUTEROL/IPRATROPIUM 3 ML NEB RESP TX SCH ×4 (01:39→18:56)
[2021-10-27 04:39] LABS: Hematocrit 39.2 VOL% (35.7-47.0); Hemoglobin 12.4 GM/DL (12.0-16.0); Immature Granulocytes % 0.6 %; Immature Granulocytes Absolute 0.08 #; Lymphocytes # 0.8 10*3/uL (1.4-4.0); Lymphocytes % 5.7 % (21.3-54.2); Mean Corpuscular HGB Conc 31.6 GM/DL (32-36); Mean Corpuscular Volume 98.2 FL (87-102); Mean Platelet Volume 9.6 FL (9.6-12.0); Monocytes # 0.8 10*3/uL (0.11-0.8); Monocytes % 6.3 % (1.7-12.7); Neutrophils % 87.4 % (38.7-73.9); Platelet Count 450 T/CUMM (130-400); Red Blood Count 3.99 MC/CUMM (3.8-5.5); Red Cell Distribution Width 14.6 % (9.3-17.3); White Blood Count 13.3 T/CUMM (4-12)
[2021-10-27 04:57] LABS: Osmolality,Calculated 287.5 MOS/KG (273-304)
[2021-10-27] MEDS: FUROSEMIDE 40 MG/4 ML VIAL IV SCH (08:51)
[2021-10-27] MEDS: ENOXAPARIN 100 MG/ML SYRINGE SUBCUT SCH ×2 (08:55→20:30)
[2021-10-27] MEDS: VALSARTAN 80 MG TABLET PO SCH (08:56)
[2021-10-27] MEDS: AZITHROMYCIN 250 MG TABLET PO SCH (08:57)
[2021-10-27] MEDS: predniSONE 20 MG TABLET PO SCH (08:57)
[2021-10-27] MEDS: SPIRONOLACTONE 25 MG TABLET PO SCH (08:57)
[2021-10-27] MEDS: ASCORBIC ACID 500 MG TABLET PO SCH ×2 (08:57→20:23)
[2021-10-27] MEDS: ROSUVASTATIN 20 MG TABLET PO SCH (08:57)
[2021-10-27] MEDS: METOPROLOL SUCCINATE XL 25 MG TABLET PO SCH ×2 (08:57→20:23)
[2021-10-27] MEDS: DOCUSATE SODIUM 100 MG CAPSULE PO PRN (08:57)
[2021-10-27] MEDS: ISOSORBIDE MONONITRATE 30 MG TABLET PO SCH (08:58)
[2021-10-27] MEDS: CLOPIDOGREL 75 MG TABLET PO SCH (08:58)
[2021-10-27] MEDS ORDERED: DILTIAZEM CD 180 MG CAPSULE PO SCH (09:00)
[2021-10-27] MEDS: ZALEPLON 5 MG CAPSULE PO PRN (22:25)
[2021-10-28] MEDS: ALBUTEROL/IPRATROPIUM 3 ML NEB RESP TX SCH ×3 (00:21→14:27)
[2021-10-28] MEDS: PIPERACILLIN/TAZOBACTAM 3,375 MG in SODIUM CHLORIDE 0.9% 100 ML IV SCH ×2 (01:31→09:06)
[2021-10-28 04:03] LABS: Basophils % 0.1 % (0.0-0.8); Eosinophils % 0.3 % (0.00-10.9); Hematocrit 38.7 VOL% (35.7-47.0); Hemoglobin 12.2 GM/DL (12.0-16.0); Immature Granulocytes % 0.8 %; Immature Granulocytes Absolute 0.09 #; Lymphocytes # 1.2 10*3/uL (1.4-4.0); Lymphocytes % 10.8 % (21.3-54.2); Mean Corpuscular HGB Conc 31.5 GM/DL (32-36); Mean Corpuscular Volume 99.2 FL (87-102); Mean Platelet Volume 9.3 FL (9.6-12.0); Monocytes # 0.9 10*3/uL (0.11-0.8); Monocytes % 8.1 % (1.7-12.7); Neutrophils % 79.9 % (38.7-73.9); Platelet Count 446 T/CUMM (130-400); Red Cell Distribution Width 14.7 % (9.3-17.3)
[2021-10-28 04:19] LABS: Calcium 8.5 MG/DL (8.5-10.1); Osmolality,Calculated 290.1 MOS/KG (273-304); Potassium 3.6 MMOL/L (3.5-5.1)
[2021-10-28] MEDS: VALSARTAN 80 MG TABLET PO SCH (08:05)
[2021-10-28] MEDS: guaiFENesin 200 MG/10 ML UDCUP PO PRN (08:05)
[2021-10-28] MEDS: POTASSIUM BICARB EFFERVESCENT 20 MEQ TAB.EFF PO PRN ×2 (08:06→11:16)
[2021-10-28] MEDS: METOPROLOL SUCCINATE XL 25 MG TABLET PO SCH (08:06)
[2021-10-28] MEDS: CLOPIDOGREL 75 MG TABLET PO SCH (08:06)
[2021-10-28] MEDS: predniSONE 20 MG TABLET PO SCH (08:06)
[2021-10-28] MEDS: ASCORBIC ACID 500 MG TABLET PO SCH (08:06)
[2021-10-28] MEDS: ROSUVASTATIN 20 MG TABLET PO SCH (08:06)
[2021-10-28] MEDS: DOCUSATE SODIUM 100 MG CAPSULE PO PRN (08:07)
[2021-10-28] MEDS: ISOSORBIDE MONONITRATE 30 MG TABLET PO SCH (08:07)
[2021-10-28] MEDS: AZITHROMYCIN 250 MG TABLET PO SCH (08:07)
[2021-10-28] MEDS: SPIRONOLACTONE 25 MG TABLET PO SCH (08:07)
[2021-10-28] MEDS: ENOXAPARIN 100 MG/ML SYRINGE SUBCUT SCH (08:31)
[2021-10-28] MEDS ORDERED: ASPIRIN EC 81 MG TABLET PO SCH (09:00)
== END 2021-10-28 13:49 | disposition home health service (06) | DRG 280 ==
LOC: N.ED 01:25 → SUATTDRO 04:23 → N.EDINP 04:23 → N.CC 05:17
PROVIDERS: ADMIT Phlebology; ATTEND Emergency Medicine